=== PATIENT | male | born 1985 | race Caucasian/White ===

== ENCOUNTER → 2019-12-17 | Outpatient (CLI) | payer MEDICAID, SELFPAY ==
[2019-12-17 12:04] LABS: HEMATOCRIT 42.2 % (42.0-52.0); MEAN CORPUSCULAR HEMOGLOBIN 29.7 pg (27.0-33.0); MEAN CORPUSCULAR HGB CONC 33.2 g/dl (32.0-36.5); MEAN CORPUSCULAR VOLUME 89.4 fl (80.0-96.0); PLATELET COUNT, AUTOMATED 215 10^3/uL (150-450); RED BLOOD COUNT 4.72 10^6/uL (4.30-6.10); WHITE BLOOD COUNT 9.5 10^3/uL (4.0-10.0)
[2019-12-17 12:39] LABS: ALBUMIN 3.8 GM/DL (3.2-5.2); ALT/SGPT 62 U/L (12-78); BILIRUBIN,TOTAL 0.4 MG/DL (0.2-1.0); BLOOD UREA NITROGEN 18 MG/DL (7-18); CALCIUM LEVEL 8.9 MG/DL (8.5-10.1); CARBON DIOXIDE LEVEL 33 MEQ/L (21-32); CHLORIDE LEVEL 104 MEQ/L (98-107); CREATININE FOR GFR 0.87 MG/DL (0.70-1.30); GLOMERULAR FILTRATION RATE > 60.0 (>60); GLUCOSE, FASTING 90 MG/DL (70-100); POTASSIUM SERUM 4.7 MEQ/L (3.5-5.1); SODIUM LEVEL 139 MEQ/L (136-145); TOTAL PROTEIN 7.3 GM/DL (6.4-8.2)
[2019-12-17 13:31] LABS: CHLAMYDIA DNA AMPLIFICATION NEGATIVE (NEGATIVE); GC DNA AMPLIFICATION NEGATIVE (NEGATIVE)
[2019-12-18 11:45] LABS: HEPATITIS B SURFACE ANTIGEN NEGATIVE (NEGATIVE)
[2019-12-18 12:14] LABS: HIV 1&2 SCREEN CENTAUR NEGATIVE (NEGATIVE)
[2019-12-18 13:51] LABS: HEPATITIS C VIRUS ABY INDEX < 0.0 INDEX (<0.8)
== END ==
LOC: M LAB 11:11
PROVIDERS: ATTEND Family Medicine
DX: F11.20 Opioid dependence, uncomplicated (principal)

== ENCOUNTER → 2019-12-17 | Outpatient (CLI) | payer MEDICAID, SELFPAY ==
[2019-12-17 12:08] LABS: BASO # 0.1 10^3/uL (0.0-0.2); BASO % 0.7 % (0.0-1.0); EOS # 0.1 10^3/uL (0.0-0.5); EOS % 1.2 % (0.0-3.0); HEMATOCRIT 41.8 % (42.0-52.0); HEMOGLOBIN 14.1 g/dl (13.5-17.5); LYMPH # 2.8 10^3/uL (1.5-5.0); MEAN CORPUSCULAR HEMOGLOBIN 30.1 pg (27.0-33.0); MEAN CORPUSCULAR HGB CONC 33.7 g/dl (32.0-36.5); MEAN CORPUSCULAR VOLUME 89.3 fl (80.0-96.0); MONO # 0.9 10^3/uL (0.0-0.8); MONO % 9.4 % (0.0-5.0); NEUTROPHILS # 5.7 10^3/uL (1.5-8.5); NEUTROPHILS % 59.4 % (36.0-66.0); PLATELET COUNT, AUTOMATED 214 10^3/uL (150-450); RED BLOOD COUNT 4.68 10^6/uL (4.30-6.10); WHITE BLOOD COUNT 9.5 10^3/uL (4.0-10.0)
[2019-12-17 12:35] LABS: APPEARANCE, URINE CLEAR (CLEAR); BACTERIA, URINE AUTO NEGATIVE (NEGATIVE); BILIRUBIN, URINE AUTO NEGATIVE (NEGATIVE); BLOOD, URINE BLOOD NEGATIVE (NEGATIVE); COLOR, URINE STRAW (YELLOW); GLUCOSE, URINE (UA) AUTO NEGATIVE (NEGATIVE); KETONE, URINE AUTO NEGATIVE (NEGATIVE); LEUKOCYTE ESTERASE, URINE AUTO NEGATIVE (NEGATIVE); NITRITE, URINE AUTO NEGATIVE (NEGATIVE); PROTEIN, URINE AUTO NEGATIVE (NEGATIVE); RBC, URINE AUTO 1 /HPF (0-3); SPECIFIC GRAVITY URINE AUTO 1.005 (1.002-1.035); SQUAMOUS EPITHELIAL CELL UR AU 0 /HPF (0-6); UROBILINOGEN, URINE AUTO 0.2 mg/dL (0.0-2.0); WBC, URINE AUTO 0 /HPF (0-3)
[2019-12-17 12:44] LABS: ALBUMIN 3.9 GM/DL (3.2-5.2); ALT/SGPT 61 U/L (12-78); BILIRUBIN,TOTAL 0.4 MG/DL (0.2-1.0); BLOOD UREA NITROGEN 18 MG/DL (7-18); CALCIUM LEVEL 9.2 MG/DL (8.5-10.1); CARBON DIOXIDE LEVEL 35 MEQ/L (21-32); CHLORIDE LEVEL 102 MEQ/L (98-107); CREATININE FOR GFR 0.84 MG/DL (0.70-1.30); GLOMERULAR FILTRATION RATE > 60.0 (>60); GLUCOSE, FASTING 90 MG/DL (70-100); POTASSIUM SERUM 4.5 MEQ/L (3.5-5.1); SODIUM LEVEL 138 MEQ/L (136-145); TOTAL PROTEIN 7.1 GM/DL (6.4-8.2)
[2019-12-18 12:08] LABS: HEPATITIS B SURFACE ANTIGEN NEGATIVE (NEGATIVE)
[2019-12-18 13:54] LABS: HEPATITIS B CORE ANTIBODY IGM NEGATIVE (NEGATIVE); HEPATITIS C VIRUS ABY INDEX < 0.0 INDEX (<0.8)
[2019-12-18 13:56] LABS: HEPATITIS A ANTIBODY IGM NEGATIVE (NEGATIVE)
== END ==
LOC: M LAB 11:06
PROVIDERS: ATTEND Physician Assistant Medical
DX: Z02.2 Encounter for examination for admission to residential institution (principal)

== ENCOUNTER → 2020-07-29 | Outpatient (CLI) | payer OTHER | LOC: M LAB 13:44 | PROVIDERS: ATTEND Physician Assistant Medical | DX: N62 Hypertrophy of breast (principal) ==

== ENCOUNTER → 2020-08-24 | Outpatient (CLI) | payer OTHER ==
[2020-08-24 10:58] LABS: THYROID STIMULATING HORMONE 1.57 uIU/ML (0.358-3.740)
[2020-08-24 11:00] LABS: PROLACTIN 8.9 NG/ML (2.1-17.7)
[2020-08-24 11:01] LABS: FOLLICLE STIMULATING HORMONE 3.3 mIU/mL (1.4-18.1)
== END ==
LOC: M LAB 09:52
PROVIDERS: ATTEND Nurse Practitioner Family
DX: E29.1 Testicular hypofunction (principal)

== ENCOUNTER → 2020-09-07 | Outpatient (CLI) | payer OTHER ==
[2020-09-09 21:07] LABS: TESTOSTERONE %FREE+WEAKLY BOUN 22.6 % (9.0-46.0); TESTOSTERONE FREE+WEAKLY BOUND 16.3 ng/dL (40.0-250.0); TESTOSTERONE TOTAL 72 ng/dL (264-916)
== END ==
LOC: M LAB 09:59
PROVIDERS: ATTEND Nurse Practitioner Family
DX: E29.1 Testicular hypofunction (principal)

== ENCOUNTER 2020-10-24 13:05 | Emergency (ER) | payer OTHER ==
[~2020-10-24] VITALS: Ht 175.3 cm; Wt 103.6 kg
[2020-10-24] MEDS ORDERED: METHADONE 10 MG TAB (S0109) PO ONE (15:00)
[2020-10-24] MEDS ORDERED: DOK1CAP7 PO (16:27)
[2020-10-24] MEDS ORDERED: AMPH1CAP15 PO (16:27)
[2020-10-24] MEDS ORDERED: COLBTA PO (16:27)
[2020-10-24] MEDS ORDERED: PROP40TA62 PO (16:27)
[2020-10-24] MEDS ORDERED: DOXY100C PO (16:27)
[2020-10-24] MEDS ORDERED: DOXE75CA2 PO (16:27)
[2020-10-24] MEDS ORDERED: TEST200I14 PO (16:27)
[2020-10-24] MEDS ORDERED: CITA20TA6 PO (16:27)
[2020-10-24 16:44] VITALS: BP 147/87
== END 2020-10-24 16:55 | disposition home or self-care (01) ==
LOC: M ED 13:05
DX: F15.93 Other stimulant use, unspecified with withdrawal (principal); F11.10 Opioid abuse, uncomplicated; F17.200 Nicotine dependence, unspecified, uncomplicated; Z79.890 Hormone replacement therapy; Z79.899 Other long term (current) drug therapy

== ENCOUNTER 2020-11-15 19:40 | Emergency (ER) | payer OTHER ==
[~2020-11-15] VITALS: Ht 175.3 cm; Wt 96.3 kg
[~2020-11-15 19:40] MED LIST: AMPH1CAP15 PO; CITA20TA6 PO; COLBTA PO; DOK1CAP7 PO; DOXE75CA2 PO; DOXY100C PO; PROP40TA62 PO; TEST200I14 PO
[2020-11-15] MEDS ORDERED: METH10TA2 PO (19:55)
[2020-11-15] MEDS ORDERED: NS 1,000 ML IV ONE ×2 (22:00→23:15)
--- NOTE | 2020-11-15 22:21 | REPVR ---
PROCEDURE INFORMATION: Exam: XR Chest, 2 Views Exam date and time: 11/15/2020 9:51 PM Age: 35 years old Clinical indication: Other: Dyspnea; Additional info: Dyspnea/cough TECHNIQUE: Imaging protocol: XR of the chest Views: 2 views. COMPARISON: No relevant prior studies available. FINDINGS: Lungs: Unremarkable. No consolidation. Pleural space: Unremarkable. No pleural effusion. No pneumothorax. Heart/Mediastinum: Unremarkable. No cardiomegaly. Bones/joints: Unremarkable. IMPRESSION: Negative chest. Electronically signed by: Preet Brown On 11/15/2020 22:21:29 PM
[2020-11-15 22:26] LABS: BASO # 0.1 10^3/uL (0.0-0.2); BASO % 0.6 % (0.0-1.0); EOS % 0.2 % (0.0-3.0); HEMATOCRIT 54.6 % (42.0-52.0); HEMOGLOBIN 18.4 g/dl (13.5-17.5); LYMPH # 2.1 10^3/uL (1.5-5.0); LYMPH % 18.2 % (24.0-44.0); MEAN CORPUSCULAR HEMOGLOBIN 29.4 pg (27.0-33.0); MEAN CORPUSCULAR HGB CONC 33.7 g/dl (32.0-36.5); MEAN CORPUSCULAR VOLUME 87.4 fl (80.0-96.0); MONO # 1.1 10^3/uL (0.0-0.8); MONO % 9.4 % (0.0-5.0); NEUTROPHILS # 8.4 10^3/uL (1.5-8.5); NEUTROPHILS % 71.3 % (36.0-66.0); PLATELET COUNT, AUTOMATED 260 10^3/uL (150-450); RED BLOOD COUNT 6.25 10^6/uL (4.30-6.10); WHITE BLOOD COUNT 11.8 10^3/uL (4.0-10.0)
[2020-11-15 23:04] LABS: ALBUMIN 4.4 GM/DL (3.2-5.2); ALT/SGPT 108 U/L (12-78); BILIRUBIN,DIRECT 0.3 MG/DL (0.0-0.2); BILIRUBIN,TOTAL 1.1 MG/DL (0.2-1.0); BLOOD UREA NITROGEN 14 MG/DL (7-18); CALCIUM LEVEL 10.2 MG/DL (8.5-10.1); CARBON DIOXIDE LEVEL 27 MEQ/L (21-32); CHLORIDE LEVEL 107 MEQ/L (98-107); CREATININE FOR GFR 1.06 MG/DL (0.70-1.30); GLOMERULAR FILTRATION RATE > 60.0 (>60); GLUCOSE, FASTING 87 MG/DL (70-100); POTASSIUM SERUM 4.1 MEQ/L (3.5-5.1); SODIUM LEVEL 141 MEQ/L (136-145); TOTAL PROTEIN 8.6 GM/DL (6.4-8.2)
[2020-11-15] MEDS ORDERED: KETOROLAC 30 MG/ML 1ML VIAL IV ONE (23:15)
[2020-11-16] MEDS ORDERED: METHADONE 10 MG TAB (S0109) PO ONE (01:15)
[2020-11-16] MEDS ORDERED: KETOROLAC 30 MG/ML 1ML VIAL IV ONE (01:15)
[2020-11-16] MEDS ORDERED: AUGM875T28 PO (02:32)
[2020-11-16] MEDS ORDERED: AUGMENTIN 875 MG TAB PO ONE (02:45)
[2020-11-16 03:25] VITALS: BP 149/78
== END 2020-11-16 03:30 | disposition home or self-care (01) ==
LOC: M ED 19:40
DX: J06.9 Acute upper respiratory infection, unspecified (principal); F11.23 Opioid dependence with withdrawal; Z20.822 Contact with and (suspected) exposure to COVID-19; F17.200 Nicotine dependence, unspecified, uncomplicated; Z79.899 Other long term (current) drug therapy
CPT/HCPCS: 36415; 71046; 80048; 80076; 84443; 85025; 87040; 87486; 87581; 87633; 87798; 93041; 94760; 96360; 96361; 96374; 99285; J1885

== ENCOUNTER 2020-12-06 12:47 | Emergency (ER) | payer OTHER ==
[~2020-12-06] VITALS: Ht 175.3 cm; Wt 96.3 kg
[~2020-12-06 12:47] MED LIST changes: +AUGM875T28 PO; +METH10TA2 PO
[2020-12-06] MEDS ORDERED: LORazepam 2 MG/ML VIAL IV STA (12:53)
[2020-12-06] MEDS ORDERED: NS 1,000 ML IV ONE ×3 (13:00→15:45)
[2020-12-06 13:17] LABS: BASO # 0.1 10^3/uL (0.0-0.2); BASO % 0.5 % (0.0-1.0); HEMATOCRIT 50.5 % (42.0-52.0); HEMOGLOBIN 17.4 g/dl (13.5-17.5); LYMPH # 1.4 10^3/uL (1.5-5.0); LYMPH % 14.5 % (24.0-44.0); MEAN CORPUSCULAR HEMOGLOBIN 28.8 pg (27.0-33.0); MEAN CORPUSCULAR HGB CONC 34.5 g/dl (32.0-36.5); MEAN CORPUSCULAR VOLUME 83.6 fl (80.0-96.0); MONO # 0.6 10^3/uL (0.0-0.8); MONO % 6.6 % (0.0-5.0); NEUTROPHILS # 7.5 10^3/uL (1.5-8.5); PLATELET COUNT, AUTOMATED 382 10^3/uL (150-450); RED BLOOD COUNT 6.04 10^6/uL (4.30-6.10); WHITE BLOOD COUNT 9.7 10^3/uL (4.0-10.0)
[2020-12-06 14:03] LABS: ACETAMINOPHEN LEVEL < 2.0 UG/ML (10.0-30.0); ALBUMIN 4.1 GM/DL (3.2-5.2); ALT/SGPT 70 U/L (12-78); BILIRUBIN,DIRECT 0.3 MG/DL (0.0-0.2); BLOOD UREA NITROGEN 15 MG/DL (7-18); CALCIUM LEVEL 9.3 MG/DL (8.5-10.1); CARBON DIOXIDE LEVEL 25 MEQ/L (21-32); CHLORIDE LEVEL 102 MEQ/L (98-107); CPK CREATINE PHOSPHOKINASE 87 U/L (39-308); CREATININE FOR GFR 1.53 MG/DL (0.70-1.30); ETHYL ALCOHOL (ETHANOL) < 0.003 % (0.000-0.010); GLOMERULAR FILTRATION RATE 55.7 (>60); GLUCOSE, FASTING 251 MG/DL (70-100); POTASSIUM SERUM 3.7 MEQ/L (3.5-5.1); SALICYLATE LEVEL < 1.7 MG/DL (5.0-30.0); SODIUM LEVEL 136 MEQ/L (136-145); TOTAL PROTEIN 8.5 GM/DL (6.4-8.2)
[2020-12-06 16:17] VITALS: BP 133/63
--- NOTE | 2020-12-07 14:40 | ECGEPIP ---
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
== END 2020-12-06 16:37 | disposition home or self-care (01) ==
LOC: EDBD 12:47 → M ED 12:47
DX: F15.10 Other stimulant abuse, uncomplicated (principal); R00.0 Tachycardia, unspecified; Z79.899 Other long term (current) drug therapy
CPT/HCPCS: 36415; 80048; 80076; 82550; 84443; 85025; 93005; 93041; 94760; 96361; 96374; 99285; G0480; J2060

== ENCOUNTER 2020-12-28 14:57 | Emergency (ER) | payer OTHER ==
[~2020-12-28] VITALS: Ht 175.3 cm; Wt 86.4 kg
[2020-12-28] MEDS ORDERED: NS 1,000 ML IV ONE (15:15)
[2020-12-28] MEDS ORDERED: ACETAMINOPHEN TAB 650MG DOSE (2X325MG) PO ONE (15:15)
[2020-12-28 15:38] LABS: HEMATOCRIT 50.9 % (42.0-52.0); HEMOGLOBIN 17.9 g/dl (13.5-17.5); MEAN CORPUSCULAR HEMOGLOBIN 30.1 pg (27.0-33.0); MEAN CORPUSCULAR HGB CONC 35.2 g/dl (32.0-36.5); MEAN CORPUSCULAR VOLUME 85.5 fl (80.0-96.0); PLATELET COUNT, AUTOMATED 213 10^3/uL (150-450); RED BLOOD COUNT 5.95 10^6/uL (4.30-6.10); WHITE BLOOD COUNT 11.2 10^3/uL (4.0-10.0)
--- NOTE | 2020-12-28 15:51 | REP ---
INDICATION: SOB. COMPARISON: Comparison chest x-ray 15 November 2020. TECHNIQUE: Two views.. FINDINGS: EKG monitoring electrodes overlie the chest. The lungs are well inflated and clear. The pleural angles are sharp. Heart size is normal. Pulmonary vasculature is not increased. No bony abnormality is seen. IMPRESSION: No active disease.. <Electronically signed by Ochoa Tomlin > 12/28/20 [id number]
--- OUTSIDE RECORDS SUMMARY | 2020-12-28 16:19 | CCD ---
Author Author [facility] Organization [facility] Address Unknown Phone Unavailable Care Team Providers Care Heating And Ventilating Drafter Name Role Phone DARLENE BAUM MD Unavailable Unavailable ASADARLENE Khan MD Unavailable Unavailable ASADARLENE Khan MD Unavailable Unavailable ASADARLENE Khan MD Unavailable Unavailable ASADARLENE Khan MD Unavailable Unavailable ASADARLENE Khan MD Unavailable Unavailable DARLENE BAUM MD Unavailable Unavailable Yasmany Pereyra MD Unavailable Unavailable Yasmany Pereyra MD Unavailable Unavailable Yasmany Pereyra MD Unavailable Unavailable Preet Jj Jr DO Unavailable Unavailable Preet Jj Jr DO Unavailable Unavailable Preet Jj Jr DO Unavailable Unavailable Preet Jj Jr DO Unavailable Unavailable Preet Jj Jr DO Unavailable Unavailable COOK, B PILY NURSING INFORMATICS SPECIALIST Unavailable Unavailable COOK, B PILY NURSING INFORMATICS SPECIALIST Unavailable Unavailable COOK, B PILY NURSING INFORMATICS SPECIALIST Unavailable Unavailable COOK, B PILY NURSING INFORMATICS SPECIALIST Unavailable Unavailable COOK, B PILY NURSING INFORMATICS SPECIALIST Unavailable Unavailable COOK, B PILY NURSING INFORMATICS SPECIALIST Unavailable Unavailable COOK, B PILY NURSING INFORMATICS SPECIALIST Unavailable Unavailable COOK, B PILY NURSING INFORMATICS SPECIALIST Unavailable Unavailable COOK, B PILY NURSING INFORMATICS SPECIALIST Unavailable Unavailable COOK, B PILY NURSING INFORMATICS SPECIALIST Unavailable Unavailable COOK, B PILY NURSING INFORMATICS SPECIALIST Unavailable Unavailable COOK, B PILY NURSING INFORMATICS SPECIALIST Unavailable Unavailable COOK, B PILY NURSING INFORMATICS SPECIALIST Unavailable Unavailable COOK, B PILY NURSING INFORMATICS SPECIALIST Unavailable Unavailable COOK, B PILY NURSING INFORMATICS SPECIALIST Unavailable Unavailable COOK, B PILY NURSING INFORMATICS SPECIALIST Unavailable Unavailable COOK, B PILY NURSING INFORMATICS SPECIALIST Unavailable Unavailable COOK, B PILY NURSING INFORMATICS SPECIALIST Unavailable Unavailable COOK, B PILY NURSING INFORMATICS SPECIALIST Unavailable Unavailable COOK, B PILY NURSING INFORMATICS SPECIALIST Unavailable Unavailable COOK, B PILY NURSING INFORMATICS SPECIALIST Unavailable Unavailable COOK, B PILY NURSING INFORMATICS SPECIALIST Unavailable Unavailable COOK, B PILY NURSING INFORMATICS SPECIALIST Unavailable Unavailable COOK, B PILY NURSING INFORMATICS SPECIALIST Unavailable Unavailable COOK, B PILY NURSING INFORMATICS SPECIALIST Unavailable Unavailable COOK, B PILY NURSING INFORMATICS SPECIALIST Unavailable Unavailable COOK, B PILY NURSING INFORMATICS SPECIALIST Unavailable Unavailable COOK, B PILY NURSING INFORMATICS SPECIALIST Unavailable Unavailable COOK, B PILY NURSING INFORMATICS SPECIALIST Unavailable Unavailable COOK, B PILY NURSING INFORMATICS SPECIALIST Unavailable Unavailable COOK, B PILY NURSING INFORMATICS SPECIALIST Unavailable Unavailable COOK, B PILY NURSING INFORMATICS SPECIALIST Unavailable Unavailable COOK, B PILY NURSING INFORMATICS SPECIALIST Unavailable Unavailable COOK, B PILY NURSING INFORMATICS SPECIALIST Unavailable Unavailable COOK, B PILY NURSING INFORMATICS SPECIALIST Unavailable Unavailable COOK, B PILY NURSING INFORMATICS SPECIALIST Unavailable Unavailable COOK, B PILY NURSING INFORMATICS SPECIALIST Unavailable Unavailable COOK, B PILY NURSING INFORMATICS SPECIALIST Unavailable Unavailable COOK, B PILY NURSING INFORMATICS SPECIALIST Unavailable Unavailable COOK, B PILY NURSING INFORMATICS SPECIALIST Unavailable Unavailable COOK, B PILY NURSING INFORMATICS SPECIALIST Unavailable Unavailable COOK, B PILY NURSING INFORMATICS SPECIALIST Unavailable Unavailable COOK, B PILY NURSING INFORMATICS SPECIALIST Unavailable Unavailable COOK, B PILY NURSING INFORMATICS SPECIALIST Unavailable Unavailable COOK, B PILY NURSING INFORMATICS SPECIALIST Unavailable Unavailable COOK, B PILY NURSING INFORMATICS SPECIALIST Unavailable Unavailable COOK, B PILY NURSING INFORMATICS SPECIALIST Unavailable Unavailable COOK, B PILY NURSING INFORMATICS SPECIALIST Unavailable Unavailable COOK, B PILY NURSING INFORMATICS SPECIALIST Unavailable Unavailable COOK, B PILY NURSING INFORMATICS SPECIALIST Unavailable Unavailable COOK, B PILY NURSING INFORMATICS SPECIALIST Unavailable Unavailable COOK, B PILY NURSING INFORMATICS SPECIALIST Unavailable Unavailable COOK, B PILY NURSING INFORMATICS SPECIALIST Unavailable Unavailable COOK, B PILY NURSING INFORMATICS SPECIALIST Unavailable Unavailable COOK, B PILY NURSING INFORMATICS SPECIALIST Unavailable Unavailable COOK, B PILY NURSING INFORMATICS SPECIALIST Unavailable Unavailable COOK, B PILY NURSING INFORMATICS SPECIALIST Unavailable Unavailable COOK, B PILY NURSING INFORMATICS SPECIALIST Unavailable Unavailable COOK, B PILY NURSING INFORMATICS SPECIALIST Unavailable Unavailable COOK, B PILY NURSING INFORMATICS SPECIALIST Unavailable Unavailable COOK, B PILY NURSING INFORMATICS SPECIALIST Unavailable Unavailable COOK, B PILY NURSING INFORMATICS SPECIALIST Unavailable Unavailable COOK, B PILY NURSING INFORMATICS SPECIALIST Unavailable Unavailable COOK, B PILY NURSING INFORMATICS SPECIALIST Unavailable Unavailable Asar, Hamilton Colon MD Unavailable Unavailable Ja Schaefer MD Unavailable Unavailable Ja Schaefer MD Unavailable Unavailable Myrna Moore MD Unavailable Unavailable Myrna Moore MD Unavailable Unavailable Khaliq, Nubiaparja MD Unavailable Unavailable Khaliq, Mahpara MD Unavailable Unavailable Khaliq, Mahpara MD Unavailable Unavailable Khaliq, Mahpara MD Unavailable Unavailable Jose, Marciano DO Unavailable Unavailable Jose, Marciano DO Unavailable Unavailable [place], Marciano DO Unavailable Unavailable Jose, Marciano DO Unavailable Unavailable NOSTROM, SERAFIN NURSING INFORMATICS SPECIALIST Unavailable Unavailable NOSTROM, SERAFIN NURSING INFORMATICS SPECIALIST Unavailable Unavailable NOSTROM, SERAFIN NURSING INFORMATICS SPECIALIST Unavailable Unavailable NOSTROM, SERAFIN NURSING INFORMATICS SPECIALIST Unavailable Unavailable NOSTROM, SERAFIN NURSING INFORMATICS SPECIALIST Unavailable Unavailable NOSTROM, SERAFIN NURSING INFORMATICS SPECIALIST Unavailable Unavailable NOSTROM, SERAFIN NURSING INFORMATICS SPECIALIST Unavailable Unavailable NOSTROM, SERAFIN NURSING INFORMATICS SPECIALIST Unavailable Unavailable NOSTROM, SERAFIN NURSING INFORMATICS SPECIALIST Unavailable Unavailable NOSTROM, SERAFIN NURSING INFORMATICS SPECIALIST Unavailable Unavailable NOSTROM, SERAFIN NURSING INFORMATICS SPECIALIST Unavailable Unavailable NOSTROM, SERAFIN NURSING INFORMATICS SPECIALIST Unavailable Unavailable NOSTROM, SERAFIN NURSING INFORMATICS SPECIALIST Unavailable Unavailable Dille, E Genesis DDS Unavailable Unavailable Dille, E Genesis DDS Unavailable Unavailable Dille, E Genesis DDS Unavailable Unavailable Dille, E Genesis DDS Unavailable Unavailable Ja Schaefer MD Unavailable Unavailable LORENC, HALIMA MYERS Unavailable Unavailable LORENC, HALIMA MYERS Unavailable Unavailable LORENC, HALIMA MYERS Unavailable Unavailable LORENC, HALIMA MYERS Unavailable Unavailable LORENC, HALIMA MYERS Unavailable Unavailable LORENC, HALIMA MYERS Unavailable Unavailable LORENC, HALIMA MYERS Unavailable Unavailable Steve Jj Jr DO Unavailable Unavailable Nostrom, R Serafin DISABILITY BENEFITS SPECIALIST Unavailable Unavailable Re-disclosure Warning The records that you are about to access may contain information from federally-assisted alcohol or drug abuse programs. If such information is present, then the following federally mandated warning applies: This information has been disclosed to you from records protected by federal confidentiality rules (42 CFR part 2). The federal rules prohibit you from making any further disclosure of this information unless further disclosure is expressly permitted by the written consent of the person to whom it pertains or as otherwise permitted by 42 CFR part 2. A general authorization for the release of medical or other information is NOT sufficient for this purpose. The Federal rules restrict any use of the information to criminally investigate or prosecute any alcohol or drug abuse patient.The records that you are about to access may contain highly sensitive health information, the redisclosure of which is protected by Article 27-F of the [facility] Public Health law. If you continue you may have access to information: Regarding HIV / AIDS; Provided by facilities licensed or operated by the [facility] Office of Mental Health; or Provided by the [facility] Office for People With Developmental Disabilities. If such information is present, then the following [facility] mandated warning applies: This information has been disclosed to you from confidential records which are protected by state law. State law prohibits you from making any further disclosure of this information without the specific written consent of the person to whom it pertains, or as otherwise permitted by law. Any unauthorized further disclosure in violation of state law may result in a fine or fci sentence or both. A general authorization for the release of medical or other information is NOT sufficient authorization for further disc losure. Allergies and Adverse Reactions Type Description Substance Reaction Status Data Source(s ) Drug allergy Drug allergy No Known Drug Allergies [facility] Encounters Encounter Providers Location Date Indications Data Source(s ) Outpatient [address] [facility] [id number] 10/18/2020 12:00:00 AM EST eCW1 (Formerly [facility]) Outpatient Attender: PILY AVENDAÑO NP Physical Therapy 09/29/2020 0 8:45:00 AM EST [facility] ([facility]) Outpatient Attender: PILY AVENDAÑO NP Physical Therapy 08/23/2020 0 1:45:00 PM EDT [facility] ([facility]) Outpatient Attender: Genesis Arreola DDS 07/30/2020 07:51:[address] [facility] Outpatient Attender: Genesis Arreola DDS 07/29/2020 11:02:[address] [facility] Outpatient Attender: Genesis Arreola DDS 07/29/2020 10:00:[address] [facility] Outpatient Attender: Genesis Arreola DDS 07/29/2020 12:02:[address] [facility] Outpatient Attender: Genesis Arreola DDS 07/28/2020 10:52:[address] [facility] Outpatient Attender: Genesis Arreola DDS 07/28/2020 10:50:[address] [facility] Outpatient Attender: Genesis Arreola DDS 07/01/2020 02:15:[address] [facility] Outpatient Attender: Genesis Arreola DDS 05/09/2020 10:17:[address] [facility] Outpatient Attender: Genesis Arreola DDS 05/09/2020 09:35:[address] [facility] Outpatient Attender: Genesis Arreola DDS 04/25/2020 02:14:01 P [facility] Outpatient Attender: Genesis Christianole DDS 04/25/2020 02:14:00 P [facility] Outpatient Attender: Genesis Christianoleandro DDS 04/25/2020 01:44:00 P [facility] Outpatient Attender: Genesis Maxwell DDS 04/22/2020 12:02:18 A [facility] Outpatient Attender: Genesis Maxwell DDS 04/21/2020 10:13:01 A [facility] Outpatient Attender: Genesis Maxwell DDS 04/19/2020 08:02:39 P [facility] Outpatient Attender: Genesis Maxwell DDS 04/09/2020 12:18:44 A [facility] Outpatient Attender: Genesis Maxwell CAUSEYS 01/25/2020 09:01:07 P [facility] Outpatient Attender: Genesis Maxwell CAUSEYS 01/25/2020 01:07:04 P [facility] Outpatient Attender: Genesis Maxwell DDS 01/25/2020 12:32:01 P [facility] Outpatient Attender: Genesis Maxwell DDS 01/25/2020 12:25:00 P [facility] Outpatient Attender: Genesis Maxwell DDS 01/20/2020 09:01:08 P [facility] Outpatient Attender: Genesis Maxwell DDS 01/20/2020 01:42:03 P [facility] Outpatient Attender: Genesis Maxwell DDS 01/20/2020 01:42:02 P [facility] Outpatient Attender: Genesis Maxwell DDS 01/20/2020 12:57:01 P [facility] Outpatient Attender: Genesis Arreola DDS 01/12/2020 08:12:00 A [facility] Outpatient Attender: Genesis Arreola DDS 12/23/2019 05:22:01 P [facility] Outpatient Attender: Genesis Arreola DDS 12/23/2019 08:44:01 A [facility] Outpatient Attender: Genesis Arreola DDS 12/23/2019 08:43:03 A [facility] Outpatient Attender: Genesis Arreola DDS 12/23/2019 07:34:00 A [facility] Outpatient Attender: Genesis Arreola DDS 12/22/2019 04:24:00 P [facility] Outpatient Attender: Genesis Arreola DDS 12/22/2019 04:21:00 P [facility] Outpatient Attender: Genesis Arreola DDS 12/22/2019 04:20:01 P [facility] Outpatient Attender: Genesis Arreola DDS 12/22/2019 02:36:02 P [facility] Outpatient Attender: Genesis Arreola DDS 12/22/2019 02:14:02 P [facility] Outpatient [facility] 12/22/2019 02:13:02 PM [facility] Outpatient [facility] 12/22/2019 12:24:00 PM [facility] Outpatient [facility] 12/22/2019 12:08:00 PM [facility] Outpatient [facility] 12/14/2019 01:17:01 PM [facility]patient [facility] 12/09/2019 09:48:01 AM [facility]patient [facility] 12/04/2019 09:01:07 PM [facility] Outpatient [facility] 12/04/2019 01:52:01 PM [facility] Outpatient [facility] 12/04/2019 12:04:00 PM [facility] Outpatient [facility] 11/18/2019 09:49:00 AM [facility] Inpatient Attender: Darlene Cisse nder: DARLENE BAUM MDAdmitter: DARLENE BAUM MD [facility] 11/17/2019 04:22:00 PM [facility] 12/08/2019 10:25:00 AM [facility] PSYCHOACTIVE SUBSTANCE DEPENDENCE [facility] PSYCHOACTIVE SUBSTANCE DEPENDENCE Patient discharged. Outpatient [facility] 11/15/2019 12:26:00 PM [facility] Inpatient Attender: Keyon Inman kassandra: Keyon Pereyra MDAdmitter: Keyon Pereyra MD -[facility] 11/14/2019 09:00:00 PM EST - 11/17/2019 02:52:00 PM EST F1920 [facility] F1920 Patient discharged. Inpatient Attender: Marciano C[place] nder: Yandy Schaefer MDAttender: Yandy Schaefer MDAdmitter: Yandy Silvano MDConsultant: Myrna Moore MDConsultant: Serafin Muñoz RNPConsultant: SERAFIN MUÑOZ NURSING INFORMATICS SPECIALIST [facility] 01/2020 09:32:00 PM EST - 11/14/2019 01:30:00 PM EST CHEST PAIN, COCAINE ABUSE-IV [facility] CHEST PAIN, COCAINE ABUSE-IV Patient discharged. Inpatient Attender: Jr Steve Pederson OAttender: Steve Jj JrAdmitter: Steve Jj Jr ED-[facility] 09/23/2019 02:39:00 PM EST - 09/30/2019 09:00:00 AM EST F19.20 [facility] F19.20 Patient discharged. Emergency Attender: HALIMA CONROY MD [facility] 2018 08:19:00 AM EST - 09/23/2019 02:07:[address] [facility] OVERDOSE Patient discharged. Medications Medication Brand Name Start Date Product Form Dose Route Admi nistrative Instructions Pharmacy Instructions Status Indications Reaction Description Data Source(s) doxycycline hyclate 100 MG Oral Capsule Doxycycline Hy clate 100 MG Doxycycline Hyclate 100 MG 10/18/2020 12:00:00 AM EST 1.0 {capsule} active Doxycycline Hyclate 100 MG eCW1 (Formerly [facility]) Colchicine 0.5 MG / Probenecid 500 MG Or al Tablet Colchicine-Probenecid 0.5-500 MG Colchicine-Probenecid 0.5-500 MG 10/18/2020 12:00:00 AM EST 1.0 {tablet} active Colchicine-Probenecid 0.5 -500 MG eCW1 (Formerly [facility]) Insurance Providers Payer name Policy type / Coverage type Policy ID Covered republican ID Covered republican's relationship to [place] Policy [place] Plan Information [facility] [id number] SP [id number] [facility] O [id number] S [id number] [facility] [id number] SP [id number] [facility] [id number] SP [id number] [facility] [id number] SP [id number] [facility]) O [id number] S [id number] [facility] O UNAVAILABLE S UNAVAILABLE Managed Care - [facility] Community Plan P [id number] S [id number] Medicaid S [id number] S [id number] [employer] COMMUNITY PL[facility] [id number] SP [id number] Medicaid S [id number] S [id number] Managed Care - [facility] Community Plan P UNAVAILABLE S UNAVAILABLE MEDICAID [id number] SP [id number] MEDICAID [id number] SP [id number] Medicaid S UNAVAILABLE S UNAVAILA BLE SELF PAY ONLY [id number] SP [id number] MEDICAID [id number] S [id number] MEDICAID [id number] S [id number] SELF PAY S SELF PAY S [facility] [id number] S [id number] Problems, Conditions, and Diagnoses Code Display Name Description Problem Type Effective Dates Data Source(s) N48.6 [id number] Peyronie disease Problem 10/18/2020 12:00:00 AM EST eCW1 (Formerly [facility]) 521.00 Dental caries Dental caries 04/25/2020 02:13:54 PM EDT [facility] [id number] Gastro-esophageal reflux disease without esophagitis Gastro-esophageal reflux disease without esophagitis 01/20/2020 01:41:40 PM ED T [facility] 564.09 Chronic constipation Chronic constipation 01/19 01:41:40 PM EDT [facility] 724.2 Acute low back pain Acute low back pain 020 01:41:40 PM EDT [facility] 525.64 Fractured dental restorative material wi th loss of material Fractured dental restorative material with loss of material 12/23/2019 08:42:42 AM [facility] R73.9 Hyperglycemia, unspecified HYPERGLYCEMIA, UNSPECIFIED Diagnosis 11/17/2019 04:22:00 PM [facility] E87.1 Hypo-osmolality and hyponatremia HYPO-OSMOLALITY AND HYPONATREMIA Diagnosis 11/17/2019 04:22:00 PM [facility] E55.9 Vitamin D deficiency, unspecified VITAMIN D DEFI CIENCY, UNSPECIFIED Diagnosis 11/17/2019 04:22:00 PM [facility] 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 SPECIFIC READING DISORDER Di agnosis 11/17/2019 04:22:00 PM [facility] F90.9 Attention-deficit hyperactivity disorder , unspecified type ATTENTION- DEFICIT HYPERACTIVITY DISORDER, UNSPECIFIED TYPE Diagnosis 11/17 04:22:00 PM [facility] F41.9 Anxiety disorder, unspecified ANXIETY DISORDER, UNSPEC IFIED Diagnosis 11/17/2019 04:22:00 PM [facility] F32.9 Major depressive disorder, single episod e, unspecified MAJOR DEPRESSIVE DISORDER, SINGLE EPISODE, UNSPECIFIED Diagnosis 11/17/2019 04:22:00 PM [facility] Z86.19 Personal history of other infectious and parasitic diseases PERSONAL HISTORY OF OTHER INFECTIOUS AND PARASITIC DISEASES Diagnosis 05/2020 04:22:00 PM [facility] F12.20 Cannabis dependence, uncomplicated CANNABIS DEPE NDENCE, UNCOMPLICATED Diagnosis 11/17/2019 04:22:00 PM [facility] F17.210 Nicotine dependence, cigarettes, uncompl icated NICOTINE DEPENDENCE, CIGARETTES, UNCOMPLICATED Diagnosis 11/17/2019 04:22:00 PM [facility] F14.20 Cocaine dependence, uncomplicated COCAINE DEPEND ENCE, UNCOMPLICATED Diagnosis 11/17/2019 04:22:00 PM [facility] F11.20 Opioid dependence, uncomplicated OPIOID DEPENDEN CE, UNCOMPLICATED Diagnosis 11/17/2019 04:22:00 PM [facility] Y92.[address] or not applicable UNSPECIFIED PLACE OR NOT APPLICABLE Diagnosis 11/14/2019 09:00:00 PM [facility] X58.XXXA Exposure to other specified factors, ini tial encounter EXPOSURE TO OTHER SPECIFIED FACTORS, INITIAL ENCOUNTER Diagnosis 11/14/2019 09:00: 00 PM [facility] S90.229A Contusion of unspecified les ser toe(s) with damage to nail, initial encounter CONTUSION OF UNSP LESSER TOE(S) W DAMAGE TO NAIL, INIT Diagn osis 11/14/2019 09:00:00 PM [facility] F17.210 Nicotine dependence, cigarettes, uncompl icated NICOTINE DEPENDENCE, CIGARETTES, UNCOMPLICATED Diagnosis 11/14/2019 09:00:00 PM [facility] Z86.19 Personal history of other infectious and parasitic diseases PERSONAL HISTORY OF OTHER INFECTIOUS AND PARASITIC DISEASES Diagnosis 02/2020 09:00:00 PM [facility] F14.23 Cocaine dependence with withdrawal COCAINE DEPEN DENCE WITH WITHDRAWAL Diagnosis 11/14/2019 09:00:00 PM [facility] F11.23 Opioid dependence with withdrawal OPIOID DEPENDE NCE WITH WITHDRAWAL Diagnosis 11/14/2019 09:00:00 PM [facility] R07.9 Chest pain, unspecified CHEST PAIN, UNSPECIFIED Diagno sis 11/13/2019 09:32:00 PM [facility] F19.10 Other psychoactive substance abuse, unco mplicated OTHER PSYCHOACTIVE SUBSTANCE ABUSE, UNCOMPLICATED Diagnosis 11/13/2019 09:32:00 PM [facility] F14.129 Cocaine abuse with intoxication, unspeci fied COCAINE ABUSE WITH INTOXICATION, UNSPECIFIED Diagnosis 11/13/2019 09:32:00 PM [facility] Surgeries/Procedures Procedure Description Date Indications Data Source(s) Measurement of Cardiac Electrical Activity, External A pproach MEASUREMENT OF CARDIAC ELECTRICAL ACTIVITY, RN CARDIAC APPROACH 11/14/2019 12:00:00 AM [facility] Medication Management for Substance Abuse Treatment, N aloxone MEDS MGMT FOR SUBSTANCE ABUSE TREATMENT, NALOXONE 11/14/2019 12:00:00 AM [facility] Individual Counseling for Substance Abuse Treatment, C ontinuing Care INDIV RN RADIATION ONCOLOGY FOR SUBSTANCE ABUSE TREATMENT, CONTINUING CARE 11/14/2019 12:00:00 AM [facility] Detoxification Services for Substance Abuse Treatment DETOXIFICATION SERVICES FOR SUBSTANCE ABUSE TREATMENT 11/14/2019 12:00:00 AM [facility] MAGNESIUM ASSAY OF MAGNESIUM 11/14/2019 12:00:00 AM [facility] BASIC METABOLIC PANEL CALCIUM TOTAL METABOLIC PANEL TOTAL CA 11/14/2019 12:00:00 AM [facility] Non-covered item or service 11/14/2019 12:00:00 AM [facility] [id number] X-RAY EXAM CHEST 1 VIEW 11/13/2019 12:00:00 AM [facility] ECG ROUTINE ECG W/LEAST 12 LDS TRCG ONLY W/O I&R ELECTROCARD IOGRAM TRACING 11/13/2019 12:00:00 AM [facility] CULTURE BACTERIAL BLOOD AEROBIC W/ID ISOLATES BLOOD CULTURE FOR BACTERIA 11/13/2019 12:00:00 AM [facility] URINALYSIS MICROSCOPIC ONLY MICROSCOPIC EXAM OF URINE 2019 12:00:00 AM [facility] COLLECTION VENOUS BLOOD VENIPUNCTURE ROUTINE VENIPUNCTURE 12:00:00 AM [facility] THROMBOPLASTIN TIME PARTIAL PLASMA/WHOLE BLOOD THROMBOPLASTI N TIME PARTIAL 11/13/2019 12:00:00 AM [facility] PROTHROMBIN TIME PROTHROMBIN TIME 11/13/2019 12:00:00 AM [facility] BLOOD COUNT COMPLETE AUTO&AUTO DIFRNTL WBC COUNT COMPLETE CB C W/AUTO DIFF WBC 11/13/2019 12:00:00 AM [facility] [address]7330 DRUG SCREEN QUANTALCOHOLS 11/13/2019 12:00:00 AM [facility] [id number] DRUG TEST PRSMV CHEM ANLYZR 11/13/2019 12:00:00 AM [facility] [address] ANALGESICS NON-OPIOID 1 OR 2 11/13/2019 12:00:00 AM [facility] CREATINE KINASE TOTAL ASSAY OF CK (CPK) 11/13/2019 12:00:00 AM [facility] NATRIURETIC PEPTIDE ASSAY OF NATRIURETIC PEPTIDE 11/13/2019 12:00:0 0 AM [facility] LACTATE ASSAY OF LACTIC ACID 11/13/2019 12:00:00 AM [facility] TROPONIN QUANTITATIVE ASSAY OF TROPONIN QUANT 11/13/2019 12:00:00 A M [facility] LIPASE ASSAY OF LIPASE 11/13/2019 12:00:00 AM [facility] COMPREHENSIVE METABOLIC PANEL COMPREHEN METABOLIC PANEL 01/2020 12:00:00 AM [facility] Injection, lorazepam, 2 mg 11/13/2019 12:00:00 AM [facility] EMERGENCY DEPT VISIT HIGH SEVERITY&THREAT FUNCJ EMERGENCY DE PT VISIT 11/13/2019 12:00:00 AM [facility] Hospital observation service, per hour 11/13/2019 12:0 0:00 AM [facility] Results ID Date Data Source [id number] 11/15/2020 08:00:00 PM EST [facility] Name Value Range Interpretation Code Description Data Celeste rce(s) Supporting Document(s) SARS-CoV-2 (COVID 19) NEGATIVE - SARS-CoV-2 (COVID19) [facility] This lab was ordered by [facility] a nd reported by [facility]. ID Date Data Source [id number] 09/07/2020 10:09:00 AM EDT [facility] ([facility]) Name Value Range Interpretation Code Description Data Celeste rce(s) Supporting Document(s) Testosterone %Free+Weakly Boun 22.6 % 9.0-46.0 [facility] ([facility]) This test was developed and its performa nce characteristics determined by [facility]. It has not been cleared or approved by the Food and Drug Administration. Testosterone Total 72 ng/dL [id number] [facility] ([facility]) <content>Adult male reference interval i s based on a population of</content>
<content>healthy nonobese males (BMI <30) between 19 and 39 years</content>
<content>old. [place], et.al. JCEM 2017,102;2026-3587. PMID:</content>
<content>[id number].</content>
<content></content> Testosterone Free+Weakly Bound 16.3 ng/dL 40.0-250.0 [facility] ([facility]) Performed at: RN - [facility] [address] [id number] Tractor Expert: Carmen Dodd MD, Phone: [phone] Performed at: - [facility] [address] [id number] Tractor Expert: Sherri Ge MD, Phone: [phone] ID Date Data Source [id number] 09/07/2020 10:09:00 AM EDT [facility] ([facility]) Name Value Range Interpretation Code Description Data Celeste rce(s) Supporting Document(s) Testosterone [Mass/volume] in Serum or Plasma 62 ng/dL [id number] [facility] ([facility]) NORMAL RANGES ARE FOR ADULT FEMALES (OVE R 15 YRS) AND MALES (OVER 19 YRS). FOR PEDIATRIC RANGES PLE ASE CONSULT LITERATURE. ID Date Data Source [id number] 08/24/2020 10:10:00 AM EDT [facility] ([facility] ) Name Value Range Interpretation Code Description Data Celeste rce(s) Supporting Document(s) Testosterone Total Laboratory test result [facility] ([facility] ) Quantity was not sufficient for analysis . Testosterone Free+Weakly Bound Laboratory test result [facility] ([facility] ) Quantity was not sufficient for analysis . Testosterone %Free+Weakly Boun Laboratory test result [facility] ([facility] ) Quantity was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 DAST Score: 7 DAST Interpretation: Referral to Treatment Performed by: Perfecto Goldstein MA, January 20, 2020 1:14 PMPatient History Medical History:ADHDAlcohol abuseAnxietyBipolar disorderDepressionPTSDSubstance abuseDomestic violence/abuseSurgical History:dental surgeryFamily History:Heart disease (Mother)Cancer - Breast (Mother)Social/Personal History: Advised to Quit/Tobacco Education: YesChief Complaintannual exam/ establish careHistory of Present Illness (HPI)Tra Workman MA, am scribing for, and in the presence of, Adeel Villegas, 34 y/o pt here today to establish care. pt is on methadone through [facility]. pt states he has no concerns he is just here to establish care. pt denies SOB. pt states that he does have acid reflux. pt takes colace due to the constipation from the methadone. DO advises pt to take lactolose instead of colace, as colace can become addictive and if he stops taking it he could stop deficating. pt would like probiotics. pt does see counselor at [facility]. pt does complain of back pain. pt's heart is good, lungs are clear. DO will manipulate. Problem ReviewProblem List was reviewed and/or updated during this visit.Medication Reconciliation & ReviewMedication List was reviewed and/or updated during this visit, including review of any gxwf-[id number] medications, herbal therapies, and/or supplements.Allergy ReviewAllergy List was reviewed and/or updated during this visit.Adult Preventive CareProvider Calculated and Reviewed all Clinical Protocols for patient today. Screening Tobacco Screening: Smoking Status: current every day smoker (01/20/2020) Tobacco Use: Currently (01/20/2020) Advised to Quit: Yes (01/20/2020)Labs/Meds/Other Counseling-Nutrition and Physical Activity:BMI Interpretation: Overweight (01/20/2020) Counseling: Done (01/20/2020) Physical Activity: Done (01/20/2020)Review of Systems General: Denies loss of appetite, chills, dizziness, fatigue, fever, continued fever, headache, feeling ill, sweats, night sweats, sleep disturbances, weight loss. Cardiovascular: Denies chest pain, palpitations, feeling faint, trouble breathing w/exertion, SOB upon lying down, SOB at night, peripheral edema, elevated blood pressure, decreased heart rate. Respiratory: Denies cough, difficulty breathing, shortness of breath, excessive sputum, coughing up blood, wheezing, chest pain. Gastrointestinal: Complains of nausea, burning, constipation. Physical ExamGeneral Appearance: well nourished, well hydrated, no acute distressRespiratory, Auscultation: clear to auscultation bilaterally; no rales, rhonchi, or wheezesRespiratory, Effort: no intercostal retractions or use of accessory musclesAbdomen: soft, non-tender, no masses, bowel sounds norm alGait & Station: normalOrientation: oriented to time, place, and personMood & Affect: no depression, anxiety, or agitationJudgment & Insight: intactRate Your HealthIn general, would you say your health is? GoodAssessment & Plan Problems:Added: Chronic constipation (ICD-564.09) (VKG21-M79.09)Gastro-esophageal reflux disease without esophagitis (INU90-N20.9) Assessment: start protonixAcute low back pain (ICD-724.2) (THJ96-I24.5) Assessment: OMT done w/resolution of painAssessment not SavedChronic constipation (NLN55-H71.09): substitute lactulose (less dependency on colace)Medications:PROTONIX 40 MG ORAL TABLET DELAYED RELEASEENULOSE 10 GM/15ML ORAL SOLUTIONCOLACE 100 MG ORAL CAPSULEMULTI FOR HIM ORAL CAPSULEDOXEPIN HCL 75 MG ORAL CAPSULEBUSPIRONE HCL 7.5 MG ORAL TABLETMETHADONE HCL 5 MG/5ML ORAL SOLUTIONMedication Changes:Added: METHADONE HCL 5 MG/5ML ORAL SOLUTION-80mg PO DailyBUSPIRONE HCL 7.5 MG ORAL TABLET-1 tab PO TIDDOXEPIN HCL 75 MG ORAL CAPSULE-1 tab PO dailyMULTI FOR HIM ORAL CAPSULE-1 tab PO dailyCOLACE 100 MG ORAL CAPSULENew Prescription:ENULOSE 10 GM/15ML ORAL ALRMBPRL-5-6 tbsp po BID prn constipation Qty: 1[Pint] Refills: 5 Method: ElectronicPROTONIX 40 MG O RAL TABLET DELAYED RELEASE-i tab po QD Qty: 30[Tablet] Refills: 5 Method: ElectronicAllergies:No Known Allergies (updated 12/23/2019) Orders:Adult - Ofc Vst, NEW, Level III [CPT-13820] Medications:PROTONIX 40 MG ORAL TABLET DELAYED RELEASE (PANTOPRAZOLE SODIUM) i tab po QD #30[Tablet] x 5 Route:ORAL Entered and Authorized by: Adeel Villegas DO Method used: Electronically to [facility]* (retail) [address] [place] [address] Note to Pharmacy: Route: ORAL; RxID: [id number] 10 GM/15ML ORAL SOLUTION (LACTULOSE ENCEPHALOPATHY) 1-2 tbsp po BID prn constipation #1[Pint] x 5 Route:ORAL Entered and Authorized by: Adeel Villegas DO Method used: Electronically to [facility]* (retail) [address] [place] [address] Note to Pharmacy: Route: ORAL; RxID: [id number]][Immunization Management] Name Value Range Interpretation Code Description Data Celeste rce(s) Supporting Document(s) ID Date Data Source [id number] 12/23/2019 07:34:03 AM [facility] Current Problems: Fractured dental kayla rative material with loss of material (ICD-525.64) (QOF02-Z19.531)Problem list reviewed during this update.No known problems.Medication list reviewed during this update.No known medications.Allergy list reviewed during this update.No known allergies. Dental Chart: Procedures:Type - CDT Code - Description B - (D2335) Resin, 4 or more surfaces or involving incisal angle (anterior) on Tooth # 9 on Tooth Surface MFLI (Performed by Genesis Arreola DDS) Chart Notes:corbin (Dec 23 2019 8:42AM): [facility] (-)Per Pt. CC: none. HurriCaine (Kaia ermelon) Topical, UA infiltration, 1carp. Septocaine (Articaine HCL 4%) X 1:200.000 epi. Operative: #9-MFLI Etch, Futurabond, Light cured, A-3.5 , Grandioso, light cured. Excavated with High Speed. Occlusion checked and polished.No complications. POI. Assisted by PD. Pt was cooperative. NV: Genesis Hammer DDS by corbin (12/23/2019 8:42 AM): Tooth Notes and Watches: Assessment & Plan Problems:Added: Fractured dental restorative material with loss of material (ICD-525.64) (BSS70-V65.531)Allergies:No Known Allergies (updated 12/23/2019) Name Value Range Interpretation Code Description Data Celeste rce(s) Supporting Document(s) ID Date Data Source [id number] 12/22/2019 02:09:38 PM [facility] Problem list reviewed during this update .No known problems.Medication list reviewed during this update.No known medications.Allergy list reviewed during this update.No known allergies. Dental Chart: Procedures:Type - CDT Code - Description B - (D0140) Limited oral evaluation - problem focused on Tooth # 9 (Performed by Genesis Arreola DDS) B - (D0220) Intraoral, periapical, first radiographic image on Tooth # 9 (Performed by Genesis Arreola DDS) Treatments:Type - CDT Code - Description T - (D2335) Resin, 4 or more surfaces or involving incisal angle (anterior) on Tooth # 9 on Tooth Surface MFLI (Performed by Genesis Arreola DDS) Chart Notes:corbin (Dec 22 2019 2:35PM): S:Patient 17 min late for appt. , still doing paperwork. CC:" I have a chipped tooth in the front."O: RM[facility]x (-) Per Pt. no alleregy to any meds. History scanned in chart. HPI: [address]: 3-4 . # 9 PA taken, hurts w/ hot/ cold BP: 113/71 P: 75, #9 missing filling materialA: DDS recommends Fill ing , DX Missing restorative material P: 9- MFLI restorationInformed Pt about new pain management policy of the clinic regarding about narcotic,told pt to alternate Ibuprophen 600- 800mg and tylenol 500mg every 4 to 6 hrs for pain when needed Assisted By: NV: Genesis Voss DDS (12/22/2019 2:35 PM): Tooth Notes and Watches: Assessment & Plan Allergies:No Known Allergies (updated 12/22/2019) Name Value Range Interpretation Code Description Data Celeste rce(s) Supporting Document(s) ID Date Data Source [id number] 12/01/2019 02:11:00 PM EST [facility] Name Value Range Interpretation Code Description Data Celeste rce(s) Supporting Document(s) Buprenorphine+Nor QL,Urine . Very abnormal (appli es to non-numeric units [facility] Confirmation performed by Mass Spectrome try Buprenorphine QL,Ur Confirm . Very abnormal (appl ies to non-numeric units [facility] Buprenorphine Qnt,Ur Confirm 68 ng/mL Cutoff=10 Nor mal (applies to non-numeric results) [facility] Norbuprenorphine QL,Ur Cfm . Very abnormal (appli es to non-numeric units [facility] Norbuprenorphine Qnt,Ur Cfm 204 ng/mL Cutoff=10 Norm al (applies to non-numeric results) [facility] Performed at: [facility] [address] [place] [address] [id number] Tractor Expert: Carmen Dodd MD, Phone: [phone] ID Date Data Source [id number] 11/23/2019 01:03:00 PM EST [facility] Name Value Range Interpretation Code Description Data Celeste rce(s) Supporting Document(s) Opiate Screen,Urine Negative Normal (applies to non-nume gaye results) [facility] Amphetamine Screen,Urine Negative Normal (applies to non -numeric results) [facility] Benzodiazepines Scrn,Ur result Negative N ormal (applies to non-numeric results) [facility] Cocaine Screen,Urine Negative Normal (applies to non-num dread results) [facility] Methadone Screen,Urine Negative Normal (applies to non-n umeric results) [facility] Cannabinoid Screen, Ur Negative Normal (applies to non-n umeric results) [facility] Therapeutic Drug Ranges for Emergency an d Rehabilitation Threshold Levels (ng/mL) Cocaine 300 Opiates 300 Cannabinoids 50 Barbiturates 200 Benzodiazepine 200 Methadone 300 Amphetamines 1000 Emergency toxicol ogy analytes exceeding the therapeutic threshold levels are positive. The confirmation of all positive drug levels may be confirmed at the request of the attending physician. Results are to be used for medical treatment purposes only. ID Date Data Source [id number] 11/23/2019 12:58:00 PM [facility] Name Value Range Interpretation Code Description Data Celeste rce(s) Supporting Document(s) Bupren Scrn,Ur wRfx LCI SO res Negative Mnceil [facility] This specimen will be [facility] for confirmation of positive result. ID Date Data Source [id number] 11/19/2019 03:33:00 PM EST [facility] Name Value Range Interpretation Code Description Data Celeste rce(s) Supporting Document(s) Hepatitis A Ab,IgM result Negative Normal (applies to no n-numeric results) [facility] Result does not exclude the possibility of exposure to hepatitis A virus. Antibody level during early infection stage may be below the limit of detection of the assay. Test Performed by: [address] [address] Tractor Expert: Serafin Lebron M.D. Ph.D.; CLIA# [id number] ID Date Data Source [id number] 11/18/2019 12:45:00 PM EST [facility] Name Value Range Interpretation Code Description Data Celeste rce(s) Supporting Document(s) Sodium 136 mmol/L 137-145 Below low normal [facility] Potassium 3.5-5.1 Normal (applies to non-numeric resul ts) [facility] Chloride 100 mmol/L 98-112 Normal (applies to non-numeric resul ts) [facility] Carbon Dioxide CO2 22.0-33.0 Normal (applies to non-numer ic results) [facility] Anion Gap 4.0-11.0 Normal (applies to non-numeric resul ts) [facility] BUN 19 mg/dL 9-20 Normal (applies to non-numeric resul ts) [facility] Creatinine 0.80-1.50 Normal (applies to non-numeric resul ts) [facility] GFR >60 Normal (applies to non-numeric results) [facility] Result based on MDRD formula. Glucose Level 111 mg/dL 74-99 Above high normal [facility] The reference range is only applicable w hen fasting. Calcium-Uncorrected 8.4-10.2 Normal (applies to non-nume gaye results) [facility] Corrected Calcium 8.4-10.2 Normal (applies to non-numeri c results) [facility] Bilirubin,Total 0.2-1.3 Normal (applies to non-numeric results) [facility] Bilirubin,Direct 0.0-0.3 Normal (applies to non-numeric results) [facility] SGOT(AST) 25 U/L 17-59 Normal (applies to non-numeric resul ts) [facility] SGPT(ALT) 35 U/L 21-72 Normal (applies to non-numeric resul ts) [facility] Alkaline Phosphatase 59 U/L 38-126 Normal (applies to non-num dread results) [facility] can increase Alkaline Phosp le vels up to 2 times the normal adult value. Normal values for children and adolescents are 2 to 3 times the normal adult value. CPK 88 U/L 39-308 Normal (applies to non-numeric resul ts) [facility] Total Protein 6.3-8.2 Normal (applies to non-numeric re sults) [facility] Albumin 3.5-5.0 Normal (applies to non-numeric resul ts) [facility] Thyroid Stimulate Hormone TSH 0.358-3.740 No rmal (applies to non-numeric results) [facility] ID Date Data Source [id number] 11/18/2019 12:46:00 PM [facility] Name Value Range Interpretation Code Description Data Celeste rce(s) Supporting Document(s) Magnesium 1.80-2.40 Above high normal [facility] ID Date Data Source [id number] 11/18/2019 12:46:00 PM [facility] Name Value Range Interpretation Code Description Data Celeste rce(s) Supporting Document(s) C-Reactive Protein,Wide Range <3.00 Normal (applies t o non-numeric results) [facility] ID Date Data Source [id number] 11/18/2019 12:40:00 PM [facility] Name Value Range Interpretation Code Description Data Celeste rce(s) Supporting Document(s) Vitamin D,Total (25OH) 30.0-100.[address] [facility] Reference Range: <10 ng/mL: Deficien t 10-30 ng/mL: Insufficient 30-100 ng/mL: Sufficient >100 ng/mL: Toxicity possible ID Date Data Source [id number] 11/18/2019 12:06:00 PM [facility] Name Value Range Interpretation Code Description Data Celeste rce(s) Supporting Document(s) White Blood Count 4.8-10.8 Normal (applies to non-numeri c results) [facility] Red Blood Count 4.35-6.08 Normal (applies to non-numeric results) [facility] Hemoglobin 13.0-17.5 Normal (applies to non-numeric resul ts) [facility] Hematocrit 37.7-51.0 Normal (applies to non-numeric resul ts) [facility] Mean Corpuscular Volume 80-94 Normal (applies to non- numeric results) [facility] Mean Corpuscular Hemoglobin 27.0-33.0 Normal (appli es to non-numeric results) [facility] Mean Corpuscular HGB Conc 32.0-36.0 Normal (applies to no n-numeric results) [facility] Red Cell Distribution Width 11.5-14.5 Normal (appli es to non-numeric results) [facility] Platelet Count 259 X10 3/uL 130-450 Normal (applies to non-numeric results) [facility] Mean Platelet Volume 9.6-13.1 Normal (applies to non-num dread results) [facility] Imm Grans% (AUTO) 0.0-2.0 Normal (applies to non-numeri c results) [facility] Neutrophils % (AUTO) 43.0-75.0 Normal (applies to non-num dread results) [facility] Lymphocytes % (AUTO) 20.5-45.5 Normal (applies to non-num dread results) [facility] Monocytes % (AUTO) 5.5-11.7 Normal (applies to non-numer ic results) [facility] Eosinophils % (AUTO) 0.7-4.6 Normal (applies to non-num dread results) [facility] Basophils % (AUTO) 0.2-1.2 Normal (applies to non-numer ic results) [facility] Imm Grans# (AUTO) 0.00-0.50 Normal (applies to non-numeri c results) [facility] Neutrophils # (AUTO) 1.90-7.00 Normal (applies to non-num dread results) [facility] Lymphocytes # (AUTO) 1.30-3.10 Normal (applies to non-num dread results) [facility] Monocytes # (AUTO) 0.40-0.70 Above high normal [facility] Eosinophils# (AUTO) 0.00-0.30 Normal (applies to non-nume gaye results) [facility] Basophils # (AUTO) 0.00-0.10 Normal (applies to non-numer ic results) [facility] ID Date Data Source [id number] 11/17/2019 07:17:00 PM EST [facility] Name Value Range Interpretation Code Description Data Celeste rce(s) Supporting Document(s) Opiate Screen,Urine Negative Normal (applies to non-nume gaye results) [facility] Amphetamine Screen,Urine Negative Normal (applies to non -numeric results) [facility] Benzodiazepines Scrn,Ur result Negative N ormal (applies to non-numeric results) [facility] Cocaine Screen,Urine Negative Normal (applies to non-num dread results) [facility] Methadone Screen,Urine Negative Normal (applies to non-n umeric results) [facility] Cannabinoid Screen, Ur Negative Normal (applies to non-n umeric results) [facility] Therapeutic Drug Ranges for Emergency an d Rehabilitation Threshold Levels (ng/mL) Cocaine 300 Opiates 300 Cannabinoids 50 Barbiturates 200 Benzodiazepine 200 Methadone 300 Amphetamines 1000 Emergency toxicol ogy analytes exceeding the therapeutic threshold levels are positive. The confirmation of all positive drug levels may be confirmed at the request of the attending physician. Results are to be used for medical treatment purposes only. ID Date Data Source [id number] 11/17/2019 07:09:00 PM EST [facility] Name Value Range Interpretation Code Description Data Celeste rce(s) Supporting Document(s) Color,Urine Yellow Normal (applies to non-numeric resu lts) [facility] Clarity,Urine Clear [facility] ospital Specific Hendricks,Urine 1.001-1.030 Normal (applies to non- numeric results) [facility] PH,Urine 5.0-8.0 [facility] Protein,Urine Negative Normal (applies to non-numeric re sults) [facility] Glucose,Urine (UA) Negative Normal (applies to non-numer ic results) [facility] Ketones,Urine Negative Normal (applies to non-numeric re sults) [facility] Blood,Urine Negative Normal (applies to non-numeric resu lts) [facility] Bilirubin,Urine Negative Normal (applies to non-numeric results) [facility] Urobilinogen,Urine Norm 0.2-1 Normal (applies to non-numer ic results) [facility] Leukocyte Esterase,Urine Negative Normal (applies to non -numeric results) [facility] Nitrite,Urine Negative Normal (applies to non-numeric re sults) [facility] ID Date Data Source [id number] 11/16/2019 06:54:00 AM EST [facility] Name Value Range Interpretation Code Description Data Celeste rce(s) Supporting Document(s) Sodium 142 mmol/L 136-145 Normal (applies to non-numeric resul ts) [facility] Potassium 3.5-5.1 Normal (applies to non-numeric resul ts) [facility] Chloride 102 mmol/L 98-107 Normal (applies to non-numeric resul ts) [facility] Carbon Dioxide CO2 21-32 Above high normal [facility] Anion Gap 5.0-16.0 Normal (applies to non-numeric resul ts) [facility] BUN 12 mg/dL 7-18 Normal (applies to non-numeric results) [facility] Creatinine,Serum 0.8-1.5 Normal (applies to non-numeric results) [facility] GFR >60 Normal (applies to non-numeric results) [facility] Glucose Level 98 mg/dL 60-99 Normal (applies to non-numeric re sults) [facility] Reference range is only applicable when patient is fasting Note the following drug interference: Sulfasalazine Sulfapyridine Can see falsely depressed Can see falsely elevated result with up to 17% results with up to 11% decrease in measurement increase in measurement Recommend patients be collected for this test prior to administration of either drug. Calcium 8.5-10.1 Normal (applies to non-numeric resul ts) [facility] Bilirubin,Total 0.1-1.9 Normal (applies to non-numeric results) [facility] SGOT(AST) 8 U/L 15-37 Below low normal [facility] edison Note the following drug interference: Sulfasalazine Sulfapyridine Can see falsely depressed Can see falsely elevated result with up to 10% results with up to 10% decrease in measurement increase in measurement Recommend patients be collected for this test prior to administration of either drug. SGPT(ALT) 23 U/L 12-78 Normal (applies to non-numeric resul ts) [facility] Note the following drug interference: Sulfasalazine Sulfapyridine Can see falsely depressed Can see falsely elevated result with up to 29% results with up to 10% decrease in measurement increase in measurement Recommend patients be collected for this test prior to administration of either drug. Alkaline Phosphatase 70 U/L 38-126 Normal (applies to non-num dread results) [facility] can increase Alkaline Phosp le vels up to 2 times the normal adult value. Normal values for children and adolescents are 2 to 3 times the normal adult value. Total Protein 6.0-8.2 Normal (applies to non-numeric re sults) [facility] Albumin Level 3.4-5.0 Below low normal [facility] ID Date Data Source [id number] 11/18/2019 02:42:00 PM [facility] Name Value Range Interpretation Code Description Data Celeste rce(s) Supporting Document(s) HIV Screen result Nonreactive Normal (applies to non-numer ic results) [facility] Test Performed By: [facility] [address] [place] [id number] Director: Lacho Henriquez MD ID Date Data Source [id number] 11/18/2019 02:40:00 PM [facility] Name Value Range Interpretation Code Description Data Celeste rce(s) Supporting Document(s) HIV 1/2 Ab p24 Ag Screen Nonreactive Normal (applies to non-numeric results) [facility] Test Performed By: [facility] [address] [place] [id number] Director: Lacho Henriquez MD ID Date Data Source [id number] 11/15/2019 02:48:00 PM [facility] Name Value Range Interpretation Code Description Data Celeste rce(s) Supporting Document(s) Sodium 141 mmol/L 136-145 Normal (applies to non-numeric resul ts) [facility] Potassium 3.5-5.1 Normal (applies to non-numeric resul ts) [facility] Chloride 104 mmol/L 98-107 Normal (applies to non-numeric resul ts) [facility] Carbon Dioxide CO2 21-32 Above high normal [facility] Anion Gap 5.0-16.0 Below low normal [facility] BUN 10 mg/dL 7-18 Normal (applies to non-numeric results) [facility] Creatinine,Serum 0.8-1.5 Normal (applies to non-numeric results) [facility] GFR >60 Normal (applies to non-numeric results) [facility] Glucose Level 109 mg/dL 60-99 Above high normal [facility] Reference range is only applicable when patient is fasting Note the following drug interference: Sulfasalazine Sulfapyridine Can see falsely depressed Can see falsely elevated result with up to 17% results with up to 11% decrease in measurement increase in measurement Recommend patients be collected for this test prior to administration of either drug. Calcium 8.5-10.1 Normal (applies to non-numeric resul ts) [facility] Bilirubin,Total 0.1-1.9 Normal (applies to non-numeric results) [facility] SGOT(AST) 11 U/L 15-37 Below low normal [facility] Note the following drug interference: Sulfasalazine Sulfapyridine Can see falsely depressed Can see falsely elevated result with up to 10% results with up to 10% decrease in measurement increase in measurement Recommend patients be collected for this test prior to administration of either drug. SGPT(ALT) 26 U/L 12-78 Normal (applies to non-numeric resul ts) [facility] Note the following drug interference: Sulfasalazine Sulfapyridine Can see falsely depressed Can see falsely elevated result with up to 29% results with up to 10% decrease in measurement increase in measurement Recommend patients be collected for this test prior to administration of either drug. Alkaline Phosphatase 62 U/L 38-126 Normal (applies to non-num dread results) [facility] can increase Alkaline Phosp le vels up to 2 times the normal adult value. Normal values for children and adolescents are 2 to 3 times the normal adult value. Total Protein 6.0-8.2 Normal (applies to non-numeric re sults) [facility] Albumin Level 3.4-5.0 Normal (applies to non-numeric re sults) [facility] ID Date Data Source [id number] 11/13/2019 07:47:00 PM [facility] Name: AFRICA GASPAR Med Rec #: [id number] : 1985 Age/Sex: 34M Date of Service: 11/13/19 PHYSICIAN CHART Physician Documentation [facility] Name: Africa Gaspar Age: 34 yrs Sex: Male : 1985 Arrival Date: 11/13/2019 Time: 19:47 Bed H2 Private MD: Tayo Schaefer ED Physician Marciano Garcia HPI: 11/13 20:29 This 34 yrs old Male presents to ER via Walk-In rc3 with complaints of Overdose. 20:29 Patient is a 34-year-old male with history of injection 3 cocaine use. We have had previous ER visits for complications of cocaine abuse and there is one previous rehab note from June of this year. The patient states he injected about a gram of cocaine into his left AC at around 7 PM. He denies any other concomitant drug use he denies any alcohol use. He states that short time later he began to feel dizzy with palpitations, chest pain and shortness of breath. He states symptoms are beginning to improve at this time. He states while he was walking around town after injecting cocaine his symptoms are rather severe which scared him and prompted him to come to the emergency department. He denies any other significant past medical histo ry. He is not on any medications he denies allergies to medications.. 20:31 He denies delusions, hallucinations and intent at [facility] self-harm.. Historical: - Allergies: No known drug Allergies; - Home Meds: 1. None - PMHx: DRUG ABUSE; - PSHx: dental surgery; - Med Reconciliation:: Green Alert: The patient's med list is complete to the best of the nurse's/provider's knowledge. Medications reviewed, verbally from patient/family. - Immunization history: All immunizations are up to date. - Advance directive: There is no existing advanced directive. Information offered. - Social History: Smoking status (Tobacco): Patient states is a heavy tobacco smoker (>10 cigarettes a day). Preferred Language: Luxembourger. ROS: 20:31 Constitutional: Negative for fever. Head Negative for Pain. rc3 ENT: Negative for acute changes. Eyes: Negative for acute changes, blurry vision, Double vision vision loss, visual disturbance. Neck: Negative for pain with movement, pain at rest, stiffness. Cardiovascular: Positive for chest pain, palpitations, Chest Pressure Negative for edema, orthopnea, paroxysmal nocturnal dyspne a. Respiratory: Positive for shortness of breath, Negative for cough, dyspnea on exertion, wheezing. Abdomen/GI: Negative for abdominal pain, nausea, vomiting, diarrhea. Back: Negative for pain at rest, pain with movement. MS/extremity: Negative for acute changes, injury or acute deformity, pain, paresthesias, swelling, tenderness, tingling. Skin: Negative for abrasions, abscesses, cellulitis, laceration(s). Neuro: Positive for dizziness, Negative for altered mental status, diplopia, gait disturbance, headache, loss of consciousness, numbness, seizure activity, syncope, near syncope, tingling, weakness. Psych: Positive for drug dependence, Negative for anxiety, depression, alcohol dependence, auditory hallucinations, visual hallucinations, homicidal ideation, insomnia, suicide gesture, suicidal ideation. Exam: 20:32 Constitutional: The patient appears to have no acute rc3 distress, appears alert, appears to be awake, appears comfortable, is not diaphoretic, does not appear to be toxic, appears well developed, is well groomed, well hydrated, appears well nourished. 20:32 Head/face: Normocephalic, atraumatic. 20:32 Eyes: Periorbital structures: appear normal, Pupils: equal, round, and reactive to light and accomodation, dilated, Extraocular movements: intact throughout, Conjunctiva: normal, Sclera: no appreciated abnormality, Lids and lashes: appear normal. 20:32 ENT: External ear(s): are unremarkable, Ear canal(s): are normal, TM's: are normal, Nose: is normal, Mouth: is normal, Posterior pharynx: is normal. 20:32 Neck: Trachea: is midline with no obvious abnormalities, ROM/movement: is normal. 20:32 Chest/axilla: Inspection: normal, Palpation: is normal. 20:32 Cardiovascular: Rate: tachycardic, Rhythm: regular, Pulses: Pulses are 2+ in right radial artery and left radial artery. Heart sounds: normal, Edema: is not appreciated, JVD: is not appreciated. 20:32 Respiratory: the patient does not display signs of respiratory distress, Respirations: normal, Breath sounds: are normal. 20:32 Abdomen/GI: Inspection: abdomen appears normal, Bowel sounds: active, No bruit, Palpation: abdomen is soft and non-tender, in all quadrants, involuntary guarding, is not appreciated, voluntary guarding, is not appreciated, rebound tenderness, is not appreciated. 20:32 : CVA tenderness, is absent. 20:32 Musculoskeletal/extremity: Extremities: all appear grossly normal, with no appreciated pain with palpation, ROM: intact in all extremities, full active range of motion, in all extremities, Circulation is intact in all extremities. Perfusion: the patient is normally perfused throughout, pink, warm, noted to have brisk capillary refill, Calves: are non- tender, have equal circumference. 20:32 Skin: Appearance: Color: normal in color, pink, Temperature: normal temperature, Moisture: normal moisture, petechiae, not noted, ecchymosis, not noted, flushing, not noted, diaphoresis is not appreciated. 20:32 Neuro: Orientation: is normal, Mentation: is normal, Cranial nerves: No gross deficits, Motor: moves all fours. 20:32 Psych: Behavior/mood is pleasant, cooperative, Affect is calm, Oriented to person, place, time, Patient has no thoughts/intents to harm self or others. Judgement / Insight is normal. Delusions/hallucinations are not present. 21:30 Skin: Skin puncture left AC without cellulitis or abscess.. rc3 11/14 00:05 Neuro: Cerebellar function: rc3 Vital Signs: 11/13 19:53 BP 151 / 92; Pulse 124; Resp 22; Temp 98.6(TE); Pulse Ox tlf 99% on R/A; Weight 76.2 kg; Height 5 ft. 9 in. (175.26 cm); Pain 6/10; 20:47 BP 123 / 82; Pulse 94; Resp 12; Pulse Ox 97% on R/A; Pain rcs 6/10; 21:19 BP 117 / 74; Pulse 104; Resp 20; Temp 98.4(O); Pulse Ox 96% rcs on R/A; Pain 4/10; 21:49 BP 111 / 71; Pulse 87; Resp 20; Pulse Ox 96% on R/A; Pain rcs 3/10; 22:43 BP 115 / 74; Pulse 77; Resp 16; Temp 97.4; Pulse Ox 100% ; bh 19:53 Body Mass Index 24.81 (76.20 kg, 175.26 cm) tlf MDM: 19:52 Patient medically screened. 3 20:34 ECG: The ECG on this patient demonstrates Other Normal [facility] sinus rhythm, rate 112, normal axis, normal intervals, no ST elevations, no significant ST depressions, flattening the ST segment inferiorly and laterally, T wave inversion in lead III, overall EKG is similar to previous dated September 23, 2019. 20:46 ED course: CXR read: No acute disease. X-ray reviewed by 3 me.. 22:25 ED course: Patient is hemodynamic stable okay with 3 observation admission. Still complain of feeling somewhat jittery and anxious. He overall appears more calm. Will give a additional small dose of IV lorazepam.. 11/14 00:05 Data reviewed: vital signs, nurses notes, old medical 3 records, lab test result(s), EKG, radiologic studies. Counseling: I had a detailed discussion with the patient and/or guardian regarding: lab results, radiology results, diagnosis, the need for further work-up and treatment in the hospital. 11/13 19:54 Order name: B-Type Natriuretic Peptide - BNP; Complete rc3 Time: 2111/13 21:30 Interpretation: BNP 69. rc3 11/13 19:54 Order name: Cbc With Auto Differential; Complete Time: 3 11/13 21:29 Interpretation: WBC 11.5; HGB 15.8; HCT 43.7; PLT 256; rc3 Neut% (AUTO) 78.0. 11/13 19:54 Order name: Comprehensive Metabolic Prof.; Complete Time: rc3 :11/13 21:29 Interpretation: NA 141; K 4.0; CL 108; CO2 26.0; GAP 7.0; rc3 BUN 18; CREAT 1.02; Glom Filtration 84; GLU 105; CA 9.6; Corrected CA 9.2; T Bili 0.6; SGOT(AST) 18; SGPT(ALT) 29; ALK PHOS 48; TP 8.2; ALB 4.5. 11/13 19:54 Order name: Lipase; Complete Time: 21:29 [facility] 11/13 21:29 Interpretation: LIP 54. [facility] 11/13 19:54 Order name: Partial Thromboplastin Time; Complete Time: 3 21:29 11/13 21:30 Interpretation: PTT 29.2. [facility] 11/13 19:54 Order name: Prothrombin Time; Complete Time: 21:29 [facility] 11/13 21:29 Interpretation: PT 13.8; INR 1.20. [facility] 11/13 19:54 Order name: Troponin I; Complete Time: 21:29 [facility] 11/13 21:30 Interpretation: TROP I < 0.045. [facility] 11/13 19:54 Order name: CPK; Complete Time: 21:29 [facility] 11/13 21:30 Interpretation: CPK 178. [facility] 11/13 19:54 Order name: Acetaminophen Level; Complete Time: 21:29 [facility] 11/13 21:30 Interpretation: Aceta < 2.0. [facility] 11/13 19:54 Order name: ETOH; Complete Time: 21:29 [facility] 11/13 21:30 Interpretation: ETOH < 3.0. [facility] 11/13 19:54 Order name: Salicylate; Complete Time: 21:29 [facility] 11/13 21:30 Interpretation: GWENDOLYN 2.6. [facility] 11/13 19:54 Order name: UDS; Complete Time: 00:05 [facility] 11/14 00:05 Interpretation: U Opiate Screen Negative; U Janine Screen rc3 Negative; U Monroe Screen Negative; Ur Lolis Screen Positive; Ur Cannab Scr Positive. 11/13 19:54 Order name: UA.; Complete Time: 00:05 [facility] 11/14 00:05 Interpretation: Ur Color Corinna; Ur Clarity Clear; Ur Spec rc3 gravity 1.030; Ur PH 5.5; Ur Protein 1+ 30; Ur Glucose Negative; Ur Ketones 15; Ur Blood Small; Ur Bilirubin Small; Ur Urobilinogen 1.0; Ur Leuk Est Negative; Ur Nitrite Negative. 11/13 19:57 Order name: Blood Culture - Venous 3 11/13 19:54 Order name: CXR Portable (Chest Pain) [facility] 11/13 19:54 Order name: Emergency Room EKG Order - Use EKG Work-Up 3 /Quick Select; Complete Time: 20:04 11/13 19:54 Order name: Cardiology EKG Interpretation - Choose Reason [facility] for Test 11/13 19:54 Order name: Iv Saline Lock; Complete Time: 21:05 3 11/13 19:54 Order name: Place Patient On Monitor; Complete Time: 21:55 3 11/13 19:54 Order name: Collect Urine - Clean Catch; Complete Time: rc3 21:52 11/13 19:54 Order name: Collect Urine - Clean Catch; Complete Time: rc3 21:52 11/13 19:57 Order name: Lactic Acid; Complete Time: 21:29 3 11/13 21:30 Interpretation: Lactic 1.6. 3 11/13 20:14 Order name: Oral Temp; Complete Time: 21:06 [facility] 11/13 21:43 Order name: Assign to Observation; Complete Time: 21:54 EDMS Dispensed Medications: 11/13 21:05 Drug: Aspirin 324 mg [aspirin 81 mg chewable tablet (4 rcs tabs)] Route: PO; 21:06 Drug: LORazepam 1 mg [lorazepam 2 mg/mL injection solution rcs (0.5 mL)] Route: IVP; Site: left antecubital; 21:21 Follow up: Response: Marked relief of symptoms; No adverse rcs reaction; No adverse reaction, 2nd 1 mg IV Ativan gen per orders 21:59 Follow up: Response: Denies Nausea; No adverse reaction; No rcs change in condition 21:12 Drug: NS 0.9% 1000 ml [sodium chloride 0.9 % intravenous rcs solution] Route: IV; Rate: 999 mL/hr; Site: left antecubital; 22:06 Follow up: Response: No adverse reaction; No change in rcs condition; IV Status: Completed infusion 21:12 Drug: NS 0.9% 1000 ml [sodium chloride 0.9 % intravenous rcs solution] Route: IV; Rate: 999 mL/hr; Site: left antecubital; 22:05 Follow up: Response: No adverse reaction; No change in rcs condition; IV Status: Completed infusion 22:35 Drug: LORazepam 0.5 mg [lorazepam 2 mg/mL injection rcs solution (0.25 mL)] Route: IVP; Site: anterior chest - right; 22:56 Follow up: Response: No adverse reaction; No change in rcs condition Disposition Summary: 11/13/19 21:32 Ho spitalization Ordered Hospitalization Status: Observation 3 Provider: Serafin Muñoz 3 Condition: Stable 3 Problem: an acute exacerbation rc3 Symptoms: have worsened 3 Bed/Room Type: Observation 3 Location: Observation(11/13/19 21:50) [facility] Room Assignment: [id number](11/13/19 21:50) 6 Diagnosis - Chest Pain, Other rc3 - Cocaine abuse 3 Additional Information - Patient Status Observation. 3 Forms: - Medication Reconciliation 3 - SBAR 3 Signatures: Dispatcher [employer] Marciano Deluca DO [facility]3 Belen Hernandez RN RN [facility] Cristian Multani Kirsten, MENG [facility]6 Steve Henriquez RN RN rcs Corrections: (The following items were deleted from the chart) 21:50 21:32 Med-Surg 2 3 km6 21:50 21:32 rc3 km6 21:53 19:54 Straight Cath+SONIDO ordered. 3 rcs Name Value Range Interpretation Code Description Data Celeste rce(s) Supporting Document(s) ID Date Data Source [id number] 11/13/2019 07:47:00 PM [facility] Name: AFRICA GASPAR Med Rec #: [id number] : 1985 Age/Sex: 34M Date of Service: 11/13/19 DISPOSITION SUMMARY Discharge Summary [facility] Name:Af[place] Gaspar Emergency Department Age:34 yrs Sex:Male :1985 Arrival:11/13/2019 19:47 Departure Date11/13/2019 Departure Time23:04 Private MD:Tayo Schaefer MD Outcome: Hospitalize Location: Observation Condition: Stable Chief Complaint: Overdose Diagnosis: Chest Pain, Other, Cocaine abuse - IV Prescriptions: Custom Notes: Attending Physician: Marciano Garcia DO Private MD: Tayo Schaefer MD Mid Level Provider: Hospitalizing Provider: Serafin Muñoz RNP Orders: B-Type Natriuretic Peptide - BNP, Cbc With Auto Differential, Comprehensive Metabolic Prof., Lipase, Partial Thromboplastin Time, Prothrombin Time, Troponin I, CPK, Acetaminophen Level, ETOH, Salicylate, UDS, UA., Blood Culture - Venous, CXR Portable (Chest Pain), Aspirin, Emergency Room EKG Order - Use EKG Work-Up /Quick Select, Cardiology EKG Interpretation - Choose Reason for Test, Iv Saline Lock, Place Patient On Monitor, NS 0.9%, Collect Urine - Clean Catch, Collect Urine - Clean Catch, Straight Cath: prn cannot provide, Lactic Acid, LORazepam, Oral Temp, NS 0.9%, Assign to Observation, LORazepam Discharge Instruction: Medication Reconciliation, SBAR, Fax Visit Summary for Tayo Schaefer MD Name Value Range Interpretation Code Description Data Celeste rce(s) Supporting Document(s) ID Date Data Source [id number] 11/13/2019 07:47:00 PM [facility] Name: AFRICA GASPAR Med Rec #: [id number] : 1985 Age/Sex: 34M Date of Service: 11/13/19 NURSE CHART Nurse's Notes [facility] Name: Africa Gaspar Age: 34 yrs Sex: Male : 1985 Arrival Date: 11/13/2019 Time: 19:47 Bed H2 Private MD: Tayo Schaefer Diagnosis: Chest Pain, Other;Cocaine abuse-IV Presentation: 11/13 19:51 Transition of care: jake rich was not received from another f setting of care. Presenting complaint: Patient states - "I overdosed on cocaine about 1 hour ago". Pt states he did "1 gram, in 1 shot". Patient denies any travel outside the [place] in the last 30 days. 19:51 Method Of Arrival: Walk-In tlf 19:51 Acuity: Emergent - 2 tlf Triage Assessment: 19:52 SEPSIS SCREEN: A Confirmed or Suspected Infection is tlf Unknown, their temperature is not <96.8 or >100.9, their heart rate is >90, their RR rate is >20, it is unknown if their WBC is <4 or >12, the patient does not have new or unexplained altered mental status. The patient appears to have some mild discomfort, The patient is anxious, cooperative. The patient complains of pain in mid-sternal area. The patient states the pain began 1 hour ago, The quality of the pain is described as pressure, "tightness". Cardiovascular: Patient reports Diaphoresis, palpitations, shortness of breath, Chest pain quality is pressure, is located in substernal area began 1 hour prior to arrival. Respiratory: Airway is patent. Respiratory effort is even, unlabored, Patient reports shortness of breath at rest on exertion. 19:53 Cardiovascular: Patient reports. tlf Historical: - Allergies: No known drug Allergies; - Home Meds: 1. None - PMHx: DRUG ABUSE; - PSHx: dental surgery; - Med Reconciliation:: Green Alert: The patient's med list is complete to the best of the nurse's/provider's knowledge. Medications reviewed, verbally from patient/family. - Immunization history: All immunizations are up to date. - Advance directive: There is no existing advanced directive. Information offered. - Social History: Smoking status (Tobacco): Patient states is a heavy tobacco smoker (>10 cigarettes a day). Preferred Language: Luxembourger. Screenin:16 AUDIT 1. How often do you have a drink containing alcohol? rcs 4 or more times a week (4 points). Drug Abuse Screening Test: 1. Have you used drugs other than those required for medical reasons? Yes (1 point) 4. Have you ever had blackouts or flashbacks as a result of drug use? Yes (1 point). Abuse screen: Denies threats or abuse. Nutritional screening: No deficits noted. Tuberculosis screening: No symptoms or risk factors identified. Never had TB. Exposure risk/Travel Screening: None identified. The patient has IV access (20 points). The patient is hooked up to a monitor (20 points). The patient is a MODERATE FALL RISK (Wasserman Scale=25-45 pts). Side rails are up, patient is being reassessed frequently. Assessment: 21:13 See Triage Assessment. The patient appears to have some rcs mild discomfort, slender, well nourished, well groomed, The patient is anxious, behaving appropriately according to age, cooperative, pleasant, The patient reports that he/she has been tremors. Neuro: No Neuro Deficit is noted. pt reports injecting approx 1 gram of "pure" cocaine intravenously at 1900 hrs. Cardiovascular: No deficits noted. Respiratory: No deficits noted. GI: No deficits noted. Vital Signs: 19:53 BP 151 / 92; Pulse 124; Resp 22; Temp 98.6(TE); Pulse Ox tlf 99% on R/A; Weight 76.2 kg; Height 5 ft. 9 in. (175.26 cm); Pain 6/10; 20:47 BP 123 / 82; Pulse 94; Resp 12; Pulse Ox 97% on R/A; Pain rcs 6/10; 21:19 BP 117 / 74; Pulse 104; Resp 20; Temp 98.4(O); Pulse Ox 96% rcs on R/A; Pain 4/10; 21:49 BP 111 / 71; Pulse 87; Resp 20; Pulse Ox 96% on R/A; Pain rcs 3/10; 22:43 BP 115 / 74; Pulse 77; Resp 16; Temp 97.4; Pulse Ox 100% ; bh 19:53 Body Mass Index 24.81 (76.20 kg, 175.26 cm) [facility] ED Course: 19:48 Patient arrived in ED. adp 19:49 Saud Cooper RN is Primary Nurse. tlf 19:51 Tayo Schaefer MD is Private Physician. tlf 19:52 Triage completed. tlf 19:52 Marciano Garcia DO is Attending Physician. rc3 19:54 Arm band placed on right wrist. Patient placed in exam room [facility] Bed in low position. Call light in reach. Side rails up X 1. 20:03 An EKG was obtained and reviewed by Marciano Garcia DO. enzo 20:04 Cardiology EKG Interpretation - Choose Reason for Test Sent.enzo 20:10 Primary Nurse role handed off by Saud Cooper RN skb 20:12 Steve Henriquez, DANYEL is Primary Nurse. skb 21:18 Appears restless. Awaiting lab results. rcs 21:18 cardiac monitor on. Pulse on is on. NIBP on. rcs 21:18 No procedures ordered. Inserted saline lock: 18 gauge in rcs left antecubital area. 21:32 Serafin Muñoz RNP is Hospitalizing Provider. rc3 22:05 Radiology: None performed. rcs Administered Medications: 21:05 Drug: Aspirin 324 mg [aspirin 81 mg chewable tablet (4 rcs tabs)] Route: PO; 21:06 Drug: LORazepa m 1 mg [lorazepam 2 mg/mL injection solution rcs (0.5 mL)] Route: IVP; Site: left antecubital; 21:21 Follow up: Response: Marked relief of symptoms; No adverse rcs reaction; No adverse reaction, 2nd 1 mg IV Ativan gen per orders 21:59 Follow up: Response: Denies Nausea; No adverse reaction; No rcs change in condition 21:12 Drug: NS 0.9% 1000 ml [sodium chloride 0.9 % intravenous rcs solution] Route: IV; Rate: 999 mL/hr; Site: left antecubital; 22:06 Follow up: Response: No adverse reaction; No change in rcs condition; IV Status: Completed infusion 21:12 Drug: NS 0.9% 1000 ml [sodium chloride 0.9 % intravenous rcs solution] Route: IV; Rate: 999 mL/hr; Site: left antecubital; 22:05 Follow up: Response: No adverse reaction; No change in rcs condition; IV Status: Completed infusion 22:35 Drug: LORazepam 0.5 mg [lorazepam 2 mg/mL injection rcs solution (0.25 mL)] Route: IVP; Site: anterior chest - right; 22:56 Follow up: Response: No adverse reaction; No change in rcs condition Outcome: 21:32 Decision to Hospitalize by Provider. rc3 22:02 Patient verbalized understanding of disposition rcs instructions. Patient has no functional deficits. Patient awake and alert. Oriented to person, place and time. 22:02 Patient admitted to the observation unit. 22:02 Condition: good Condition: stable Condition: improved 22:02 No prescriptions given. 22:02 Report given to Pushpa on OBS unit. 22:03 Vitals are Complete in accordance with Emergency Department rcs Policy. 23:04 Patient left the ED. km6 Signatures: Marciano Garcia DO DO rc3 Belen Hernandez, RN RN Cristian Hoyt Kirsten, NA NA km6 Lety Haines, RN RN Pineda Blankenship NA NA Vero Grace, Steve Early, DANYEL RN neris Name Value Range Interpretation Code Description [facility] Supporting Document(s) ID Date Data Source [id number] 11/16/2019 02:17:00 PM [facility] Name Value Range Interpretation Code Description Data [facility] rce(s) Supporting Document(s) CPK result 137 U/L 39-308 Normal (applies to non-numeric resul ts) [facility] Test Performed By: [facility] [address] [place] [address] Director: Lacho Henriquez MD ID Date Data Source [id number] 11/16/2019 02:17:00 PM [facility] Value Range Interpretation Code Description Data [facility] rce(s) Supporting Document(s) Hepatitis C Virus Ab result Nonreactive Norm al (applies to non-numeric results) [facility] Test Performed By: [place] [address] Director: Lacho Henriquez MD ID Date Data Source [id number] 11/16/2019 02:17:00 PM [facility] Name Value Range Interpretation Code Description Data [facility] rce(s) Supporting Document(s) Hep Bs Ag result T-Test Nonreactive Normal (applies to non -numeric results) [facility] Test Performed By: [place] [address] Director: Lacho Henriquez MD ID Date Data Source [id number] 11/16/2019 02:17:00 PM [facility] Value Range Interpretation Code Description Data [facility] rce(s) Supporting Document(s) Syphilis Serology result Nonreactive Normal (applies to non-numeric results) [facility] Test Performed By: [place] [address] Director: Lacho Henriquez MD ID Date Data Source [id number] 11/16/2019 02:17:00 PM [facility] Value Range Interpretation Code Description Data [facility] rce(s) Supporting Document(s) Chlamydia,Urine result Negative Normal (applies to non-n umeric results) [facility] Test Performed By: [place] [address] Director: Lacho Henriquez MD . GC Urine result Negative Normal (applies to non-numeric results) [facility] Test Performed By: [place] [address] Director: Lacho Henriquez MD . Methodology: Second generation nucleic acid amplification. ID Date Data Source [id number] 11/16/2019 01:55:00 PM EST [facility] Value Range Interpretation Code Description Data [facility] rce(s) Supporting Document(s) Chlamydia,Urine Negative Normal (applies to non-numeric results) [facility] Test Performed By: [place] [address] Director: Lacho Henriquez MD . GC Urine Negative Normal (applies to non-numeric resul ts) [facility] Test Performed By: [place] [address] Director: Lacho Henriquez MD . Methodology: Second generation nucleic acid amplification. ID Date Data Source [id number] 11/15/2019 05:26:00 PM EST [facility] Value Range Interpretation Code Description Data [facility] rce(s) Supporting Document(s) Hep C Ab-T Test Nonreactive Normal (applies to non-numeric results) [facility] Test Performed By: [place] [address] Director: Lacho Henriquez MD ID Date Data Source [id number] 11/15/2019 05:26:00 PM EST [facility] Value Range Interpretation Code Description Data [facility] rce(s) Supporting Document(s) Hep Bs Ag Result T-Test Nonreactive Normal (applies to non -numeric results) [facility] Test Performed By: [place] [address] Director: Lacho Henriquez MD ID Date Data Source [id number] 11/15/2019 05:26:00 PM EST [facility] Value Range Interpretation Code Description Data [facility] rce(s) Supporting Document(s) Syphilis Serology Nonreactive Normal (applies to non-numer ic results) [facility] Test Performed By: [place] [address] Director: Lacho Henriquez MD ID Date Data Source [id number] 11/15/2019 03:40:00 PM EST [facility] Name Value Range Interpretation Code Description Data [facility] rce(s) Supporting Document(s) CPK 137 U/L 39-308 Normal (applies to non-numeric resul ts) [facility] Test [facility]: [facility] [address] [place] [address] Director: Lacho Henriquez MD ID Date Data Source [id number] 11/14/2019 08:04:00 PM [facility] Name Value Range Interpretation Code Description Data [facility] rce(s) Supporting Document(s) Ethanol Less than 10.0 Normal (applies to non-numeric r esults) [facility] ID Date Data Source [id number] 11/14/2019 08:03:00 PM [facility] Name Value Range Interpretation Code Description Data [facility] rce(s) Supporting Document(s) Sodium 140 mmol/L 136-145 Normal (applies to non-numeric resul ts) [facility] Potassium 3.5-5.1 Normal (applies to non-numeric resul ts) [facility] Chloride 103 mmol/L 98-107 Normal (applies to non-numeric resul ts) [facility] Carbon Dioxide CO2 21-32 Normal (applies to non-numer ic results) [facility] Anion Gap 5.0-16.0 Normal (applies to non-numeric resul ts) [facility] BUN 13 mg/dL 7-18 Normal (applies to non-numeric results) [facility] Creatinine,Serum 0.8-1.5 Normal (applies to non-numeric results) [facility] GFR >60 Normal (applies to non-numeric results) [facility] Glucose Level 115 mg/dL 60-99 Above high normal [facility] Reference range is only applicable when patient is fasting Note the following drug interference: Sulfasalazine Sulfapyridine Can see falsely depressed Can see falsely elevated result with up to 17% results with up to 11% decrease in measurement increase in measurement Recommend patients be collected for this test prior to administration of either drug. Calcium 8.5-10.1 Normal (applies to non-numeric resul ts) [facility] Bilirubin,Total 0.1-1.9 Normal (applies to non-numeric results) [facility] SGOT(AST) 11 U/L 15-37 Below low normal [facility] Note the following drug interference: Sulfasalazine Sulfapyridine Can see falsely depressed Can see falsely elevated result with up to 10% results with up to 10% decrease in measurement increase in measurement Recommend patients be collected for this test prior to administration of either drug. SGPT(ALT) 28 U/L 12-78 Normal (applies to non-numeric resul ts) [facility] Note the following drug interference: Sulfasalazine Sulfapyridine Can see falsely depressed Can see falsely elevated result with up to 29% results with up to 10% decrease in measurement increase in measurement Recommend patients be collected for this test prior to administration of either drug. Alkaline Phosphatase 49 U/L 38-126 Normal (applies to non-num dread results) [facility] can increase Alkaline Phosp le vels up to 2 times the normal adult value. Normal values for children and adolescents are 2 to 3 times the normal adult value. Total Protein 6.0-8.2 Normal (applies to non-numeric re sults) [facility] Albumin Level 3.4-5.0 Normal (applies to non-numeric re sults) [facility] ID Date Data Source [id number] 11/14/2019 08:03:00 PM [facility] Name Value Range Interpretation Code Description Data [facility] rce(s) Supporting Document(s) Bilirubin,Direct 0.05-0.20 Normal (applies to non-numeric results) [facility] ID Date Data Source [id number] 11/14/2019 08:03:00 PM [facility] Name Value Range Interpretation Code Description Data [facility] rce(s) Supporting Document(s) Phosphorus 2.5-4.9 Normal (applies to non-numeric resul ts) [facility] ID Date Data Source [id number] 11/14/2019 08:03:00 PM [facility] Name Value Range Interpretation Code Description Data [facility] rce(s) Supporting Document(s) Magnesium 1.8-2.4 Normal (applies to non-numeric resul ts) [facility] ID Date Data Source [id number] 11/14/2019 08:03:00 PM EST [facility] Name Value Range Interpretation Code Description Data [facility] rce(s) Supporting Document(s) Thyroid Stimulate Hormone TSH 0.358-3.74 Below low normal [facility] ID Date Data Source [id number] 11/14/2019 07:53:00 PM EST [facility] Name Value Range Interpretation Code Description Data [facility] rce(s) Supporting Document(s) White Blood Count 3.5-10.5 Normal (applies to non-numeri c results) [facility] Red Blood Count 4.30-5.70 Normal (applies to non-numeric results) [facility] Hemoglobin 13.5-17.5 Normal (applies to non-numeric resul ts) [facility] Hematocrit 38.8-50.0 Normal (applies to non-numeric resul ts) [facility] Mean Corpuscular Volume 81.2-95.1 Normal (applies to non- numeric results) [facility] Mean Corpuscular Hgb 25.6-32.2 Normal (applies to non-num dread results) [facility] Mean Corpuscular Hgb Conc 32.0-36.0 Normal (applies to no n-numeric results) [facility] Red Cell Distribution Width 11.8-15.6 Normal (appli es to non-numeric results) [facility] Platelet Count 203 x10 3/uL 150-450 Normal (applies to non-numeric results) [facility] Mean Platelet Volume 9.4-12.4 Below low normal [facility] Neutrophils% (Auto) 31.0-71.0 Normal (applies to non-nume gaye results) [facility] Lymphocytes% (Auto) 20.0-55.0 Normal (applies to non-nume gaye results) [facility] Monocytes% (Auto) 4.0-12.0 Normal (applies to non-numeri c results) [facility] Eosinophils% (Auto) 1.0-8.0 Below low normal [facility] Basophils% (Auto) 0.0-2.0 Normal (applies to non-numeri c results) [facility] Immature Granulocytes% (Auto) 0.0-2.0 Normal (burke lies to non-numeric results) [facility] Neutrophils# (Auto) 1.50-6.20 Normal (applies to non-nume gaye results) [facility] Lymphocytes# (Auto) 1.20-4.00 Normal (applies to non-nume gaye results) [facility] Monocytes# (Auto) 0.00-0.90 Normal (applies to non-numeri c results) [facility] Eosinophils# (Auto) 0.00-0.50 Normal (applies to non-nume gaye results) [facility] Basophils# (Auto) 0.00-0.20 Normal (applies to non-numeri c results) [facility] Immature Granulocytes# (Auto) 0.00-7.00 No rmal (applies to non-numeric results) [facility] ID Date Data Source [id number] 11/15/2019 03:26:00 AM EST [facility] Name Value Range Interpretation Code Description Data [facility] rce(s) Supporting Document(s) UDS Phencyclidine Screen Negative Normal (applies to non -numeric results) [facility] UDS Benzodiazepines Screen Negative [facility] UDS Cocaine Screen Negative [facility] UDS Ampetamine Screen Negative Normal (applies to non-nu meric results) [facility] UDS Cannabinoids Screen Negative Normal (applies to non- numeric results) [facility] UDS Opiates Screen Negative Normal (applies to non-numer ic results) [facility] UDS Barbiturates Screen Negative Normal (applies to non- numeric results) [facility] UDS Tricyclic Screen Negative Normal (applies to non-num dread results) [facility] Therapeutic Drug Ranges for Emergency Threshold Levels (ng/mL) PCP 25 Benzodiazepine 300 Cocaine 300 Amphetamines 1000 Cannabinoids 50 Opiates 300 Barbiturates 300 Tricyclic(TCA) 1000 Emergency toxicology analytes exceeding the therapeutic threshold levels are positive. Positive findings are unconfirmed. Positive drug levels may be confirmed at the request of the ordering provider. Results are to be used for medical treatment purposes only. ID Date Data Source [id number] 11/15/2019 03:05:00 AM [facility] Collected By: Nurse Initials: sp Time Collected: [id number] Name Value Range Interpretation Code Description Data [facility] rce(s) Supporting Document(s) Color,Urine Colorl-Dk Y Normal (applies to non-numeric res ults) [facility] Clarity,Urine Clear Normal (applies to non-numeric re sults) [facility] Specific Hendricks,Urine 1.015-1.025 Normal (applies to non- numeric results) [facility] pH,Urine 5.0-7.0 Normal (applies to non-numeric resul ts) [facility] Protein,Urine Negative Normal (applies to non-numeric re sults) [facility] Glucose,Urine Negative Normal (applies to non-numeric re sults) [facility] Ketones,Urine Negative Normal (applies to non-numeric re sults) [facility] Blood,Urine Negative Normal (applies to non-numeric resu lts) [facility] Bilirubin,Urine Negative Normal (applies to non-numeric results) [facility] Urobilinogen,Urine Normal Normal (applies to non-numer ic results) [facility] Leukocyte Esterase,Urine Negative Normal (applies to non -numeric results) [facility] Nitrite,Urine Negative Normal (applies to non-numeric re sults) [facility] ID Date Data Source [id number] 11/14/2019 10:46:00 AM [facility] Name Value Range Interpretation Code Description Data [facility] rce(s) Supporting Document(s) Troponin I 0.000-0.045 Normal (applies to non-numeric resu lts) [facility] ID Date Data Source [id number] 11/14/2019 10:46:00 AM [facility] Name Value Range Interpretation Code Description Data [facility] rce(s) Supporting Document(s) Magnesium 1.80-2.40 Normal (applies to non-numeric resul ts) [facility] ID Date Data Source [id number] 11/14/2019 10:46:00 AM EST [facility] Name Value Range Interpretation Code Description Data [facility]este rce(s) Supporting Document(s) Sodium 144 mmol/L 137-145 Normal (applies to non-numeric resul ts) [facility] Potassium 3.5-5.1 Normal (applies to non-numeric resul ts) [facility] Chloride 112 mmol/L 98-112 Normal (applies to non-numeric resul ts) [facility] Carbon Dioxide CO2 22.0-33.0 Normal (applies to non-numer ic results) [facility] Anion Gap 4.0-11.0 Normal (applies to non-numeric resul ts) [facility] BUN 17 mg/dL 9-20 Normal (applies to non-numeric resul ts) [facility] Creatinine 0.80-1.50 Normal (applies to non-numeric resul ts) [facility] GFR >60 Normal (applies to non-numeric results) [facility] Result based on MDRD formula. Glucose Level 65 mg/dL 74-99 Below low normal [facility] The reference range is only applicable w hen fasting. Calcium-Uncorrected 8.4-10.2 Normal (applies to non-nume gaye results) [facility] Corrected Calcium 8.4-10.2 Normal (applies to non-numeri c results) [facility] ID Date Data Source [id number] 11/14/2019 10:19:00 AM EST [facility] Name Value Range Interpretation Code Description Data [facility] rce(s) Supporting Document(s) White Blood Count 4.8-10.8 Normal (applies to non-numeri c results) [facility] Red Blood Count 4.35-6.08 Normal (applies to non-numeric results) [facility] Hemoglobin 13.0-17.5 Normal (applies to non-numeric resul ts) [facility] Hematocrit 37.7-51.0 Normal (applies to non-numeric resul ts) [facility] Mean Corpuscular Volume 80-94 Normal (applies to non- numeric results) [facility] Mean Corpuscular Hemoglobin 27.0-33.0 Normal (appli es to non-numeric results) [facility] Mean Corpuscular HGB Conc 32.0-36.0 Normal (applies to no n-numeric results) [facility] Red Cell Distribution Width 11.5-14.5 Normal (appli es to non-numeric results) [facility] Platelet Count 191 X10 3/uL 130-450 Normal (applies to non-numeric results) [facility] Mean Platelet Volume 9.6-13.1 Below low normal [facility] Imm Grans% (AUTO) 0.0-2.0 Normal (applies to non-numeri c results) [facility] Neutrophils % (AUTO) 43.0-75.0 Normal (applies to non-num dread results) [facility] Lymphocytes % (AUTO) 20.5-45.5 Normal (applies to non-num dread results) [facility] Monocytes % (AUTO) 5.5-11.7 Normal (applies to non-numer ic results) [facility] Eosinophils % (AUTO) 0.7-4.6 Below low normal [facility] Basophils % (AUTO) 0.2-1.2 Normal (applies to non-numer ic results) [facility] Imm Grans# (AUTO) 0.00-0.50 Normal (applies to non-numeri c results) [facility] Neutrophils # (AUTO) 1.90-7.00 Normal (applies to non-num dread results) [facility] Lymphocytes # (AUTO) 1.30-3.10 Normal (applies to non-num dread results) [facility] Monocytes # (AUTO) 0.40-0.70 Normal (applies to non-numer ic results) [facility] Eosinophils# (AUTO) 0.00-0.30 Normal (applies to non-nume gaye results) [facility] Basophils # (AUTO) 0.00-0.10 Normal (applies to non-numer ic results) [facility] ID Date Data Source [id number] 11/14/2019 08:32:00 AM EST [facility] MB if CPK is elevated? Y Name Value Range Interpretation Code Description Data [facility] rce(s) Supporting Document(s) CPK 186 U/L 39-308 Normal (applies to non-numeric resul ts) [facility] ID Date Data Source [id number] 11/14/2019 07:38:00 AM [facility] Name Value Range Interpretation Code Description Data [facility] rce(s) Supporting Document(s) Troponin I 0.000-0.045 Normal (applies to non-numeric resu lts) [facility] ID Date Data Source [id number] 11/13/2019 11:06:00 PM [facility] MB if CPK is elevated? Y MB if CPK is elevated? Y Name Value Range Interpretation Code Description Data [facility] rce(s) Supporting Document(s) Color,Urine Yellow [facility] Clarity,Urine Clear Normal (applies to non-numeric re sults) [facility] Specific Hendricks,Urine 1.001-1.030 Normal (applies to non- numeric results) [facility] PH,Urine 5.0-8.0 Normal (applies to non-numeric resul ts) [facility] Protein,Urine Negative [facility] Glucose,Urine (UA) Negative Normal (applies to non-numer ic results) [facility] Ketones,Urine 15 mg/dL Negative [facility] Blood,Urine Negative [facility] Bilirubin,Urine Negative [facility] Positive Bilirubin is no longer doublech ecked. Bilirubin may be elevated due to urine color interference. Urobilinogen,Urine Norm 0.2-1 Normal (applies to non-numer ic results) [facility] Leukocyte Esterase,Urine Negative Normal (applies to non -numeric results) [facility] Nitrite,Urine Negative Normal (applies to non-numeric re sults) [facility] ID Date Data Source [id number] 11/13/2019 11:06:00 PM [facility] MB if CPK is elevated? Y MB if CPK is elevated? Y Name Value Range Interpretation Code Description Data [facility] rce(s) Supporting Document(s) RBC,Auto Urine 0-2 Normal (applies to non-numeric r esults) [facility] WBC Urine Auto 0-2 Normal (applies to non-numeric r esults) [facility] Casts,Hyaline,Urine Auto 0-2 Normal (applies to non -numeric results) [facility] Bacteria Urine Auto None Seen Normal (applies to non-nume gaye results) [facility] Epithelial Cell Ur Auto None-Few Normal (applies to non- numeric results) [facility] ID Date Data Source [id number] 11/13/2019 10:59:00 PM [facility] MB if CPK is elevated? Y Name Value Range Interpretation Code Description Data [facility] rce(s) Supporting Document(s) Opiate Screen,Urine Negative Normal (applies to non-nume gaye results) [facility] Barbiturate Screen,Urine Negative Normal (applies to non -numeric results) [facility] Benzodiazepines Scrn,Ur result Negative N ormal (applies to non-numeric results) [facility] Cocaine Screen,Urine Negative [facility] If a positive quantitative confirmation is desired, an additional order must be submitted and the specimen will be sent out to a reference lab. Cannabinoid Screen, Ur Negative [facility] If a positive quantitative confirmation is desired, an additional order must be submitted and the specimen will be sent out to a reference lab. Therapeutic Drug Ranges for Emergency and Rehabilitation Threshold Levels (ng/mL) Cocaine 300 Opiates 300 Cannabinoids 50 Barbiturates 200 Benzodiazepine 200 Methadone 300 Amphetamines 1000 Emergency toxicology analytes exceeding the therapeutic threshold levels are positive. The confirmation of all positive drug levels may be confirmed at the request of the attending physician. Results are to be used for medical treatment purposes only. ID Date Data Source [id number] 11/18/2019 08:39:00 PM [facility] Name Value Range Interpretation Code Description Data [facility] rce(s) Supporting Document(s) Blood Culture-Venous [facility] ID Date Data Source [id number] 11/13/2019 09:19:00 PM [facility] MB if CPK is elevated? Y MB if CPK is e levated? Y MB if CPK is elevated? Y MB if CPK is elevated? Y MB if CPK is e levated? Y MB if CPK is elevated? Y MB if CPK is elevated? Y MB if CPK is e levated? Y MB if CPK is elevated? Y MB if CPK is elevated? Y MB if CPK is e levated? Y MB if CPK is elevated? Y MB if CPK is elevated? Y MB if CPK is e levated? Y MB if CPK is elevated? Y MB if CPK is elevated? Y MB if CPK is e levated? Y MB if CPK is elevated? Y Name Value Range Interpretation Code Description Data [facility] rce(s) Supporting Document(s) Sodium 141 mmol/L 137-145 Normal (applies to non-numeric resul ts) [facility] Potassium 3.5-5.1 Normal (applies to non-numeric resul ts) [facility] Chloride 108 mmol/L 98-112 Normal (applies to non-numeric resul ts) [facility] Carbon Dioxide CO2 22.0-33.0 Normal (applies to non-numer ic results) [facility] Anion Gap 4.0-11.0 Normal (applies to non-numeric resul ts) [facility] BUN 18 mg/dL 9-20 Normal (applies to non-numeric resul ts) [facility] Creatinine 0.80-1.50 Normal (applies to non-numeric resul ts) [facility] GFR 84 mL/min >60 Normal (applies to non-numeric resul ts) [facility] Result based on MDRD formula. Glucose Level 105 mg/dL 74-99 Above high normal [facility] The reference range is only applicable w hen fasting. Calcium-Uncorrected 8.4-10.2 Normal (applies to non-nume gaye results) [facility] Corrected Calcium 8.4-10.2 Normal (applies to non-numeri c results) [facility] Bilirubin,Total 0.2-1.3 Normal (applies to non-numeric results) [facility] SGOT(AST) 18 U/L 17-59 Normal (applies to non-numeric resul ts) [facility] SGPT(ALT) 29 U/L 21-72 Normal (applies to non-numeric resul ts) [facility] Alkaline Phosphatase 48 U/L 38-126 Normal (applies to non-num dread results) [facility] can increase Alkaline Phosp le vels up to 2 times the normal adult value. Normal values for children and adolescents are 2 to 3 times the normal adult value. Total Protein 6.3-8.2 Normal (applies to non-numeric re sults) [facility] Albumin 3.5-5.0 Normal (applies to non-numeric resul ts) [facility] ID Date Data Source [id number] 11/13/2019 09:19:00 PM [facility] MB if CPK is elevated? Y MB if CPK is e levated? Y MB if CPK is elevated? Y MB if CPK is elevated? Y MB if CPK is e levated? Y MB if CPK is elevated? Y MB if CPK is elevated? Y MB if CPK is e levated? Y MB if CPK is elevated? Y MB if CPK is elevated? Y MB if CPK is e levated? Y MB if CPK is elevated? Y MB if CPK is elevated? Y MB if CPK is e levated? Y MB if CPK is elevated? Y MB if CPK is elevated? Y MB if CPK is e levated? Y MB if CPK is elevated? Y Name Value Range Interpretation Code Description Data Celeste rce(s) Supporting Document(s) CPK 178 U/L 39-308 Normal (applies to non-numeric resul ts) [facility] ID Date Data Source [id number] 11/13/2019 09:19:00 PM [facility] MB if CPK is elevated? Y MB if CPK is e levated? Y MB if CPK is elevated? Y MB if CPK is elevated? Y MB if CPK is e levated? Y MB if CPK is elevated? Y MB if CPK is elevated? Y MB if CPK is e levated? Y MB if CPK is elevated? Y MB if CPK is elevated? Y MB if CPK is e levated? Y MB if CPK is elevated? Y MB if CPK is elevated? Y MB if CPK is e levated? Y MB if CPK is elevated? Y MB if CPK is elevated? Y MB if CPK is e levated? Y MB if CPK is elevated? Y Name Value Range Interpretation Code Description Data Celeste rce(s) Supporting Document(s) B-Type Natriuretic Peptide BNP 69 pg/mL <125 N ormal (applies to non-numeric results) [facility] NT-proBNP values less than 300 pg/mL hav e a 99% negative predictive value for excluding acute congestive heart failure. A diagnostic NT-proBNP cutoff of 900 pg/mL has been suggested in adults over 50 years of age in the absence of renal failure. A cutoff of 1200 pg/mL for patients with GFR <60 yields a diagnostic sensitivity and specificity of 89% and 72% for acute congestive failure. ID Date Data Source [id number] 11/13/2019 09:19:00 PM [facility] MB if CPK is elevated? Y MB if CPK is e levated? Y MB if CPK is elevated? Y MB if CPK is elevated? Y MB if CPK is e levated? Y MB if CPK is elevated? Y MB if CPK is elevated? Y MB if CPK is e levated? Y MB if CPK is elevated? Y MB if CPK is elevated? Y MB if CPK is e levated? Y MB if CPK is elevated? Y MB if CPK is elevated? Y MB if CPK is e levated? Y MB if CPK is elevated? Y MB if CPK is elevated? Y MB if CPK is e levated? Y MB if CPK is elevated? Y Name Value Range Interpretation Code Description Data Celeste rce(s) Supporting Document(s) Lipase 54 U/L 73-393 Below low normal [facility] ID Date Data Source [id number] 11/13/2019 09:19:00 PM [facility] MB if CPK is elevated? Y MB if CPK is e levated? Y MB if CPK is elevated? Y MB if CPK is elevated? Y MB if CPK is e levated? Y MB if CPK is elevated? Y MB if CPK is elevated? Y MB if CPK is e levated? Y MB if CPK is elevated? Y MB if CPK is elevated? Y MB if CPK is e levated? Y MB if CPK is elevated? Y MB if CPK is elevated? Y MB if CPK is e levated? Y MB if CPK is elevated? Y MB if CPK is elevated? Y MB if CPK is e levated? Y MB if CPK is elevated? Y Name Value Range Interpretation Code Description Data Celeste rce(s) Supporting Document(s) Salicylate 0.0-20.0 Normal (applies to non-numeric resul ts) [facility] ID Date Data Source [id number] 11/13/2019 09:19:00 PM EST [facility] MB if CPK is elevated? Y MB if CPK is e levated? Y MB if CPK is elevated? Y MB if CPK is elevated? Y MB if CPK is e levated? Y MB if CPK is elevated? Y MB if CPK is elevated? Y MB if CPK is e levated? Y MB if CPK is elevated? Y MB if CPK is elevated? Y MB if CPK is e levated? Y MB if CPK is elevated? Y MB if CPK is elevated? Y MB if CPK is e levated? Y MB if CPK is elevated? Y MB if CPK is elevated? Y MB if CPK is e levated? Y MB if CPK is elevated? Y Name Value Range Interpretation Code Description Data Celeste rce(s) Supporting Document(s) Acetaminophen 10.0-30.0 Below low normal [facility] Hospital ID Date Data Source [id number] 11/13/2019 09:18:00 PM [facility] Name Value Range Interpretation Code Description Data Celeste rce(s) Supporting Document(s) Troponin I 0.000-0.045 Normal (applies to non-numeric resu lts) [facility] ID Date Data Source [id number] 11/13/2019 09:13:00 PM [facility] 3 hour post Lactic if elevated? Y Name Value Range Interpretation Code Description Data Celeste rce(s) Supporting Document(s) Lactic Acid 0.4-2.0 Normal (applies to non-numeric resu lts) [facility] ID Date Data Source [id number] 11/13/2019 09:12:00 PM [facility] MB if CPK is elevated? Y Name Value Range Interpretation Code Description Data Celeste rce(s) Supporting Document(s) Ethanol Less than 10.0 Normal (applies to non-numeric r esults) [facility] ID Date Data Source [id number] 11/13/2019 09:11:00 PM EST [facility] Name Value Range Interpretation Code Description Data Celeste rce(s) Supporting Document(s) PT 9.4-12.5 Above high normal [facility] INR Normal (applies to non-numeric results) [facility] The use of the INR is restricted to silvio ents on stable oral anticoagulant. Therapeutic Range: 2.0-3.0 High Risk Values: 2.5-3.5 ID Date Data Source [id number] 11/13/2019 09:11:00 PM EST [facility] Name Value Range Interpretation Code Description Data Celeste rce(s) Supporting Document(s) PTT 25.1-36.5 Normal (applies to non-numeric resul ts) [facility] ID Date Data Source [id number] 11/13/2019 08:52:00 PM EST [facility] Name Value Range Interpretation Code Description Data Celeste rce(s) Supporting Document(s) White Blood Count 4.8-10.8 Above high normal [facility] Red Blood Count 4.35-6.08 Normal (applies to non-numeric results) [facility] Hemoglobin 13.0-17.5 Normal (applies to non-numeric resul ts) [facility] Hematocrit 37.7-51.0 Normal (applies to non-numeric resul ts) [facility] Mean Corpuscular Volume 80-94 Normal (applies to non- numeric results) [facility] Mean Corpuscular Hemoglobin 27.0-33.0 Normal (appli es to non-numeric results) [facility] Mean Corpuscular HGB Conc 32.0-36.[address] [facility] Red Cell Distribution Width 11.5-14.5 Normal (appli es to non-numeric results) [facility] Platelet Count 256 X10 3/uL 130-450 Normal (applies to non-numeric results) [facility] Mean Platelet Volume 9.6-13.1 Below low normal [facility] Imm Grans% (AUTO) 0.0-2.0 Normal (applies to non-numeri c results) [facility] Neutrophils % (AUTO) 43.0-75.0 Above high normal [facility] Lymphocytes % (AUTO) 20.5-45.5 Below low normal [facility] Monocytes % (AUTO) 5.5-11.7 Normal (applies to non-numer ic results) [facility] Eosinophils % (AUTO) 0.7-4.6 Below low normal [facility] Basophils % (AUTO) 0.2-1.2 Normal (applies to non-numer ic results) [facility] Imm Grans# (AUTO) 0.00-0.50 Normal (applies to non-numeri c results) [facility] Neutrophils # (AUTO) 1.90-7.00 Above high normal [facility] Lymphocytes # (AUTO) 1.30-3.10 Normal (applies to non-num dread results) [facility] Monocytes # (AUTO) 0.40-0.70 Above high normal [facility] Eosinophils# (AUTO) 0.00-0.30 Normal (applies to non-nume gaye results) [facility] Basophils # (AUTO) 0.00-0.10 Normal (applies to non-numer ic results) [facility] ID Date Data Source [id number] 11/18/2019 09:23:00 PM [facility] Hospital Name Value Range Interpretation Code Description Data Celeste rce(s) Supporting Document(s) Blood Culture-Venous [facility] ID Date Data Source [id number] 11/16/2019 10:42:00 AM [facility] Hospital Name: [place] GAS[place] : 1985 Age/Sex: 34M Ordering Provider: DO Bernardo Zaidi Rec #: [id number] Reg Status:DIS IN Room #: 250-9 Date of Service: 11/13/19 Report Number: [id number] cc: Tayo Shcaefer MD; Yandy Schaefer MD; Marciano Garcia DO Send Report To: SINUS TACHYCARDIA ABNORMAL RHYTHM ECG COMPARED TO PRIOR STUDY 09/23/2019 THERE IS INTERVAL RESOLUTION OF THE T WAVE INVERSION THAT WAS SEEN IN LEAD V3. NO OTHER SIGNIFICANT CHANGES. Physician Graphic Art Sales Representative: Simone Echols D.O. ECG HEART RATE: 112 /min ECG RR INTERVAL: 534 ms ECG P DURATION: 88 ms ECG QRS DURATION: 85 ms ECG [place] INTERVAL: 124 ms ECG QT INTERVAL: 312 ms ECG QTC INTERVAL: 403 ms Q-T dispersion: ms ECG P AXIS: 63 deg ECG QRS AXIS: 67 deg ECG T AXIS: 30 deg REPORT SIGNATURE ON FILE 11/16/19 1044 Reported By: Simone Echols DO <Electronically signed by Simone Echols DO in OV> * <<Signature on File>> Exam Date/Time: 11/13/19 [facility] Order #: [id number] Dictation Date/Time: 11/16/192 Transcribed Date/Time: 11/16/19 1042 Rib Knitter: IATRICS Name Value Range Interpretation Code Description Data Celeste rce(s) Supporting Document(s) ID Date Data Source [id number] 11/14/2019 06:35:00 AM EST [facility] Name: [place] GASPAR : 1985 Age/Sex: 34M Ordering Provider: Marciano Garcia DO Med Rec #: [id number] Reg Status: DIS IN Room #: 250-9 Date of Service: 11/13/19 Report Number: [id number] cc:Tayo Schaefer MD; Marciano Garcia DO Send Report To: [id number] XRP/XR Chest Xray Portable Reason for exam: _PAIN - CHEST FINDINGS: The cardiac and mediastinal silhouettes appear normal and the lungs are clear. The bones and soft tissues are normal. The upper abdomen is unremarkable. IMPRESSION: No acute disease identifiable. Fluoroscopy time in seconds: Number of Exposures: Time Portable Image Performed: 2028 Contrast Agent in ml: Method of Administration: REPORT SIGNATURE ON FILE Reported By: Raza Hatch MD <Electronically signed by Moustapha Hatch MD> 11/16/19800 Dictation Date/Time: 11/13/192044 Transcribed Date/Time: 11/14/19634 Rib Knitter: KIM Name Value Range Interpretation Code Description Data Celeste rce(s) Supporting Document(s) Procedure Social History Code Duration Value Status Description Data Source(s ) Smoking 10/18/2020 12:00:00 AM EST Current Smoker completed Curre nt Smoker eCW1 (Formerly [facility]) Vital Signs ID Date Data Source UNK Name Value Range Interpretation Code Description Data Source(s) Diastolic blood pressure 80 mm[Hg] 80 mm[Hg] eCW1 ([facility]ly [facility]) Systolic blood pressure 118 mm[Hg] 118 mm[Hg] e CW1 (Formerly [facility]) Body temperature 97.2 [degF] 97.2 [degF] eCW1 ( Formerly [facility]) Respiratory rate 18 /min 18 /min eCW1 ([facility]) Heart rate 71 /min 71 /min eCW1 ([facility]) Body mass index (BMI) [Ratio] 34.40 kg/m2 34.40 kg/m2 eCW1 ([facility]ly [facility]) Body height 69 [in_i] 69 [in_i] eCW1 ([facility]) Body weight 233 [lb_av] 233 [lb_av] eCW1 ([facility]) Body mass index (BMI) [Ratio] 34.0 kg/m2 34.0 k g/m2 MEDENT ([facility]) Body weight 233.00 [lb_av] 233.00 [lb_av] MEDEN T ([facility]) Body height 69.4 [in_i] 69.4 [in_i] MEDENT ([facility]) 5'9.40" Body temperature 97.5 [degF] 97.5 [degF] MEDENT ([facility]) Heart rate 80 /min 80 /min MEDENT ([facility]) Diastolic blood pressure 80 mm[Hg] 80 mm[Hg] MEDENT ([facility]) Systolic blood pressure 122 mm[Hg] 122 mm[Hg] M EDENT ([facility]) Body temperature 97.1 [degF] 97.1 [degF] MEDENT ([facility]) Heart rate 104 /min 104 /min MEDENT ([facility]) Diastolic blood pressure 60 mm[Hg] 60 mm[Hg] MEDENT ([facility]) Systolic blood pressure 114 mm[Hg] 114 mm[Hg] M EDENT ([facility]) Oxygen saturation in Arterial blood by Pulse oximetry 98 % 98 % MEDENT ([facility]) Body mass index (BMI) [Ratio] 33.9 kg/m2 33.9 k g/m2 MEDENT ([facility]) Body weight 232.38 [lb_av] 232.38 [lb_av] MEDEN T ([facility]) Body height 69.4 [in_i] 69.4 [in_i] MEDENT ([facility]) 5'9.40" ID Date Data Source [id number] 11/18/2019 02:40:00 PM [facility] Name Value Range Interpretation Code Description Data Source(s) Weight (Calculated Kilograms) 74.[address] [facility] Height (Calculated Centimeters) 175.[address] [facility] Body Mass Index (BMI) 24.3 24.3 [facility] ID Date Data Source [id number] 12/09/2019 08:18:00 AM [facility] Name Value Range Interpretation Code Description Data Source(s) Weight Measurement Method [address] [facility] Weight (Calculated Kilograms) 74.[address] [facility] Weight [address] [facility] Temperature Source [address] [facility] Temperature 97.0 97.0 [facility] Respiratory Effort [address] [facility] Respiratory Rate 15 15 [facility] Pulse Assessment Method 4 4 [facility] Pulse Rate [address] [facility] Height (Calculated Centimeters) 175.[address] [facility] Height [address] [facility] Blood Pressure 110/69 110/69 [facility] Body Mass Index (BMI) 24.3 24.3 [facility] Weight Measurement Method [address] [facility] Weight (Calculated Kilograms) 74.[address] [facility] Weight [address] [facility] Temperature Source [address] [facility] Temperature 97.0 97.0 [facility] Respiratory Effort [address] [facility] Respiratory Rate 15 15 [facility] Pulse Assessment Method 4 4 [facility] Pulse Rate [address] [facility] Height (Calculated Centimeters) 175.[address] [facility] Height [address] [facility] Blood Pressure 110/69 110/69 [facility] Body Mass Index (BMI) 24.3 24.3 [facility] Weight Measurement Method [address] [facility] Weight (Calculated Kilograms) 74.[address] [facility] Weight [address] [facility] Temperature Source [address] [facility] Temperature 97.0 97.0 [facility] Respiratory Effort [address] [facility] Respiratory Rate 15 15 [facility] Pulse Assessment Method 4 4 [facility] Pulse Rate [address] [facility] Height (Calculated Centimeters) 175.[address] [facility] Height [address] [facility] Blood Pressure 110/69 110/69 [facility] Body Mass Index (BMI) 24.3 24.3 [facility] Weight Measurement Method [address] [facility] Weight (Calculated Kilograms) 74.[address] [facility] Weight [address] [facility] Temperature Source [address] [facility] Temperature 97.1 97.1 [facility] Respiratory Effort [address] [facility] Respiratory Rate 16 16 [facility] Pulse Assessment Method 4 4 [facility] Pulse Rate [address] [facility] Height (Calculated Centimeters) 175.[address] [facility] Height [address] [facility] Blood Pressure 138/84 138/84 [facility] Body Mass Index (BMI) 24.3 24.3 [facility] Weight Measurement Method [address] [facility] Weight (Calculated Kilograms) 74.[address] [facility] Weight [address] [facility] Temperature Source [address] [facility] Temperature 97.3 97.3 [facility] Respiratory Effort [address] [facility] Respiratory Rate 16 16 [facility] Pulse Assessment Method 4 4 [facility] Pulse Rate [address] [facility] Height (Calculated Centimeters) 175.[address] [facility] Height [address] [facility] Blood Pressure 127/79 127/79 [facility] Body Mass Index (BMI) 24.3 24.3 [facility] Weight Measurement Method [address] [facility] Weight (Calculated Kilograms) 74.[address] [facility] Weight [address] [facility] Temperature Source [address] [facility] Temperature 97.3 97.3 [facility] Respiratory Effort [address] [facility] Respiratory Rate 16 16 [facility] Pulse Assessment Method 4 4 [facility] Pulse Rate [address] [facility] Height (Calculated Centimeters) 175.[address] [facility] Height [address] [facility] Blood Pressure 112/73 112/73 [facility] Body Mass Index (BMI) 24.3 24.3 [facility] Weight (Calculated Kilograms) 66.[address] [facility] Height (Calculated Centimeters) 175.[address] [facility] Body Mass Index (BMI) 21.7 21.7 [facility] ID Date Data Source [id number] 11/16/2019 01:55:00 PM EST [facility] Hospital Name Value Range Interpretation Code Description Data Source(s) Weight (Calculated Kilograms) 66.[address] [facility] Height (Calculated Centimeters) 175.[address] [facility] Body Mass Index (BMI) 21.7 21.7 [facility] ID Date Data Source [id number] 11/26/2019 10:04:00 AM EST [facility] spital Name Value Range Interpretation Code Description Data Source(s) Weight Measurement Method 1 1 [facility] Weight (Calculated Kilograms) 72.03 72.03 [facility] Weight 2540.8 2540.8 [facility] pital Temperature Source 7 7 [facility] Temperature 98.2 98.2 [facility] Respiratory Effort 1 1 [facility] Respiratory Rate 18 18 [facility] Pulse Assessment Method 4 4 [facility] Pulse Rate 75 75 [facility] pital Height (Calculated Centimeters) 175.26 175. 26 [facility] Height 69 69 [facility] Blood Pressure 112/78 112/78 [facility] Body Mass Index (BMI) 23.[address] Weight Measurement Method 1 1 [facility] Weight (Calculated Kilograms) 72.03 72.03 [facility] Weight 2540.8 2540.8 [facility] pital Temperature Source 7 7 [facility] Temperature 98.2 98.2 [facility] spital Respiratory Effort 1 1 [facility] Respiratory Rate 18 18 [facility] Pulse Assessment Method 4 4 [facility] Pulse Rate 75 75 [facility] pital Height (Calculated Centimeters) 175.26 175. 26 [facility] Height 69 69 [facility] pital Blood Pressure 112/78 112/78 [facility] Body Mass Index (BMI) 23.4 234 [facility] Weight Measurement Method 1 1 [facility] Weight (Calculated Kilograms) 72.03 72.03 [facility] Weight 2540.8 2540.8 [facility] pital Temperature Source 7 7 [facility] Temperature 98.2 98.2 [facility] Respiratory Effort 1 1 [facility] Respiratory Rate 18 18 [facility] Pulse Assessment Method 4 4 [facility] Pulse Rate 75 75 [facility] pital Height (Calculated Centimeters) 175.26 175. 26 [facility] Height 69 69 [facility] pital Blood Pressure 112/78 112/78 [facility] Body Mass Index (BMI) 23.4 23.4 [facility] Weight Measurement Method 1 1 [facility] Weight (Calculated Kilograms) 72.03 72.03 [facility] Weight 2540.8 2540.8 [facility] pital Temperature Source 7 7 [facility] Temperature 97.5 97.5 [facility] Respiratory Effort 1 1 [facility] Respiratory Rate 18 18 [facility] Pulse Assessment Method 4 4 [facility] Pulse Rate 81 81 [facility] pital Height (Calculated Centimeters) 175.26 175. 26 [facility] Height 69 69 [facility] Blood Pressure 115/77 115/77 [facility] Body Mass Index (BMI) 23.4 23.4 [facility] Weight Measurement Method 1 1 [facility] Weight (Calculated Kilograms) 72.03 72.03 [facility] Weight 2540.8 2540.8 [facility] pital Temperature Source 7 7 [facility] Temperature 97.9 97.9 [facility] spital Respiratory Effort 1 1 [facility] Respiratory Rate 20 20 [facility] Pulse Assessment Method 4 4 [facility] Pulse Rate 73 73 [facility] pital Height (Calculated Centimeters) 175.26 175. 26 [facility] Height 69 69 [facility] Blood Pressure 130/84 130/84 [facility] Body Mass Index (BMI) 23.4 23.4 [facility] Weight Measurement Method 1 1 [facility] Weight (Calculated Kilograms) 72.03 72.03 [facility] Weight 2540.8 2540.8 [facility] pital Temperature Source 1 1 [facility] Temperature 99.4 99.4 [facility] spital Respiratory Effort 1 1 [facility] Respiratory Rate 16 16 [facility] Pulse Assessment Method 4 4 [facility] Pulse Rate 74 74 [facility] pital Height (Calculated Centimeters) 175.26 175. 26 [facility] Height 69 69 [facility] Blood Pressure 117/76 117/76 [facility] Body Mass Index (BMI) 23.4 23.4 [facility] Weight (Calculated Kilograms) 70.31 70.31 [facility] Height (Calculated Centimeters) 175.26 175. 26 [facility] Body Mass Index (BMI) 22.8 22.8 [facility] ID Date Data Source [id number] 11/26/2019 10:04:00 AM EST [facility] Name Value Range Interpretation Code Description Data Source(s) Weight Measurement Method [address] [facility] Weight (Calculated Kilograms) 66.[address] [facility] Weight [address] [facility] Temperature Source [address] [facility] Temperature 98.4 98.4 [facility] Respiratory Effort [address] [facility] Respiratory Rate 17 17 [facility] Pulse Assessment Method 4 4 [facility] Pulse Rate [address] [facility] Height (Calculated Centimeters) 175.[address] [facility] Blood Pressure 108/66 108/66 [facility] Body Mass Index (BMI) 21.7 21.7 [facility] Weight Measurement Method [address] [facility] Weight (Calculated Kilograms) 66.[address] [facility] Weight [address] [facility] Temperature Source [address] [facility] Temperature 98.4 98.4 [facility] Respiratory Effort [address] [facility] Respiratory Rate 17 17 [facility] Pulse Assessment Method 4 4 [facility] Pulse Rate [address] [facility] Height (Calculated Centimeters) 175.[address] [facility] Blood Pressure 108/66 108/66 [facility] Body Mass Index (BMI) 21.7 21.7 [facility] Weight (Calculated Kilograms) 66.[address] [facility] Height (Calculated Centimeters) 175.[address] [facility] Body Mass Index (BMI) 21.7 21.7 [facility] Weight (Calculated Kilograms) 66.[address] [facility] Height (Calculated Centimeters) 175.[address] [facility] Body Mass Index (BMI) 21.7 21.7 [facility] Weight (Calculated Kilograms) 66.[address] [facility] Height (Calculated Centimeters) 175.[address] [facility] Body Mass Index (BMI) 21.7 21.7 [facility] Weight (Calculated Kilograms) 66.[address] [facility] Height (Calculated Centimeters) 175.[address] [facility] Body Mass Index (BMI) 21.7 21.7 [facility] Weight (Calculated Kilograms) 66.[address] [facility] Height (Calculated Centimeters) 175.[address] [facility] Body Mass Index (BMI) 21.7 21.7 [facility] ID Date Data Source [id number] 11/26/2019 10:04:00 AM EST [facility] spital Name Value Range Interpretation Code Description Data Source(s) Weight Measurement Method 1 1 [facility] Weight (Calculated Kilograms) 70.31 70.31 [facility] Weight 2480 2480 [facility] Temperature Source 1 1 [facility] Temperature 97.3 97.3 [facility]ital Respiratory Effort 1 1 [facility] Respiratory Rate 16 16 [facility] Pulse Assessment Method 4 4 [facility] Pulse Rate 80 80 [facility] Height (Calculated Centimeters) 175.26 175. 26 [facility] Height 69 69 [facility] Blood Pressure 112/74 112/74 [facility] Body Mass Index (BMI) 22.8 22.8 [facility] Weight Measurement Method 1 1 [facility] Weight (Calculated Kilograms) 70.31 70.31 [facility] Weight 2480 2480 [facility] pital Temperature Source 1 1 [facility] Temperature 97.3 97.3 [facility] spital Respiratory Effort 1 1 [facility] Respiratory Rate 16 16 [facility] Pulse Assessment Method 4 4 [facility] Pulse Rate 80 80 [facility] pital Height (Calculated Centimeters) 175.26 175. 26 [facility] Height 69 69 [facility] Blood Pressure 112/74 112/74 [facility] Body Mass Index (BMI) 22.8 22.8 [facility] Weight Measurement Method 1 1 [facility] Weight (Calculated Kilograms) 70.31 70.31 [facility] Weight 2480 2480 [facility] pital Temperature Source 1 1 [facility] Temperature 97.3 97.3 [facility] spital Respiratory Effort 1 1 [facility] Respiratory Rate 16 16 [facility] Pulse Assessment Method 4 4 [facility] Pulse Rate 80 80 [facility] pital Height (Calculated Centimeters) 175.26 175. 26 [facility] Height 69 69 [facility] Blood Pressure 112/74 112/74 [facility] Body Mass Index (BMI) 22.8 228 [facility] ID Date Data Source [id number] 11/26/2019 10:04:00 AM EST [facility] Name Value Range Interpretation Code Description Data Source(s) Weight (Calculated Kilograms) 66.[address] Height (Calculated Centimeters) 175.[address] [facility] Body Mass Index (BMI) 21.7 21.7 [facility] Weight (Calculated Kilograms) 66.[address] [facility] Height (Calculated Centimeters) 175.[address] [facility] Body Mass Index (BMI) 21.7 21.7 [facility] Weight (Calculated Kilograms) 66.[address] [facility] Height (Calculated Centimeters) 175.[address] [facility] Body Mass Index (BMI) 21.7 21.7 [facility] Weight (Calculated Kilograms) 66.[address] [facility] Height (Calculated Centimeters) 175.[address] [facility] Body Mass Index (BMI) 21.7 21.7 [facility] Patient Treatment Plan of Care Planned Activity Planned Date Details Description Data Source (s) doxycycline hyclate 100 MG Oral Capsule 10/18/2020 12:00:00 AM EST [email or web address] (Formerly [facility]) Colchicine 0.5 MG / Probenecid 500 MG Oral Tablet 10/18/2020 12: 00:00 AM EST [email or web address] (Formerly [facility])
[2020-12-28 16:34] LABS: ACETAMINOPHEN LEVEL < 2.0 UG/ML (10.0-30.0); ALBUMIN 4.2 GM/DL (3.2-5.2); ALT/SGPT 66 U/L (12-78); BILIRUBIN,DIRECT 0.3 MG/DL (0.0-0.2); BILIRUBIN,TOTAL 1.1 MG/DL (0.2-1.0); BLOOD UREA NITROGEN 15 MG/DL (7-18); CALCIUM LEVEL 9.1 MG/DL (8.5-10.1); CARBON DIOXIDE LEVEL 25 MEQ/L (21-32); CHLORIDE LEVEL 102 MEQ/L (98-107); CPK CREATINE PHOSPHOKINASE 138 U/L (39-308); CREATININE FOR GFR 0.85 MG/DL (0.70-1.30); ETHYL ALCOHOL (ETHANOL) < 0.003 % (0.000-0.010); GLOMERULAR FILTRATION RATE > 60.0 (>60); GLUCOSE, FASTING 98 MG/DL (70-100); MB/CK RELATIVE INDEX 1.45 (< OR =4); POTASSIUM SERUM 3.8 MEQ/L (3.5-5.1); SALICYLATE LEVEL < 1.7 MG/DL (5.0-30.0); SODIUM LEVEL 139 MEQ/L (136-145); TOTAL PROTEIN 8.1 GM/DL (6.4-8.2); TROPONIN I < 0.02 NG/ML (< 0.10)
[2020-12-28] MEDS ORDERED: IBUPROFEN 600MG TAB PO ONE (16:45)
[2020-12-28 17:22] LABS: AMPHETAMINES LEVEL URINE NEGATIVE (NEGATIVE); BARBITURATES URINE NEGATIVE (NEGATIVE); BENZODIAZEPINES URINE NEGATIVE (NEGATIVE); CANNABINOIDS URINE NEGATIVE (NEGATIVE); COCAINE METABOLITE URINE NEGATIVE (NEGATIVE); METHADONE URINE NEGATIVE (NEGATIVE); OPIATES URINE NEGATIVE (NEGATIVE); PHENCYCLIDINE URINE NEGATIVE (NEGATIVE)
[2020-12-28 19:25] VITALS: BP 116/91
--- NOTE | 2020-12-30 08:08 | ECGEPIP ---
[facility] - ED Test Date: 2020-12-28 Pat Name: AFRICA KINNEY Department: Room: - Gender: Male [employer]: JYOTSNA : 1985 Requested By: RAHUL Pop Order Number: [id number] Reading MD: Lety Mckeon Measurements Intervals [place] Rate: 116 P: 36 NM: 142 QRS: 32 QRSD: 78 T: 2 QT: 306 QTc: 425 Interpretive Statements Sinus tachycardia Nonspecific T wave abnormality decreased rate 12/06/20 Electronically Signed on 12-30-2020 8:08:13 EST by Lety Mckeon
== END 2020-12-28 20:24 | disposition home or self-care (01) ==
LOC: M ED 14:57 → EDBD 14:57 → M ED 20:24
DX: F32.9 Major depressive disorder, single episode, unspecified (principal); F19.10 Other psychoactive substance abuse, uncomplicated; R00.0 Tachycardia, unspecified; Z79.899 Other long term (current) drug therapy

== ENCOUNTER 2020-12-30 22:25 | Emergency (ER) | payer OTHER ==
[~2020-12-30] VITALS: Ht 175.3 cm; Wt 92.3 kg
--- OUTSIDE RECORDS SUMMARY | 2020-12-30 22:33 | CCD ---
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 Hepatitis C Virus Ab result Nonreactive Norm al (applies to non-numeric results) [facility] Test Performed By: [place] [address] Director: Lacho Henriquez MD ID Date Data Source [id number] 11/16/2019 02:17:00 PM [facility] Name Value Range Interpretation Code Description Data Celeste rce(s) Supporting Document(s) Hep Bs Ag result T-Test Nonreactive Normal (applies to non -numeric results) [facility] Test Performed By: [place] [address] Director: Lacho Henriquez MD ID Date Data Source [id number] 11/16/2019 02:17:00 PM [facility] Value Range Interpretation Code Description Data Celeste rce(s) Supporting Document(s) Syphilis Serology result Nonreactive Normal (applies to non-numeric results) [facility] Test Performed By: [place] [address] Director: Lacho Henriquez MD ID Date Data Source [id number] 11/16/2019 02:17:00 PM [facility] Value Range Interpretation Code Description Data Celeste rce(s) Supporting Document(s) Chlamydia,Urine result Negative Normal (applies to non-n umeric results) [facility] Test Performed By: [place] [address] Director: Lacho Henriquez MD . GC Urine result Negative Normal (applies to non-numeric results) [facility] Test Performed By: [place] [address] Director: Lacho Henriquez MD . Methodology: Second generation nucleic acid amplification. ID Date Data Source [id number] 11/16/2019 01:55:00 PM EST [facility] Value Range Interpretation Code Description Data Celeste rce(s) Supporting Document(s) Chlamydia,Urine Negative Normal (applies to non-numeric results) [facility] Test Performed By: [place] [address] Director: Lacho Henriquez MD . GC Urine Negative Normal (applies to non-numeric resul ts) [facility] Test Performed By: [place] [address] Director: Lacho Henriquez MD . Methodology: Second generation nucleic acid amplification. ID Date Data Source [id number] 11/15/2019 05:26:00 PM EST [facility] Value Range Interpretation Code Description Data Celeste rce(s) Supporting Document(s) Hep C Ab-T Test Nonreactive Normal (applies to non-numeric results) [facility] Test Performed By: [place] [address] Director: Lacho Henriquez MD ID Date Data Source [id number] 11/15/2019 05:26:00 PM EST [facility] Value Range Interpretation Code Description Data Celeste rce(s) Supporting Document(s) Hep Bs Ag Result T-Test Nonreactive Normal (applies to non -numeric results) [facility] Test Performed By: [place] [address] Director: Lacho Henriquez MD ID Date Data Source [id number] 11/15/2019 05:26:00 PM EST [facility] Value Range Interpretation Code Description Data Celeste rce(s) Supporting Document(s) Syphilis Serology Nonreactive Normal (applies to non-numer ic results) [facility] Test Performed By: [place] [address] Director: Lacho Henriquez MD ID Date Data Source [id number] 11/15/2019 03:40:00 PM EST [facility] Name Value Range Interpretation Code Description Data Celeste rce(s) Supporting Document(s) CPK 137 U/L 39-308 Normal (applies to non-numeric resul ts) [facility] [address] [place] [address] Director: Lacho Henriquez MD ID Date Data Source [id number] 11/14/2019 08:04:00 PM [facility] Name Value Range Interpretation Code Description Data Celeste rce(s) Supporting Document(s) Ethanol Less than 10.0 Normal (applies to non-numeric r esults) [facility] ID Date Data Source [id number] 11/14/2019 08:03:00 PM [facility] Name Value Range Interpretation Code Description Data Celeste rce(s) Supporting Document(s) Sodium 140 mmol/L 136-145 Normal (applies to non-numeric resul ts) [facility] Potassium 3.5-5.1 Normal (applies to non-numeric resul ts) [facility] Chloride 103 mmol/L 98-107 Normal (applies to non-numeric resul ts) [facility] Carbon Dioxide CO2 21-32 Normal (applies to non-numer ic results) [facility] Anion Gap 5.0-16.0 Normal (applies to non-numeric resul ts) [facility] BUN 13 mg/dL 7-18 Normal (applies to non-numeric results) [facility] Creatinine,Serum 0.8-1.5 Normal (applies to non-numeric results) [facility] GFR >60 Normal (applies to non-numeric results) [facility] Glucose Level 115 mg/dL 60-99 Above high normal [facility] Reference range is only applicable when patient is fasting Note the following drug interference: Sulfasalazine Sulfapyridine Can see falsely depressed Can see falsely elevated result with up to 17% results with up to 11% decrease in measurement increase in measurement Recommend patients be collected for this test prior to administration of either drug. Calcium 8.5-10.1 Normal (applies to non-numeric resul ts) [facility] Bilirubin,Total 0.1-1.9 Normal (applies to non-numeric results) [facility] SGOT(AST) 11 U/L 15-37 Below low normal [facility] Note the following drug interference: Sulfasalazine Sulfapyridine Can see falsely depressed Can see falsely elevated result with up to 10% results with up to 10% decrease in measurement increase in measurement Recommend patients be collected for this test prior to administration of either drug. SGPT(ALT) 28 U/L 12-78 Normal (applies to non-numeric resul ts) [facility] Note the following drug interference: Sulfasalazine Sulfapyridine Can see falsely depressed Can see falsely elevated result with up to 29% results with up to 10% decrease in measurement increase in measurement Recommend patients be collected for this test prior to administration of either drug. Alkaline Phosphatase 49 U/L 38-126 Normal (applies to non-num dread results) [facility] can increase Alkaline Phosp le vels up to 2 times the normal adult value. Normal values for children and adolescents are 2 to 3 times the normal adult value. Total Protein 6.0-8.2 Normal (applies to non-numeric re sults) [facility] Albumin Level 3.4-5.0 Normal (applies to non-numeric re sults) [facility] ID Date Data Source [id number] 11/14/2019 08:03:00 PM [facility] Name Value Range Interpretation Code Description Data Celeste rce(s) Supporting Document(s) Bilirubin,Direct 0.05-0.20 Normal (applies to non-numeric results) [facility] ID Date Data Source [id number] 11/14/2019 08:03:00 PM [facility] Name Value Range Interpretation Code Description Data Celeste rce(s) Supporting Document(s) Phosphorus 2.5-4.9 Normal (applies to non-numeric resul ts) [facility] ID Date Data Source [id number] 11/14/2019 08:03:00 PM [facility] Name Value Range Interpretation Code Description Data Celeste rce(s) Supporting Document(s) Magnesium 1.8-2.4 Normal (applies to non-numeric resul ts) [facility] ID Date Data Source [id number] 11/14/2019 08:03:00 PM EST [facility] Name Value Range Interpretation Code Description Data Celeste rce(s) Supporting Document(s) Thyroid Stimulate Hormone TSH 0.358-3.74 Below low normal [facility] ID Date Data Source [id number] 11/14/2019 07:53:00 PM EST [facility] Name Value Range Interpretation Code Description Data Celeste rce(s) Supporting Document(s) White Blood Count 3.5-10.5 Normal (applies to non-numeri c results) [facility] Red Blood Count 4.30-5.70 Normal (applies to non-numeric results) [facility] Hemoglobin 13.5-17.5 Normal (applies to non-numeric resul ts) [facility] Hematocrit 38.8-50.0 Normal (applies to non-numeric resul ts) [facility] Mean Corpuscular Volume 81.2-95.1 Normal (applies to non- numeric results) [facility] Mean Corpuscular Hgb 25.6-32.2 Normal (applies to non-num dread results) [facility] Mean Corpuscular Hgb Conc 32.0-36.0 Normal (applies to no n-numeric results) [facility] Red Cell Distribution Width 11.8-15.6 Normal (appli es to non-numeric results) [facility] Platelet Count 203 x10 3/uL 150-450 Normal (applies to non-numeric results) [facility] Mean Platelet Volume 9.4-12.4 Below low normal [facility] Neutrophils% (Auto) 31.0-71.0 Normal (applies to non-nume gaye results) [facility] Lymphocytes% (Auto) 20.0-55.0 Normal (applies to non-nume gaye results) [facility] Monocytes% (Auto) 4.0-12.0 Normal (applies to non-numeri c results) [facility] Eosinophils% (Auto) 1.0-8.0 Below low normal [facility] Basophils% (Auto) 0.0-2.0 Normal (applies to non-numeri c results) [facility] Immature Granulocytes% (Auto) 0.0-2.0 Normal (burke lies to non-numeric results) [facility] Neutrophils# (Auto) 1.50-6.20 Normal (applies to non-nume gaye results) [facility] Lymphocytes# (Auto) 1.20-4.00 Normal (applies to non-nume gaye results) [facility] Monocytes# (Auto) 0.00-0.90 Normal (applies to non-numeri c results) [facility] Eosinophils# (Auto) 0.00-0.50 Normal (applies to non-nume gaye results) [facility] Basophils# (Auto) 0.00-0.20 Normal (applies to non-numeri c results) [facility] Immature Granulocytes# (Auto) 0.00-7.00 No rmal (applies to non-numeric results) [facility] ID Date Data Source [id number] 11/15/2019 03:26:00 AM EST [facility] Name Value Range Interpretation Code Description Data Celeste rce(s) Supporting Document(s) UDS Phencyclidine Screen Negative Normal (applies to non -numeric results) [facility] UDS Benzodiazepines Screen Negative [facility] UDS Cocaine Screen Negative [facility] UDS Ampetamine Screen Negative Normal (applies to non-nu meric results) [facility] UDS Cannabinoids Screen Negative Normal (applies to non- numeric results) [facility] UDS Opiates Screen Negative Normal (applies to non-numer ic results) [facility] UDS Barbiturates Screen Negative Normal (applies to non- numeric results) [facility] UDS Tricyclic Screen Negative Normal (applies to non-num dread results) [facility] Therapeutic Drug Ranges for Emergency Threshold Levels [...] treatment purposes only. ID Date Data Source [id number] 11/15/2019 03:05:00 AM [facility] Collected By: Nurse Initials: sp Time Collected: 2199 Name Value Range Interpretation Code Description Data Celeste rce(s) Supporting Document(s) Color,Urine Colorl-Dk Y Normal (applies to non-numeric res ults) [facility] Clarity,Urine Clear Normal (applies to non-numeric re sults) [facility] Specific [place],Urine 1.015-1.025 Normal (applies to non- numeric results) [facility] pH,Urine 5.0-7.0 Normal (applies to non-numeric resul ts) [facility] Protein,Urine Negative Normal (applies to non-numeric re sults) [facility] Glucose,Urine Negative Normal (applies to non-numeric re sults) [facility] Ketones,Urine Negative Normal (applies to non-numeric re sults) [facility] Blood,Urine Negative Normal (applies to non-numeric resu lts) [facility] Bilirubin,Urine Negative Normal (applies to non-numeric results) [facility] Urobilinogen,Urine Normal Normal (applies to non-numer ic results) [facility] Leukocyte Esterase,Urine Negative Normal (applies to non -numeric results) [facility] Nitrite,Urine Negative Normal (applies to non-numeric re sults) [facility] ID Date Data Source [id number] 11/14/2019 10:46:00 AM [facility] Name Value Range Interpretation Code Description Data Celeste rce(s) Supporting Document(s) Troponin I 0.000-0.045 Normal (applies to non-numeric resu lts) [facility] ID Date Data Source [id number] 11/14/2019 10:46:00 AM [facility] Name Value Range Interpretation Code Description Data Celeste rce(s) Supporting Document(s) Magnesium 1.80-2.40 Normal (applies to non-numeric resul ts) [facility] ID Date Data Source [id number] 11/14/2019 10:46:00 AM EST [facility] Name Value Range Interpretation Code Description Data Celeste rce(s) Supporting Document(s) Sodium 144 mmol/L 137-145 Normal (applies to non-numeric resul ts) [facility] Potassium 3.5-5.1 Normal (applies to non-numeric resul ts) [facility] Chloride 112 mmol/L 98-112 Normal (applies to non-numeric resul ts) [facility] Carbon Dioxide CO2 22.0-33.0 Normal (applies to non-numer ic results) [facility] Anion Gap 4.0-11.0 Normal (applies to non-numeric resul ts) [facility] BUN 17 mg/dL 9-20 Normal (applies to non-numeric resul ts) [facility] Creatinine 0.80-1.50 Normal (applies to non-numeric resul ts) [facility] GFR >60 Normal (applies to non-numeric results) [facility] Result based on MDRD formula. Glucose Level 65 mg/dL 74-99 Below low normal [facility] The reference range is only applicable w hen fasting. Calcium-Uncorrected 8.4-10.2 Normal (applies to non-nume gaye results) [facility] Corrected Calcium 8.4-10.2 Normal (applies to non-numeri c results) [facility] ID Date Data Source [id number] 11/14/2019 10:19:00 AM EST [facility] Name Value Range Interpretation Code Description Data Celeste rce(s) Supporting Document(s) White Blood Count 4.8-10.8 Normal (applies to non-numeri c results) [facility] Red Blood Count 4.35-6.08 Normal (applies to non-numeric results) [facility] Hemoglobin 13.0-17.5 Normal (applies to non-numeric resul ts) [facility] Hematocrit 37.7-51.0 Normal (applies to non-numeric resul ts) [facility] Mean Corpuscular Volume 80-94 Normal (applies to non- numeric results) [facility] Mean Corpuscular Hemoglobin 27.0-33.0 Normal (appli es to non-numeric results) [facility] Mean Corpuscular HGB Conc 32.0-36.0 Normal (applies to no n-numeric results) [facility] Red Cell Distribution Width 11.5-14.5 Normal (appli es to non-numeric results) [facility] Platelet Count 191 X10 3/uL 130-450 Normal (applies to non-numeric results) [facility] Mean Platelet Volume 9.6-13.1 Below low normal [facility] Imm Grans% (AUTO) 0.0-2.0 Normal (applies to non-numeri c results) [facility] Neutrophils % (AUTO) 43.0-75.0 Normal (applies to non-num dread results) [facility] Lymphocytes % (AUTO) 20.5-45.5 Normal (applies to non-num dread results) [facility] Monocytes % (AUTO) 5.5-11.7 Normal (applies to non-numer ic results) [facility] Eosinophils % (AUTO) 0.7-4.6 Below low normal [facility] Basophils % (AUTO) 0.2-1.2 Normal (applies to non-numer ic results) [facility] Imm Grans# (AUTO) 0.00-0.50 Normal (applies to non-numeri c results) [facility] Neutrophils # (AUTO) 1.90-7.00 Normal (applies to non-num dread results) [facility] Lymphocytes # (AUTO) 1.30-3.10 Normal (applies to non-num dread results) [facility] Monocytes # (AUTO) 0.40-0.70 Normal (applies to non-numer ic results) [facility] Eosinophils# (AUTO) 0.00-0.30 Normal (applies to non-nume gaye results) [facility] Basophils # (AUTO) 0.00-0.10 Normal (applies to non-numer ic results) [facility] ID Date Data Source [id number] 11/14/2019 08:32:00 AM EST [facility] MB if CPK is elevated? Y Name Value Range Interpretation Code Description Data Celeste rce(s) Supporting Document(s) CPK 186 U/L 39-308 Normal (applies to non-numeric resul ts) [facility] ID Date Data Source [id number] 11/14/2019 07:38:00 AM [facility] Name Value Range Interpretation Code Description Data [facility] rce(s) Supporting Document(s) Troponin I 0.000-0.045 Normal (applies to non-numeric resu lts) [facility] ID Date Data Source [id number] 11/13/2019 11:06:00 PM [facility] MB if CPK is elevated? Y MB if CPK is elevated? Y Name Value Range Interpretation Code Description Data [facility] rce(s) Supporting Document(s) Color,Urine Yellow [facility] pital Clarity,Urine Clear Normal (applies to non-numeric re sults) [facility] Specific [place],Urine 1.001-1.030 Normal (applies to non- numeric results) [facility] PH,Urine 5.0-8.0 Normal (applies to non-numeric resul ts) [facility] Protein,Urine Negative [facility] o[facility]ital Glucose,Urine (UA) Negative Normal (applies to non-numer ic results) [facility] Ketones,Urine 15 mg/dL Negative [facility] Blood,Urine Negative [facility] Bilirubin,Urine Negative [facility] Positive Bilirubin is no longer doublech ecked. Bilirubin may be elevated due to urine color interference. Urobilinogen,Urine Norm 0.2-1 Normal (applies to non-numer ic results) [facility] [facility] Leukocyte Esterase,Urine Negative Normal (applies to non -numeric results) [facility] Nitrite,Urine Negative Normal (applies to non-numeric re sults) [facility] ID Date Data Source [id number] 11/13/2019 11:06:00 PM [facility] MB if CPK is elevated? Y MB if CPK is elevated? Y Name Value Range Interpretation Code Description Data [facility] rce(s) Supporting Document(s) RBC,Auto Urine 0-2 Normal (applies to non-numeric r esults) [facility] WBC Urine Auto 0-2 Normal (applies to non-numeric r esults) [facility] Casts,Hyaline,Urine Auto 0-2 Normal (applies to non -numeric results) [facility] Bacteria Urine Auto None Seen Normal (applies to non-nume gaye results) [facility] Epithelial Cell Ur Auto None-Few Normal (applies to non- numeric results) [facility] ID Date Data Source [id number] 11/13/2019 10:59:00 PM [facility] MB if CPK is elevated? Y Name Value Range Interpretation Code Description Data Celeste rce(s) Supporting Document(s) Opiate Screen,Urine Negative Normal (applies to non-nume gaye results) [facility] Barbiturate Screen,Urine Negative Normal (applies to non -numeric results) [facility] Benzodiazepines Scrn,Ur result Negative N ormal (applies to non-numeric results) [facility] Cocaine Screen,Urine Negative [facility] If a positive quantitative confirmation is desired, an additional order must be submitted and the specimen will be sent out to a reference lab. Cannabinoid Screen, Ur Negative [facility] If a positive quantitative confirmation is desired, [...] treatment purposes only. ID Date Data Source [id number] 11/18/2019 08:39:00 PM [facility] Name Value Range Interpretation Code Description Data Celeste rce(s) Supporting Document(s) Blood Culture-Venous [facility] ID Date Data Source [id number] 11/13/2019 09:19:00 PM [facility] MB if CPK is elevated? Y [...] 137-145 Normal (applies to non-numeric resul ts) [facility] Potassium 3.5-5.1 Normal (applies to non-numeric resul ts) [facility] Chloride 108 mmol/L 98-112 Normal (applies to non-numeric resul ts) [facility] Carbon Dioxide CO2 22.0-33.0 Normal (applies to non-numer ic results) [facility] Anion Gap 4.0-11.0 Normal (applies to non-numeric resul ts) [facility] BUN 18 mg/dL 9-20 Normal (applies to non-numeric resul ts) [facility] Creatinine 0.80-1.50 Normal (applies to non-numeric resul ts) [facility] GFR 84 mL/min >60 Normal (applies to non-numeric resul ts) [facility] Result based on MDRD formula. Glucose Level 105 mg/dL 74-99 Above high normal [facility] The reference range is only applicable w hen fasting. Calcium-Uncorrected 8.4-10.2 Normal (applies to non-nume gaye results) [facility] Corrected Calcium 8.4-10.2 Normal (applies to non-numeri c results) [facility] Bilirubin,Total 0.2-1.3 Normal (applies to non-numeric results) [facility] SGOT(AST) 18 U/L 17-59 Normal (applies to non-numeric resul ts) [facility] SGPT(ALT) 29 U/L 21-72 Normal (applies to non-numeric resul ts) [facility] Alkaline Phosphatase 48 U/L 38-126 Normal (applies to non-num dread results) [facility] can increase Alkaline Phosp le vels up to 2 times the normal adult value. Normal values for children and adolescents are 2 to 3 times the normal adult value. Total Protein 6.3-8.2 Normal (applies to non-numeric re sults) [facility] Albumin 3.5-5.0 Normal (applies to non-numeric resul ts) [facility] ID Date Data Source [id number] 11/13/2019 09:19:00 PM [facility] MB if CPK is elevated? Y [...] 39-308 Normal (applies to non-numeric resul ts) [facility] ID Date Data Source [id number] 11/13/2019 09:19:00 PM [facility] MB if CPK is elevated? Y [...] <125 N ormal (applies to non-numeric results) [facility] NT-proBNP values less than 300 pg/mL hav [...] acute congestive failure. ID Date Data Source [id number] 11/13/2019 09:19:00 PM [facility] MB if CPK is elevated? Y [...] Lipase 54 U/L 73-393 Below low normal [facility] ID Date Data Source [id number] 11/13/2019 09:19:00 PM [facility] MB if CPK is elevated? Y [...] 0.0-20.0 Normal (applies to non-numeric resul ts) [facility] ID Date Data Source [id number] 11/13/2019 09:19:00 PM EST [facility] MB if CPK is elevated? Y [...] Supporting Document(s) Acetaminophen 10.0-30.0 Below low normal [facility] ID Date Data Source [id number] 11/13/2019 09:18:00 PM [facility] Name Value Range Interpretation Code Description Data Celeste rce(s) Supporting Document(s) Troponin I 0.000-0.045 Normal (applies to non-numeric resu lts) [facility] ID Date Data Source [id number] 11/13/2019 09:13:00 PM [facility] 3 hour post Lactic if elevated? Y Name Value Range Interpretation Code Description Data Celeste rce(s) Supporting Document(s) Lactic Acid 0.4-2.0 Normal (applies to non-numeric resu lts) [facility] ID Date Data Source [id number] 11/13/2019 09:12:00 PM [facility] MB if CPK is elevated? Y Name Value Range Interpretation Code Description Data Celeste rce(s) Supporting Document(s) Ethanol Less than 10.0 Normal (applies to non-numeric r esults) [facility] ID Date Data Source [id number] 11/13/2019 09:11:00 PM EST [facility] Name Value Range Interpretation Code Description Data Celeste rce(s) Supporting Document(s) PT 9.4-12.5 Above high normal [facility] INR Normal (applies to non-numeric results) [facility] The use of the INR is restricted to silvio ents on stable oral anticoagulant. Therapeutic Range: 2.0-3.0 High Risk Values: 2.5-3.5 ID Date Data Source [id number] 11/13/2019 09:11:00 PM EST [facility] Name Value Range Interpretation Code Description Data Celeste rce(s) Supporting Document(s) PTT 25.1-36.5 Normal (applies to non-numeric resul ts) [facility] ID Date Data Source [id number] 11/13/2019 08:52:00 PM EST [facility] Name Value Range Interpretation Code Description Data Celeste rce(s) Supporting Document(s) White Blood Count 4.8-10.8 Above high normal [facility] Red Blood Count 4.35-6.08 Normal (applies to non-numeric results) [facility] Hemoglobin 13.0-17.5 Normal (applies to non-numeric resul ts) [facility] Hematocrit 37.7-51.0 Normal (applies to non-numeric resul ts) [facility] Mean Corpuscular Volume 80-94 Normal (applies to non- numeric results) [facility] Mean Corpuscular Hemoglobin 27.0-33.0 Normal (appli es to non-numeric results) [facility] Mean Corpuscular HGB Conc 32.0-36.0 Above high normal [facility] Red Cell Distribution Width 11.5-14.5 Normal (appli es to non-numeric results) [facility] Platelet Count 256 X10 3/uL 130-450 Normal (applies to non-numeric results) [facility] Mean Platelet Volume 9.6-13.1 Below low normal [facility] Imm Grans% (AUTO) 0.0-2.0 Normal (applies to non-numeri c results) [facility] Neutrophils % (AUTO) 43.0-75.0 Above high normal [facility] Lymphocytes % (AUTO) 20.5-45.5 Below low normal [facility] Monocytes % (AUTO) 5.5-11.7 Normal (applies to non-numer ic results) [facility] Eosinophils % (AUTO) 0.7-4.6 Below low normal [facility] Basophils % (AUTO) 0.2-1.2 Normal (applies to non-numer ic results) [facility] Imm Grans# (AUTO) 0.00-0.50 Normal (applies to non-numeri c results) [facility] Neutrophils # (AUTO) 1.90-7.00 Above high normal [facility] Lymphocytes # (AUTO) 1.30-3.10 Normal (applies to non-num dread results) [facility] Monocytes # (AUTO) 0.40-0.70 Above high normal [facility] Eosinophils# (AUTO) 0.00-0.30 Normal (applies to non-nume gaye results) [facility] Basophils # (AUTO) 0.00-0.10 Normal (applies to non-numer ic results) [facility] ID Date Data Source [id number] 11/18/2019 09:23:00 PM [facility] Name Value Range Interpretation Code Description Data Celeste rce(s) Supporting Document(s) Blood Culture-Venous [facility] ID Date Data Source [id number] 11/16/2019 10:42:00 AM [facility] Name: [place] GAS[place] : 1985 Age/Sex: 34M Ordering Provider: DO Bernardo Zaidi Rec #: [id number] Reg Status:DIS IN Room #: 250-9 Date of Service: 11/13/19 Report Number: [id number] cc: Tayo Schaefer MD; Yandy Schaefer MD; Marciano Garcia DO Send Report To: SINUS TACHYCARDIA ABNORMAL RHYTHM ECG COMPARED TO PRIOR STUDY 09/23/2019 THERE IS INTERVAL RESOLUTION OF THE T WAVE INVERSION THAT WAS SEEN IN LEAD V3. NO OTHER SIGNIFICANT CHANGES. Physician Program Eligibility Specialist: Simone Echols D.O. 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: IATRICS Name Value Range Interpretation Code Description Data Celeste rce(s) Supporting Document(s) ID Date Data Source [id number] 11/14/2019 06:35:00 AM EST [facility] Name: [place] GASPAR : 1985 Age/Sex: 34M Ordering Provider: Marciano Garcia DO Med Rec #: [id number] Reg Status: DIS IN Room #: 250-9 Date of Service: 11/13/19 Report Number: [id number] cc:Tayo Schaefer MD; Marciano Garcia DO Send Report To: [id number] XRP/XR Chest Xray Portable Reason for exam: [...] 11/16/19800 Dictation Date/Time: 11/13/192044 Transcribed Date/Time: 11/14/19634 Crane Mechanic: KIM Name Value Range Interpretation Code Description Data Celeste rce(s) Supporting Document(s) Procedure Social History Code Duration Value Status Description Data Source(s ) Smoking 10/18/2020 12:00:00 AM EST Current Smoker completed Curre nt Smoker eCW1 ([facility]) Vital Signs ID Date Data Source UNK Name Value Range Interpretation Code Description Data Source(s) Diastolic blood pressure 80 mm[Hg] 80 mm[Hg] eCW1 ([facility]) Systolic blood pressure 118 mm[Hg] 118 mm[Hg] e CW1 ([facility]) Body temperature 97.2 [degF] 97.2 [degF] eCW1 ( [facility]) Respiratory rate 18 /min 18 /min eCW1 ([facility]) Heart rate 71 /min 71 /min eCW1 ([facility]) Body mass index (BMI) [Ratio] 34.40 kg/m2 34.40 kg/m2 eCW1 ([facility]) Body height 69 [in_i] 69 [in_i] eCW1 ([facility]) Body weight 233 [lb_av] 233 [lb_av] eCW1 ([facility]) Body mass index (BMI) [Ratio] 34.0 kg/m2 34.0 k g/m2 MEDENT ([facility]) Body weight 233.00 [lb_av] 233.00 [lb_av] MEDEN T ([facility]) Body height 69.4 [in_i] 69.4 [in_i] MEDENT ([facility]) 5'9.40" Body temperature 97.5 [degF] 97.5 [degF] [facility]ENT ([facility]) Heart rate 80 /min 80 /min MEDENT ([facility]) Diastolic blood pressure 80 mm[Hg] 80 mm[Hg] MEDENT ([facility]) Systolic blood pressure 122 mm[Hg] 122 mm[Hg] M EDENT ([facility]) Body temperature 97.1 [degF] 97.1 [degF] [facility] ([facility]) Heart rate 104 /min 104 /min MEDENT ([facility]) Diastolic blood pressure 60 mm[Hg] 60 mm[Hg] [facility]ENT ([facility]) Systolic blood pressure 114 mm[Hg] 114 mm[Hg] M EDENT ([facility]) Oxygen saturation in Arterial blood by Pulse oximetry 98 % 98 % MEDENT ([facility]) Body mass index (BMI) [Ratio] 33.9 kg/m2 33.9 k g/m2 MEDENT ([facility]) Body weight 232.38 [lb_av] 232.38 [lb_av] MEDEN T ([facility]) Body height 69.4 [in_i] 69.4 [in_i] MEDENT ([facility]) 5'9.40" ID Date Data Source [id number] 11/18/2019 02:40:00 PM [facility] Name Value Range Interpretation Code Description Data Source(s) Weight (Calculated Kilograms) 74.84 74.84 [facility] Height (Calculated Centimeters) 175.26 175. 26 [facility] Body Mass Index (BMI) 24.3 24.3 [facility] ID Date Data Source [id number] 12/09/2019 08:18:00 AM [facility] Name Value Range Interpretation Code Description Data Source(s) Weight Measurement Method 1 1 [facility] Weight (Calculated Kilograms) 74.84 74.84 [facility] Weight 2856.0 2856.0 [facility] Temperature Source 7 7 [facility] Temperature 97.0 97.0 [facility] Respiratory Effort 1 1 [facility] Respiratory Rate 15 15 [facility] Pulse Assessment Method 4 4 [facility] Pulse Rate 62 62 [facility] Height (Calculated Centimeters) 175.26 175. 26 [facility] Height 69 69 [facility] Blood Pressure 110/69 110/69 [facility] Body Mass Index (BMI) 24.3 24.3 [facility] Weight Measurement Method 1 1 [facility] Weight (Calculated Kilograms) 74.84 74.84 [facility] Weight 2856.0 2856.0 [facility] Temperature Source 7 7 [facility] Temperature 97.0 97.0 [facility] Respiratory Effort 1 1 [facility] Respiratory Rate 15 15 [facility] Pulse Assessment Method 4 4 [facility] Pulse Rate 62 62 [facility] Height (Calculated Centimeters) 175.26 175. 26 [facility] Height 69 69 [facility] Blood Pressure 110/69 110/69 [facility] Body Mass Index (BMI) 24.3 24.3 [facility] Weight Measurement Method 1 1 [facility] Weight (Calculated Kilograms) 74.84 74.84 [facility] Weight 2856.0 2856.0 [facility] Temperature Source 7 7 [facility] Temperature 97.0 97.0 [facility] Respiratory Effort 1 1 [facility] Respiratory Rate 15 15 [facility] Pulse Assessment Method 4 4 [facility] Pulse Rate 62 62 [facility] Height (Calculated Centimeters) 175.26 175. 26 [facility] Height 69 69 [facility] Blood Pressure 110/69 110/69 [facility] Body Mass Index (BMI) 24.3 24.3 [facility] Weight Measurement Method 1 1 [facility] Weight (Calculated Kilograms) 74.84 74.84 [facility] Weight 2672 2672 [facility] Temperature Source 7 7 [facility] Temperature 97.1 97.1 [facility] Respiratory Effort 1 1 [facility] Respiratory Rate 16 16 [facility] Pulse Assessment Method 4 4 [facility] Pulse Rate 97 97 [facility] Height (Calculated Centimeters) 175.26 175. 26 [facility] Height 69 69 [facility] Blood Pressure 138/84 138/84 [facility] Body Mass Index (BMI) 24.3 24.3 [facility] Weight Measurement Method 7 7 [facility] Weight (Calculated Kilograms) 74.84 74.84 [facility] Weight 2640 2640 [facility] Temperature Source 7 7 [facility] Temperature 97.3 97.3 [facility] Respiratory Effort 1 1 [facility] Respiratory Rate 16 16 [facility] Pulse Assessment Method 4 4 [facility] Pulse Rate 81 81 [facility] Height (Calculated Centimeters) 175.26 175. 26 [facility] Height 69 69 [facility] Blood Pressure 127/79 127/79 [facility] Body Mass Index (BMI) 24.3 24.3 [facility] Weight Measurement Method 7 7 [facility] Weight (Calculated Kilograms) 74.84 74.84 [facility] Weight 2640 2640 [facility] Temperature Source 7 7 [facility] Temperature 97.3 97.3 [facility] Respiratory Effort 1 1 [facility] Respiratory Rate 16 16 [facility] Pulse Assessment Method 4 4 [facility] Pulse Rate 65 65 [facility] Height (Calculated Centimeters) 175.26 175. 26 [facility] Height 69 69 [facility] Blood Pressure 112/73 112/73 [facility] Body Mass Index (BMI) 24.3 24.3 [facility] Weight (Calculated Kilograms) 66.68 66.68 [facility] Height (Calculated Centimeters) 175.26 175. 26 [facility] Body Mass Index (BMI) 21.7 21.7 [facility] ID Date Data Source [id number] 11/16/2019 01:55:00 PM EST [facility] Name Value Range Interpretation Code Description Data Source(s) Weight (Calculated Kilograms) 66.68 66.68 [facility] Height (Calculated Centimeters) 175.26 175. 26 [facility] Body Mass Index (BMI) 21.7 21.7 [facility] ID Date Data Source [id number] 11/26/2019 10:04:00 AM EST [facility] Name Value Range Interpretation Code Description Data Source(s) Weight Measurement Method 1 1 [facility] Weight (Calculated Kilograms) 72.03 72.03 [facility] Weight 2540.8 2540.8 [facility] pital Temperature Source 7 7 [facility] Temperature 98.2 98.2 [facility] Res[facility] Effort 1 1 [facility] Respiratory Rate 18 18 [facility] Pulse Assessment Method 4 4 [facility] Pulse Rate 75 75 [facility] pital Height (Calculated Centimeters) 175.26 175. 26 [facility] Height 69 69 [facility] 112/78 112/78 [facility] Body Mass Index (BMI) 23.[address] Weight Measurement Method 1 1 [facility] Weight (Calculated Kilograms) 72.03 72.03 [facility] Weight 2540.8 2540.8 [facility] pital Temperature Source 7 7 [facility] Temperature 98.2 98.2 [facility] spital Respiratory Effort 1 1 [facility] Respiratory Rate 18 18 [facility] Pulse Assessment Method 4 4 [facility] Pulse Rate 75 75 [facility] pital Height (Calculated Centimeters) 175.26 175. 26 [facility] Height 69 69 [facility] pital Blood Pressure 112/78 112/78 [facility] Body Mass Index (BMI) 23.4 234 [facility] Weight Measurement Method 1 1 [facility] Weight (Calculated Kilograms) 72.03 72.03 [facility] Weight 2540.8 2540.8 [facility] pital Temperature Source 7 7 [facility] Temperature 98.2 98.2 [facility] Respiratory Effort 1 1 [facility] Respiratory Rate 18 18 [facility] Pulse Assessment Method 4 4 [facility] Pulse Rate 75 75 [facility] pital Height (Calculated Centimeters) 175.26 175. 26 [facility] Height 69 69 [facility] pital Blood Pressure 112/78 112/78 [facility] Body Mass Index (BMI) 23.4 23.4 [facility] Weight Measurement Method 1 1 [facility] Weight (Calculated Kilograms) 72.03 72.03 [facility] Weight 2540.8 2540.8 [facility] pital Temperature Source 7 7 [facility] Temperature 97.5 97.5 [facility] Respiratory Effort 1 1 [facility] Respiratory Rate 18 18 [facility] Pulse Assessment Method 4 4 [facility] Pulse Rate 81 81 [facility] pital Height (Calculated Centimeters) 175.26 175. 26 [facility] Height 69 69 [facility] 115/77 115/77 [facility] Body Mass Index (BMI) 23.4 23.4 [facility] Weight Measurement Method 1 1 [facility] Weight (Calculated Kilograms) 72.03 72.03 [facility] Weight 2540.8 2540.8 [facility] pital Temperature Source 7 7 [facility] Temperature 97.9 97.9 [facility] spital Respiratory Effort 1 1 [facility] Respiratory Rate 20 20 [facility] Pulse Assessment Method 4 4 [facility] Pulse Rate 73 73 [facility] pital Height (Calculated Centimeters) 175.26 175. 26 [facility] Height 69 69 [facility] Pressure 130/84 130/84 [facility] Body Mass Index (BMI) 23.4 23.4 [facility] Weight Measurement Method 1 1 [facility] Weight (Calculated Kilograms) 72.03 72.03 [facility] Weight 2540.8 2540.8 [facility] pital Temperature Source 1 1 [facility] Temperature 99.4 99.4 [facility] spital Respiratory Effort 1 1 [facility] Respiratory Rate 16 16 [facility] Pulse Assessment Method 4 4 [facility] Pulse Rate 74 74 [facility] pital Height (Calculated Centimeters) 175.26 175. 26 [facility] Height 69 69 [facility] Blood Pressure 117/76 117/76 [facility] Body Mass Index (BMI) 23.4 23.4 [facility] Weight (Calculated Kilograms) 70.31 70.31 [facility] Height (Calculated Centimeters) 175.26 175. 26 [facility] Body Mass Index (BMI) 22.8 22.8 [facility] ID Date Data Source [id number] 11/26/2019 10:04:00 AM EST [facility] Name Value Range Interpretation Code Description Data Source(s) Weight Measurement Method 1 1 [facility] Weight (Calculated Kilograms) 66.68 66.68 [facility] Weight 2544.0 2544.0 [facility] Temperature Source 7 7 [facility] Temperature 98.4 98.4 [facility] Respiratory Effort 1 1 [facility] Respiratory Rate 17 17 [facility] Pulse Assessment Method 4 4 [facility] Pulse Rate 66 66 [facility] Height (Calculated Centimeters) 175.26 175. 26 [facility] Blood Pressure 108/66 108/66 [facility] Body Mass Index (BMI) 21.7 21.7 [facility] Weight Measurement Method 1 1 [facility] Weight (Calculated Kilograms) 66.68 66.68 [facility] Weight 2544.0 2544.0 [facility] Temperature Source 7 7 [facility] Temperature 98.4 98.4 [facility] Respiratory Effort 1 1 [facility] Respiratory Rate 17 17 [facility] Pulse Assessment Method 4 4 [facility] Pulse Rate 66 66 [facility] Height (Calculated Centimeters) 175.26 175. 26 [facility] Blood Pressure 108/66 108/66 [facility] Body Mass Index (BMI) 21.7 21.7 [facility] Weight (Calculated Kilograms) 66.68 66.68 [facility] Height (Calculated Centimeters) 175.26 175. 26 [facility] Body Mass Index (BMI) 21.7 21.7 [facility] Weight (Calculated Kilograms) 66.68 66.68 [facility] Height (Calculated Centimeters) 175.26 175. 26 [facility] Body Mass Index (BMI) 21.7 21.7 [facility] Weight (Calculated Kilograms) 66.68 66.68 [facility] Height (Calculated Centimeters) 175.26 175. 26 [facility] Body Mass Index (BMI) 21.7 21.7 [facility] Weight (Calculated Kilograms) 66.68 66.68 [facility] Height (Calculated Centimeters) 175.26 175. 26 [facility] Body Mass Index (BMI) 21.7 21.7 [facility] Weight (Calculated Kilograms) 66.68 66.68 [facility] Height (Calculated Centimeters) 175.26 175. 26 [facility] Body Mass Index (BMI) 21.7 21.7 [facility] ID Date Data Source [id number] 11/26/2019 10:04:00 AM EST [facility] spital Name Value Range Interpretation Code Description Data Source(s) Weight Measurement Method 1 1 [facility] Weight (Calculated Kilograms) 70.31 70.31 [facility] 2480 [facility]80 [facility] 1 1 [facility] Temperature 97.3 97.3 [facility] Respiratory Effort 1 1 [facility] Respiratory Rate 16 16 [facility] Pulse Assessment Method 4 4 [facility] Pulse Rate 80 80 [facility] Height (Calculated Centimeters) 175.26 175. 26 [facility] Height 69 69 [facility] Blood Pressure 112/74 112/74 [facility] Body Mass Index (BMI) 22.8 22.8 [facility] Weight Measurement Method 1 1 [facility] Weight (Calculated Kilograms) 70.31 70.31 [facility] Weight 2480 2480 [facility] pital Temperature Source 1 1 [facility] Temperature 97.3 97.3 [facility] spital Respiratory Effort 1 1 [facility] Respiratory Rate 16 16 [facility] Pulse Assessment Method 4 4 [facility] Pulse Rate 80 80 [facility] pital Height (Calculated Centimeters) 175.26 175. 26 [facility] 69 [facility] Pressure 112/74 112/74 [facility] Body Mass Index (BMI) 22.8 22.8 [facility] Weight Measurement Method 1 1 [facility] Weight (Calculated Kilograms) 70.31 70.31 [facility] Weight 2480 2480 [facility] pital Temperature Source 1 1 [facility] Temperature 97.3 97.3 [facility] spital Respiratory Effort 1 1 [facility] Respiratory Rate 16 16 [facility] Pulse Assessment Method 4 4 [facility] Pulse Rate 80 80 [facility] pital Height (Calculated Centimeters) 175.26 175. 26 [facility] 69 69 [facility] 112/74 112/74 [facility] Body Mass Index (BMI) 22.8 228 [facility] ID Date Data Source [id number] 11/26/2019 10:04:00 AM EST [facility] Hospital Name Value Range Interpretation Code Description Data Source(s) Weight (Calculated Kilograms) 66.[address] Height (Calculated Centimeters) 175.26 175. 26 [facility] Body Mass Index (BMI) 21.7 21.7 [facility] Weight (Calculated Kilograms) 66.68 66.68 [facility] Height (Calculated Centimeters) 175.26 175. 26 [facility] Body Mass Index (BMI) 21.7 21.7 [facility] Weight (Calculated Kilograms) 66.68 66.68 [facility] Height (Calculated Centimeters) 175.26 175. 26 [facility] Body Mass Index (BMI) 21.7 21.7 [facility] Weight (Calculated Kilograms) 66.68 66.68 [facility] Height (Calculated Centimeters) 175.26 175. 26 [facility] Body Mass Index (BMI) 21.7 21.7 [facility] Patient Treatment Plan of Care Planned Activity Planned Date Details Description Data Source (s) doxycycline hyclate 100 MG Oral Capsule 10/18/2020 12:00:00 AM EST [email or web address] ([facility]) Colchicine 0.5 MG / Probenecid 500 MG Oral Tablet 10/18/2020 12: 00:00 AM EST [email or web address] ([facility])
[2020-12-30] MEDS ORDERED: PROPRANOLOL 20 MG TAB PO ONE (23:00)
[2020-12-30] MEDS ORDERED: LORazepam 2 MG TAB PO STA (23:00)
[2020-12-30 23:25] LABS: HEMATOCRIT 48.9 % (42.0-52.0); HEMOGLOBIN 16.8 g/dl (13.5-17.5); MEAN CORPUSCULAR HEMOGLOBIN 29.3 pg (27.0-33.0); MEAN CORPUSCULAR HGB CONC 34.4 g/dl (32.0-36.5); MEAN CORPUSCULAR VOLUME 85.2 fl (80.0-96.0); PLATELET COUNT, AUTOMATED 230 10^3/uL (150-450); RED BLOOD COUNT 5.74 10^6/uL (4.30-6.10); WHITE BLOOD COUNT 9.4 10^3/uL (4.0-10.0)
[2020-12-31 00:06] LABS: ACETAMINOPHEN LEVEL < 2.0 UG/ML (10.0-30.0); ALBUMIN 3.7 GM/DL (3.2-5.2); ALT/SGPT 61 U/L (12-78); BILIRUBIN,DIRECT 0.2 MG/DL (0.0-0.2); BILIRUBIN,TOTAL 0.6 MG/DL (0.2-1.0); BLOOD UREA NITROGEN 7 MG/DL (7-18); CALCIUM LEVEL 8.9 MG/DL (8.5-10.1); CARBON DIOXIDE LEVEL 25 MEQ/L (21-32); CHLORIDE LEVEL 108 MEQ/L (98-107); CREATININE FOR GFR 1.06 MG/DL (0.70-1.30); ETHYL ALCOHOL (ETHANOL) < 0.003 % (0.000-0.010); GLOMERULAR FILTRATION RATE > 60.0 (>60); GLUCOSE, FASTING 92 MG/DL (70-100); POTASSIUM SERUM 3.7 MEQ/L (3.5-5.1); SALICYLATE LEVEL < 1.7 MG/DL (5.0-30.0); SODIUM LEVEL 142 MEQ/L (136-145); THYROID STIMULATING HORMONE 0.275 uIU/ML (0.358-3.740); TOTAL PROTEIN 7.7 GM/DL (6.4-8.2)
[2020-12-31 01:05] LABS: AMPHETAMINES LEVEL URINE NEGATIVE (NEGATIVE); BARBITURATES URINE NEGATIVE (NEGATIVE); BENZODIAZEPINES URINE NEGATIVE (NEGATIVE); CANNABINOIDS URINE NEGATIVE (NEGATIVE); COCAINE METABOLITE URINE NEGATIVE (NEGATIVE); METHADONE URINE NEGATIVE (NEGATIVE); OPIATES URINE NEGATIVE (NEGATIVE); PHENCYCLIDINE URINE NEGATIVE (NEGATIVE)
--- OUTSIDE RECORDS SUMMARY | 2020-12-31 01:11 | CCD ---
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 worried about losing your housing? NoMoney and Resources What is the highest level of school that you have finished? high school graduate Employed? No Are you seeking work? No Insurance: Managed Care [facility] Community PlanIn the past year, have you or any family members you live with been unable to get any of the following when it was really needed? 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 No Has [...] you a refugee? Yes (Country of origin: [place] [place] [place] [place]) Do you feel physically and emotionally safe [...] establish care. pt is on methadone through [facility]. pt states he has no concerns he [...] like probiotics. pt does see counselor at [facility]. pt does complain of back pain. pt's heart is good, lungs are clear. DO will manipulate. Problem ReviewProblem List was reviewed and/or updated during this visit.Medication Reconciliation & ReviewMedication List was reviewed and/or updated during this visit, including review of any fmlt-zca-fwpjrky medications, herbal therapies, and/or supplements.Allergy ReviewAllergy List [...] GoodAssessment & Plan Problems:Added: Chronic constipation (ICD-564.09) (JBL43-X80.09)Gastro-esophageal reflux disease without esophagitis (CQZ09-F41.9) Assessment: start protonixAcute low back pain (ICD-724.2) (RYS80-M89.5) Assessment: OMT done w/resolution of painAssessment not SavedChronic constipation (CJZ22-B10.09): substitute lactulose (less dependency on colace)Medications:PROTONIX 40 [...] MG ORAL CAPSULENew Prescription:ENULOSE 10 GM/15ML ORAL TMGHZMKR-8-1 tbsp po BID prn constipation Qty: 1[Pint] Refills: 5 Method: ElectronicPROTONIX 40 MG O RAL TABLET DELAYED RELEASE-i tab po QD Qty: 30[Tablet] Refills: 5 Method: ElectronicAllergies:No Known Allergies (updated 12/23/2019) Orders:Adult - Ofc Vst, NEW, Level III [CPT-41952] Medications:PROTONIX 40 MG ORAL TABLET DELAYED RELEASE (PANTOPRAZOLE SODIUM) i tab po QD #30[Tablet] x 5 Route:ORAL Entered and Authorized by: Adeel Villegas DO Method used: Electronically to [facility]* (retail) [address] [place] [address] Note to Pharmacy: Route: ORAL; RxID: [id number] 10 GM/15ML ORAL SOLUTION (LACTULOSE ENCEPHALOPATHY) 1-2 tbsp po BID prn constipation #1[Pint] x 5 Route:ORAL Entered and Authorized by: Adeel Villegas DO Method used: Electronically to [facility]* (retail) [address] [place] [address] Note to Pharmacy: Route: ORAL; RxID: [id number]][Immunization Management] Name Value Range Interpretation Code Description Data Celeste rce(s) Supporting Document(s) ID Date Data Source [id number] 12/23/2019 07:34:03 AM [facility] Current Problems: Fractured dental kayla rative material with loss of material (ICD-525.64) (IZU86-G62.531)Problem list reviewed during this update.No known problems.Medication [...] restorative material with loss of material (ICD-525.64) (GCB04-G87.531)Allergies:No Known Allergies (updated 12/23/2019) Name Value Range Interpretation Code Description Data Celeste rce(s) Supporting Document(s) ID Date Data Source [id number] 12/22/2019 02:09:38 PM [facility] Problem list reviewed during this update .No [...] rce(s) Supporting Document(s) ID Date Data Source [id number] 12/01/2019 02:11:00 PM EST [facility] Name Value Range Interpretation Code Description Data Celeste rce(s) Supporting Document(s) Buprenorphine+Nor QL,Urine . Very abnormal (appli es to non-numeric units [facility] Confirmation performed by Mass Spectrome try Buprenorphine QL,Ur Confirm . Very abnormal (appl ies to non-numeric units [facility] Buprenorphine Qnt,Ur Confirm 68 ng/mL Cutoff=10 Nor mal (applies to non-numeric results) [facility] Norbuprenorphine QL,Ur Cfm . Very abnormal (appli es to non-numeric units [facility] Norbuprenorphine Qnt,Ur Cfm 204 ng/mL Cutoff=10 Norm al (applies to non-numeric results) [facility] Performed at: [facility] [address] [place] [address] [id number] Letterer: Carmen Dodd MD, Phone: [phone] ID Date Data Source [id number] 11/23/2019 01:03:00 PM EST [facility] Name Value Range Interpretation Code Description Data Celeste rce(s) Supporting Document(s) Opiate Screen,Urine Negative Normal (applies to non-nume gaye results) [facility] Amphetamine Screen,Urine Negative Normal (applies to non -numeric results) [facility] Benzodiazepines Scrn,Ur result Negative N ormal (applies to non-numeric results) [facility] Cocaine Screen,Urine Negative Normal (applies to non-num dread results) [facility] Methadone Screen,Urine Negative Normal (applies to non-n umeric results) [facility] Cannabinoid Screen, Ur Negative Normal (applies to non-n umeric results) [facility] Therapeutic Drug Ranges for Emergency an [...] treatment purposes only. ID Date Data Source [id number] 11/23/2019 12:58:00 PM [facility] Name Value Range Interpretation Code Description Data Celeste rce(s) Supporting Document(s) Bupren Scrn,Ur wRfx LCI SO res Negative [facility] This specimen will be sent [facility] to a [facility] for confirmation of positive result. ID Date Data Source [id number] 11/19/2019 03:33:00 PM EST [facility] Name Value Range Interpretation Code Description Data Celeste rce(s) Supporting Document(s) Hepatitis A Ab,IgM result Negative Normal (applies to no n-numeric results) [facility] Result does not exclude the possibility of exposure to hepatitis A virus. Antibody level during early infection stage may be below the limit of detection of the assay. Test Performed by: [address] [address] Letterer: Serafin Lebron M.D. Ph.D.; CLIA# [id number] ID Date Data Source [id number] 11/18/2019 12:45:00 PM EST [facility] Name Value Range Interpretation Code Description Data Celeste rce(s) Supporting Document(s) Sodium 136 mmol/L 137-145 Below low normal [facility] Potassium 3.5-5.1 Normal (applies to non-numeric resul ts) [facility] Chloride 100 mmol/L 98-112 Normal (applies to non-numeric resul ts) [facility] Carbon Dioxide CO2 22.0-33.0 Normal (applies to non-numer ic results) [facility] Anion Gap 4.0-11.0 Normal (applies to non-numeric resul ts) [facility] BUN 19 mg/dL 9-20 Normal (applies to non-numeric resul ts) [facility] Creatinine 0.80-1.50 Normal (applies to non-numeric resul ts) [facility] GFR >60 Normal (applies to non-numeric results) [facility] Result based on MDRD formula. Glucose Level 111 mg/dL 74-99 Above high normal [facility] The reference range is only applicable w hen fasting. Calcium-Uncorrected 8.4-10.2 Normal (applies to non-nume gaye results) [facility] Corrected Calcium 8.4-10.2 Normal (applies to non-numeri c results) [facility] Bilirubin,Total 0.2-1.3 Normal (applies to non-numeric results) [facility] Bilirubin,Direct 0.0-0.3 Normal (applies to non-numeric results) [facility] SGOT(AST) 25 U/L 17-59 Normal (applies to non-numeric resul ts) [facility] SGPT(ALT) 35 U/L 21-72 Normal (applies to non-numeric resul ts) [facility] Alkaline Phosphatase 59 U/L 38-126 Normal (applies to non-num dread results) [facility] can increase Alkaline Phosp le vels up to 2 times the normal adult value. Normal values for children and adolescents are 2 to 3 times the normal adult value. CPK 88 U/L 39-308 Normal (applies to non-numeric resul ts) [facility] Total Protein 6.3-8.2 Normal (applies to non-numeric re sults) [facility] Albumin 3.5-5.0 Normal (applies to non-numeric resul ts) [facility] Thyroid Stimulate Hormone TSH 0.358-3.740 No rmal (applies to non-numeric results) [facility] ID Date Data Source [id number] 11/18/2019 12:46:00 PM [facility] Name Value Range Interpretation Code Description Data Celeste rce(s) Supporting Document(s) Magnesium 1.80-2.40 Above high normal [facility] ID Date Data Source [id number] 11/18/2019 12:46:00 PM [facility] Name Value Range Interpretation Code Description Data Celeste rce(s) Supporting Document(s) C-Reactive Protein,Wide Range <3.00 Normal (applies t o non-numeric results) [facility] ID Date Data Source [id number] 11/18/2019 12:40:00 PM [facility] Name Value Range Interpretation Code Description Data Celeste rce(s) Supporting Document(s) Vitamin D,Total (25OH) 30.0-100.0 Below low normal [facility] Reference Range: <10 ng/mL: Deficien t 10-30 ng/mL: Insufficient 30-100 ng/mL: Sufficient >100 ng/mL: Toxicity possible ID Date Data Source [id number] 11/18/2019 12:06:00 PM [facility] Name Value Range Interpretation Code Description Data Celeste rce(s) Supporting Document(s) White Blood Count 4.8-10.8 Normal (applies to non-numeri c results) [facility] Red Blood Count 4.35-6.08 Normal (applies to non-numeric results) [facility] Hemoglobin 13.0-17.5 Normal (applies to non-numeric resul ts) [facility] Hematocrit 37.7-51.0 Normal (applies to non-numeric resul ts) [facility] Mean Corpuscular Volume 80-94 Normal (applies to non- numeric results) [facility] Mean Corpuscular Hemoglobin 27.0-33.0 Normal (appli es to non-numeric results) [facility] Mean Corpuscular HGB Conc 32.0-36.0 Normal (applies to no n-numeric results) [facility] Red Cell Distribution Width 11.5-14.5 Normal (appli es to non-numeric results) [facility] Platelet Count 259 X10 3/uL 130-450 Normal (applies to non-numeric results) [facility] Mean Platelet Volume 9.6-13.1 Normal (applies to non-num dread results) [facility] Imm Grans% (AUTO) 0.0-2.0 Normal (applies to non-numeri c results) [facility] Neutrophils % (AUTO) 43.0-75.0 Normal (applies to non-num dread results) [facility] Lymphocytes % (AUTO) 20.5-45.5 Normal (applies to non-num dread results) [facility] Monocytes % (AUTO) 5.5-11.7 Normal (applies to non-numer ic results) [facility] Eosinophils % (AUTO) 0.7-4.6 Normal (applies to non-num dread results) [facility] Basophils % (AUTO) 0.2-1.2 Normal (applies to non-numer ic results) [facility] Imm Grans# (AUTO) 0.00-0.50 Normal (applies to non-numeri c results) [facility] Neutrophils # (AUTO) 1.90-7.00 Normal (applies to non-num dread results) [facility] Lymphocytes # (AUTO) 1.30-3.10 Normal (applies to non-num dread results) [facility] Monocytes # (AUTO) 0.40-0.70 Above high normal [facility] Eosinophils# (AUTO) 0.00-0.30 Normal (applies to non-nume gaye results) [facility] Basophils # (AUTO) 0.00-0.10 Normal (applies to non-numer ic results) [facility] ID Date Data Source [id number] 11/17/2019 07:17:00 PM EST [facility] Name Value Range Interpretation Code Description Data Celeste rce(s) Supporting Document(s) Opiate Screen,Urine Negative Normal (applies to non-nume gaye results) [facility] Amphetamine Screen,Urine Negative Normal (applies to non -numeric results) [facility] Benzodiazepines Scrn,Ur result Negative N ormal (applies to non-numeric results) [facility] Cocaine Screen,Urine Negative Normal (applies to non-num dread results) [facility] Methadone Screen,Urine Negative Normal (applies to non-n umeric results) [facility] Cannabinoid Screen, Ur Negative Normal (applies to non-n umeric results) [facility] Therapeutic Drug Ranges for Emergency an [...] treatment purposes only. ID Date Data Source [id number] 11/17/2019 07:09:00 PM EST [facility] Name Value Range Interpretation Code Description Data Celeste rce(s) Supporting Document(s) Color,Urine Yellow Normal (applies to non-numeric resu lts) [facility] Clarity,Urine Clear [facility] ospital Specific [place],Urine 1.001-1.030 Normal (applies to non- numeric results) [facility] PH,Urine 5.0-8.0 [facility] Protein,Urine Negative Normal (applies to non-numeric re sults) [facility] Glucose,Urine (UA) Negative Normal (applies to non-numer ic results) [facility] Ketones,Urine Negative Normal (applies to non-numeric re sults) [facility] Blood,Urine Negative Normal (applies to non-numeric resu lts) [facility] Bilirubin,Urine Negative Normal (applies to non-numeric results) [facility] Urobilinogen,Urine Norm 0.2-1 Normal (applies to non-numer ic results) [facility] Leukocyte Esterase,Urine Negative Normal (applies to non -numeric results) [facility] Nitrite,Urine Negative Normal (applies to non-numeric re sults) [facility] ID Date Data Source [id number] 11/16/2019 06:54:00 AM EST [facility] Name Value Range Interpretation Code Description Data Celeste rce(s) Supporting Document(s) Sodium 142 mmol/L 136-145 Normal (applies to non-numeric resul ts) [facility] Potassium 3.5-5.1 Normal (applies to non-numeric resul ts) [facility] Chloride 102 mmol/L 98-107 Normal (applies to non-numeric resul ts) [facility] Carbon Dioxide CO2 21-32 Above high normal [facility] Anion Gap 5.0-16.0 Normal (applies to non-numeric resul ts) [facility] BUN 12 mg/dL 7-18 Normal (applies to non-numeric results) [facility] Creatinine,Serum 0.8-1.5 Normal (applies to non-numeric results) [facility] GFR >60 Normal (applies to non-numeric results) [facility] Glucose Level 98 mg/dL 60-99 Normal (applies to non-numeric re sults) [facility] Reference range is only applicable when patient is fasting Note the following drug interference: Sulfasalazine Sulfapyridine Can see falsely depressed Can see falsely elevated result with up to 17% results with up to 11% decrease in measurement increase in measurement Recommend patients be collected for this test prior to administration of either drug. Calcium 8.5-10.1 Normal (applies to non-numeric resul ts) [facility] Bilirubin,Total 0.1-1.9 Normal (applies to non-numeric results) [facility] SGOT(AST) 8 U/L 15-37 Below low normal [facility] [place] Note the following drug interference: Sulfasalazine Sulfapyridine Can see falsely depressed Can see falsely elevated result with up to 10% results with up to 10% decrease in measurement increase in measurement Recommend patients be collected for this test prior to administration of either drug. SGPT(ALT) 23 U/L 12-78 Normal (applies to non-numeric resul ts) [facility] Note the following drug interference: Sulfasalazine Sulfapyridine Can see falsely depressed Can see falsely elevated result with up to 29% results with up to 10% decrease in measurement increase in measurement Recommend patients be collected for this test prior to administration of either drug. Alkaline Phosphatase 70 U/L 38-126 Normal (applies to non-num dread results) [facility] can increase Alkaline Phosp le vels up to 2 times the normal adult value. Normal values for children and adolescents are 2 to 3 times the normal adult value. Total Protein 6.0-8.2 Normal (applies to non-numeric re sults) [facility] Albumin Level 3.4-5.0 Below low normal [facility] ID Date Data Source [id number] 11/18/2019 02:42:00 PM [facility] Name Value Range Interpretation Code Description Data Celeste rce(s) Supporting Document(s) HIV Screen result Nonreactive Normal (applies to non-numer ic results) [facility] Test Performed By: [facility] [address] [place] [address] Director: Lacho Henriquez MD ID Date Data Source [id number] 11/18/2019 02:40:00 PM [facility] Name Value Range Interpretation Code Description Data Celeste rce(s) Supporting Document(s) HIV 1/2 Ab p24 Ag Screen Nonreactive Normal (applies to non-numeric results) [facility] Test Performed By: [facility] [address] [place] [address] Director: Lacho Henriquez MD ID Date Data Source [id number] 11/15/2019 02:48:00 PM [facility] Name Value Range Interpretation Code Description Data Celeste rce(s) Supporting Document(s) Sodium 141 mmol/L 136-145 Normal (applies to non-numeric resul ts) [facility] Potassium 3.5-5.1 Normal (applies to non-numeric resul ts) [facility] Chloride 104 mmol/L 98-107 Normal (applies to non-numeric resul ts) [facility] Carbon Dioxide CO2 21-32 Above high normal [facility] Anion Gap 5.0-16.0 Below low normal [facility] BUN 10 mg/dL 7-18 Normal (applies to non-numeric results) [facility] Creatinine,Serum 0.8-1.5 Normal (applies to non-numeric results) [facility] GFR >60 Normal (applies to non-numeric results) [facility] Glucose Level 109 mg/dL 60-99 Above high normal [facility] Reference range is only applicable when patient is fasting Note the following drug interference: Sulfasalazine Sulfapyridine Can see falsely depressed Can see falsely elevated result with up to 17% results with up to 11% decrease in measurement increase in measurement Recommend patients be collected for this test prior to administration of either drug. Calcium 8.5-10.1 Normal (applies to non-numeric resul ts) [facility] Bilirubin,Total 0.1-1.9 Normal (applies to non-numeric results) [facility] SGOT(AST) 11 U/L 15-37 Below low normal [facility] Note the following drug interference: Sulfasalazine Sulfapyridine Can see falsely depressed Can see falsely elevated result with up to 10% results with up to 10% decrease in measurement increase in measurement Recommend patients be collected for this test prior to administration of either drug. SGPT(ALT) 26 U/L 12-78 Normal (applies to non-numeric resul ts) [facility] Note the following drug interference: Sulfasalazine Sulfapyridine Can see falsely depressed Can see falsely elevated result with up to 29% results with up to 10% decrease in measurement increase in measurement Recommend patients be collected for this test prior to administration of either drug. Alkaline Phosphatase 62 U/L 38-126 Normal (applies to non-num dread results) [facility] can increase Alkaline Phosp le vels up to 2 times the normal adult value. Normal values for children and adolescents are 2 to 3 times the normal adult value. Total Protein 6.0-8.2 Normal (applies to non-numeric re sults) [facility] Albumin Level 3.4-5.0 Normal (applies to non-numeric re sults) [facility] ID Date Data Source [id number] 11/13/2019 07:47:00 PM [facility] Name: AFRICA GASPAR Med Rec #: [id number] : 1985 Age/Sex: 34M Date of Service: 11/13/19 PHYSICIAN CHART Physician Documentation [facility] Name: Africa Gaspar Age: 34 yrs [...] He denies delusions, hallucinations and intent at [facility] self-harm.. Historical: - Allergies: No [...] smoker (>10 cigarettes a day). Preferred Language: Italian. ROS: 20:31 Constitutional: Negative for fever. Head [...] ECG on this patient demonstrates Other Normal [facility] sinus rhythm, rate 112, normal [...] 19:54 Order name: Lipase; Complete Time: 21:[address] [facility] 11/13 21:29 Interpretation: LIP 54. [facility] 11/13 19:54 Order name: Partial Thromboplastin Time; Complete Time: 3 21:29 11/13 21:30 Interpretation: PTT 29.2. [facility] 11/13 19:54 Order name: Prothrombin Time; Complete Time: 21:[address] [facility] 11/13 21:29 Interpretation: PT 13.8; INR 1.20. [facility] 11/13 19:54 Order name: Troponin I; Complete Time: 21:[address] [facility] 11/13 21:30 Interpretation: TROP I < 0.045. [facility] 11/13 19:54 Order name: CPK; Complete Time: 21:[address] [facility] 11/13 21:30 Interpretation: CPK 178. [facility] 11/13 19:54 Order name: Acetaminophen Level; Complete Time: 21:[address] [facility] 11/13 21:30 Interpretation: Aceta < 2.[address]. [facility] 11/13 19:54 Order name: ETOH; Complete Time: 21:[address] [facility] 11/13 21:30 Interpretation: ETOH < 3.0. [facility] 11/13 19:54 Order name: Salicylate; Complete Time: 21:[address] [facility] 11/13 21:30 Interpretation: GWENDOLYN 2.6. [facility] 11/13 19:54 Order name: UDS; Complete Time: 00:[address] [facility] 11/14 00:05 Interpretation: U Opiate Screen Negative; U Janine Screen rc3 Negative; U [place] Screen Negative; Ur Lolis Screen Positive; Ur Cannab Scr Positive. 11/13 19:54 Order name: UA.; Complete Time: 00:[address] [facility] 11/14 00:05 Interpretation: Ur Color Corinna; Ur Clarity Clear; Ur Spec rc3 gravity 1.030; Ur PH 5.5; Ur Protein 1+ 30; Ur Glucose Negative; Ur Ketones 15; Ur Blood Small; Ur Bilirubin Small; Ur Urobilinogen 1.0; Ur Leuk Est Negative; Ur Nitrite Negative. 11/13 19:57 Order name: Blood Culture - Venous 3 11/13 19:54 Order name: CXR Portable (Chest Pain) [facility] 11/13 19:54 Order name: Emergency Room EKG Order - Use EKG Work-Up 3 /Quick Select; Complete Time: 20:04 11/13 19:54 Order name: Cardiology EKG Interpretation - Choose Reason [facility] for Test 11/13 19:54 Order [...] Order name: Oral Temp; Complete Time: 21:[address] [facility] 11/13 21:43 Order name: Assign [...] Bed/Room Type: Observation 3 Location: Observation(11/13/19 21:50) [facility] Room Assignment: [id number](11/13/19 21:50) 6 Diagnosis - Chest Pain, Other rc3 - Cocaine abuse 3 Additional Information - Patient Status Observation. 3 Forms: - Medication Reconciliation 3 - SBAR 3 Signatures: Dispatcher [employer] Marciano Deluca DO [facility]3 Belen Hernandez RN RN [facility] Cristian Multani Kirsten, MENG [facility]6 Steve Henriquez RN RN rcs Corrections: (The following items were deleted from the chart) 21:50 21:32 Med-Surg 2 3 km6 21:50 21:32 rc3 km6 21:53 19:54 Straight Cath+SONIDO ordered. 3 rcs Name Value Range Interpretation Code Description Data Celeste rce(s) Supporting Document(s) ID Date Data Source [id number] 11/13/2019 07:47:00 PM [facility] Name: AFRICA GASPAR Med Rec #: [id number] : 1985 Age/Sex: 34M Date of Service: 11/13/19 DISPOSITION SUMMARY Discharge Summary [facility] Name:Africa Gaspar Emergency Department Age:34 yrs [...] rce(s) Supporting Document(s) ID Date Data Source [id number] 11/13/2019 07:47:00 PM [facility] Hospital Name: AFRICA GASPAR Med Rec #: [id number] : 1985 Age/Sex: 34M Date of Service: 11/13/19 NURSE CHART Nurse's Notes [facility] Name: Africa Gaspar Age: 34 yrs [...] smoker (>10 cigarettes a day). Preferred Language: Italian. Screenin:16 AUDIT 1. How often do you [...] Mass Index 24.81 (76.20 kg, 175.26 cm) [facility] ED Course: 19:48 Patient arrived in ED. adp 19:49 Saud Cooper RN is Primary Nurse. tlf 19:51 Tayo Schaefer MD is Private Physician. tlf 19:52 Triage completed. tlf 19:52 Marciano Garcia DO is Attending Physician. rc3 19:54 Arm band placed on right wrist. Patient placed in exam room [facility] Bed in low position. Call light in reach. Side rails up X 1. 20:03 An EKG was obtained and reviewed by Marciano Garcia DO. enzo 20:04 Cardiology EKG Interpretation - Choose Reason for Test Sent.enzo 20:10 Primary Nurse role handed off by Saud Cooper RN skb 20:12 Steve Henriquez, DANYEL is Primary Nurse. skb 21:18 Appears restless. Awaiting lab results. rcs 21:18 school bus monitor on. Pulse on is on. NIBP [...] Name Value Range Interpretation Code Description [facility] Document(s) ID Date Data Source [id number] 11/16/2019 02:17:00 PM [facility] Name Value Range Interpretation Code Description Data [facility] rce(s) Supporting Document(s) CPK result 137 U/L 39-308 Normal (applies to non-numeric resul ts) [facility] Test Performed By: [place] [facility] [address] [place] [address] Director: Lacho Henriquez MD ID Date Data Source [id number] 11/16/2019 02:17:00 PM [facility] Value Range Interpretation Code Description Data Celeste rce(s) Supporting Document(s) Hepatitis C Virus Ab result Nonreactive Norm al (applies to non-numeric results) [facility] Test Performed By: [place] [address] Director: Lacho Henriquez MD ID Date Data Source [id number] 11/16/2019 02:17:00 PM [facility] Name Value Range Interpretation Code Description Data Celeste rce(s) Supporting Document(s) Hep Bs Ag result T-Test Nonreactive Normal (applies to non -numeric results) [facility] Test Performed By: [place] [address] Director: Lacho Henriquez MD ID Date Data Source [id number] 11/16/2019 02:17:00 PM [facility] Value Range Interpretation Code Description Data Celeste rce(s) Supporting Document(s) Syphilis Serology result Nonreactive Normal (applies to non-numeric results) [facility] Test Performed By: [place] [address] Director: Lacho Henriquez MD ID Date Data Source [id number] 11/16/2019 02:17:00 PM [facility] Value Range Interpretation Code Description Data Celeste rce(s) Supporting Document(s) Chlamydia,Urine result Negative Normal (applies to non-n umeric results) [facility] Test Performed By: [place] [address] Director: Lacho Henriquez MD . GC Urine result Negative Normal (applies to non-numeric results) [facility] Test Performed By: [place] [address] Director: Lacho Henriquez MD . Methodology: Second generation nucleic acid amplification. ID Date Data Source [id number] 11/16/2019 01:55:00 PM EST [facility] Value Range Interpretation Code Description Data Celeste rce(s) Supporting Document(s) Chlamydia,Urine Negative Normal (applies to non-numeric results) [facility] Test Performed By: [place] [address] Director: Lacho Henriquez MD . GC Urine Negative Normal (applies to non-numeric resul ts) [facility] Test Performed By: [place] [address] Director: Lacho Henriquez MD . Methodology: Second generation nucleic acid amplification. ID Date Data Source [id number] 11/15/2019 05:26:00 PM EST [facility] Value Range Interpretation Code Description Data Celeste rce(s) Supporting Document(s) Hep C Ab-T Test Nonreactive Normal (applies to non-numeric results) [facility] Test Performed By: [place] [address] Director: Lacho Henriquez MD ID Date Data Source [id number] 11/15/2019 05:26:00 PM EST [facility] Value Range Interpretation Code Description Data Celeste rce(s) Supporting Document(s) Hep Bs Ag Result T-Test Nonreactive Normal (applies to non -numeric results) [facility] Test Performed By: [place] [address] Director: Lacho Henriquez MD ID Date Data Source [id number] 11/15/2019 05:26:00 PM EST [facility] Value Range Interpretation Code Description Data Celeste rce(s) Supporting Document(s) Syphilis Serology Nonreactive Normal (applies to non-numer ic results) [facility] Test Performed By: [place] [address] Director: Lacho Henriquez MD ID Date Data Source [id number] 11/15/2019 03:40:00 PM EST [facility] Name Value Range Interpretation Code Description Data Celeste rce(s) Supporting Document(s) CPK 137 U/L 39-308 Normal (applies to non-numeric resul ts) [facility] Test Performed By: [facility] [address] [place] [address] Director: Lacho Henriquez MD ID Date Data Source [id number] 11/14/2019 08:04:00 PM [facility] Name Value Range Interpretation Code Description Data Celeste rce(s) Supporting Document(s) Ethanol Less than 10.0 Normal (applies to non-numeric r esults) [facility] ID Date Data Source [id number] 11/14/2019 08:03:00 PM [facility] Name Value Range Interpretation Code Description Data Celeste rce(s) Supporting Document(s) Sodium 140 mmol/L 136-145 Normal (applies to non-numeric resul ts) [facility] Potassium 3.5-5.1 Normal (applies to non-numeric resul ts) [facility] Chloride 103 mmol/L 98-107 Normal (applies to non-numeric resul ts) [facility] Carbon Dioxide CO2 21-32 Normal (applies to non-numer ic results) [facility] Anion Gap 5.0-16.0 Normal (applies to non-numeric resul ts) [facility] BUN 13 mg/dL 7-18 Normal (applies to non-numeric results) [facility] Creatinine,Serum 0.8-1.5 Normal (applies to non-numeric results) [facility] GFR >60 Normal (applies to non-numeric results) [facility] Glucose Level 115 mg/dL 60-99 Above high normal [facility] Reference range is only applicable when patient is fasting Note the following drug interference: Sulfasalazine Sulfapyridine Can see falsely depressed Can see falsely elevated result with up to 17% results with up to 11% decrease in measurement increase in measurement Recommend patients be collected for this test prior to administration of either drug. Calcium 8.5-10.1 Normal (applies to non-numeric resul ts) [facility] Bilirubin,Total 0.1-1.9 Normal (applies to non-numeric results) [facility] SGOT(AST) 11 U/L 15-37 Below low normal [facility] Note the following drug interference: Sulfasalazine Sulfapyridine Can see falsely depressed Can see falsely elevated result with up to 10% results with up to 10% decrease in measurement increase in measurement Recommend patients be collected for this test prior to administration of either drug. SGPT(ALT) 28 U/L 12-78 Normal (applies to non-numeric resul ts) [facility] Note the following drug interference: Sulfasalazine Sulfapyridine Can see falsely depressed Can see falsely elevated result with up to 29% results with up to 10% decrease in measurement increase in measurement Recommend patients be collected for this test prior to administration of either drug. Alkaline Phosphatase 49 U/L 38-126 Normal (applies to non-num dread results) [facility] can increase Alkaline Phosp le vels up to 2 times the normal adult value. Normal values for children and adolescents are 2 to 3 times the normal adult value. Total Protein 6.0-8.2 Normal (applies to non-numeric re sults) [facility] Albumin Level 3.4-5.0 Normal (applies to non-numeric re sults) [facility] ID Date Data Source [id number] 11/14/2019 08:03:00 PM [facility] Name Value Range Interpretation Code Description Data Celeste rce(s) Supporting Document(s) Bilirubin,Direct 0.05-0.20 Normal (applies to non-numeric results) [facility] ID Date Data Source [id number] 11/14/2019 08:03:00 PM [facility] Name Value Range Interpretation Code Description Data Celeste rce(s) Supporting Document(s) Phosphorus 2.5-4.9 Normal (applies to non-numeric resul ts) [facility] ID Date Data Source [id number] 11/14/2019 08:03:00 PM [facility] Name Value Range Interpretation Code Description Data Celeste rce(s) Supporting Document(s) Magnesium 1.8-2.4 Normal (applies to non-numeric resul ts) [facility] ID Date Data Source [id number] 11/14/2019 08:03:00 PM EST [facility] Name Value Range Interpretation Code Description Data Celeste rce(s) Supporting Document(s) Thyroid Stimulate Hormone TSH 0.358-3.74 Below low normal [facility] ID Date Data Source [id number] 11/14/2019 07:53:00 PM EST [facility] Name Value Range Interpretation Code Description Data Celeste rce(s) Supporting Document(s) White Blood Count 3.5-10.5 Normal (applies to non-numeri c results) [facility] Red Blood Count 4.30-5.70 Normal (applies to non-numeric results) [facility] Hemoglobin 13.5-17.5 Normal (applies to non-numeric resul ts) [facility] Hematocrit 38.8-50.0 Normal (applies to non-numeric resul ts) [facility] Mean Corpuscular Volume 81.2-95.1 Normal (applies to non- numeric results) [facility] Mean Corpuscular Hgb 25.6-32.2 Normal (applies to non-num dread results) [facility] Mean Corpuscular Hgb Conc 32.0-36.0 Normal (applies to no n-numeric results) [facility] Red Cell Distribution Width 11.8-15.6 Normal (appli es to non-numeric results) [facility] Platelet Count 203 x10 3/uL 150-450 Normal (applies to non-numeric results) [facility] Mean Platelet Volume 9.4-12.4 Below low normal [facility] Neutrophils% (Auto) 31.0-71.0 Normal (applies to non-nume gaye results) [facility] Lymphocytes% (Auto) 20.0-55.0 Normal (applies to non-nume gaye results) [facility] Monocytes% (Auto) 4.0-12.0 Normal (applies to non-numeri c results) [facility] Eosinophils% (Auto) 1.0-8.0 Below low normal [facility] Basophils% (Auto) 0.0-2.0 Normal (applies to non-numeri c results) [facility] Immature Granulocytes% (Auto) 0.0-2.0 Normal (burke lies to non-numeric results) [facility] Neutrophils# (Auto) 1.50-6.20 Normal (applies to non-nume gaye results) [facility] Lymphocytes# (Auto) 1.20-4.00 Normal (applies to non-nume gaye results) [facility] Monocytes# (Auto) 0.00-0.90 Normal (applies to non-numeri c results) [facility] Eosinophils# (Auto) 0.00-0.50 Normal (applies to non-nume gaye results) [facility] Basophils# (Auto) 0.00-0.20 Normal (applies to non-numeri c results) [facility] Immature Granulocytes# (Auto) 0.00-7.00 No rmal (applies to non-numeric results) [facility] ID Date Data Source [id number] 11/15/2019 03:26:00 AM EST [facility] Name Value Range Interpretation Code Description Data Celeste rce(s) Supporting Document(s) UDS Phencyclidine Screen Negative Normal (applies to non -numeric results) [facility] UDS Benzodiazepines Screen Negative [facility] UDS Cocaine Screen Negative [facility] UDS Ampetamine Screen Negative Normal (applies to non-nu meric results) [facility] UDS Cannabinoids Screen Negative Normal (applies to non- numeric results) [facility] UDS Opiates Screen Negative Normal (applies to non-numer ic results) [facility] UDS Barbiturates Screen Negative Normal (applies to non- numeric results) [facility] UDS Tricyclic Screen Negative Normal (applies to non-num dread results) [facility] Therapeutic Drug Ranges for Emergency Threshold [...] treatment purposes only. ID Date Data Source [id number] 11/15/2019 03:05:00 AM [facility] Collected By: Nurse Initials: sp Time Collected: 2199 Name Value Range Interpretation Code Description Data Celeste rce(s) Supporting Document(s) Color,Urine Colorl-Dk Y Normal (applies to non-numeric res ults) [facility] Clarity,Urine Clear Normal (applies to non-numeric re sults) [facility] Specific [place],Urine 1.015-1.025 Normal (applies to non- numeric results) [facility] pH,Urine 5.0-7.0 Normal (applies to non-numeric resul ts) [facility] Protein,Urine Negative Normal (applies to non-numeric re sults) [facility] Glucose,Urine Negative Normal (applies to non-numeric re sults) [facility] Ketones,Urine Negative Normal (applies to non-numeric re sults) [facility] Blood,Urine Negative Normal (applies to non-numeric resu lts) [facility] Bilirubin,Urine Negative Normal (applies to non-numeric results) [facility] Urobilinogen,Urine Normal Normal (applies to non-numer ic results) [facility] Leukocyte Esterase,Urine Negative Normal (applies to non -numeric results) [facility] Nitrite,Urine Negative Normal (applies to non-numeric re sults) [facility] ID Date Data Source [id number] 11/14/2019 10:46:00 AM [facility] Name Value Range Interpretation Code Description Data Celeste rce(s) Supporting Document(s) Troponin I 0.000-0.045 Normal (applies to non-numeric resu lts) [facility] ID Date Data Source [id number] 11/14/2019 10:46:00 AM [facility] Name Value Range Interpretation Code Description Data Celeste rce(s) Supporting Document(s) Magnesium 1.80-2.40 Normal (applies to non-numeric resul ts) [facility] ID Date Data Source [id number] 11/14/2019 10:46:00 AM EST [facility] Name Value Range Interpretation Code Description Data Celeste rce(s) Supporting Document(s) Sodium 144 mmol/L 137-145 Normal (applies to non-numeric resul ts) [facility] Potassium 3.5-5.1 Normal (applies to non-numeric resul ts) [facility] Chloride 112 mmol/L 98-112 Normal (applies to non-numeric resul ts) [facility] Carbon Dioxide CO2 22.0-33.0 Normal (applies to non-numer ic results) [facility] Anion Gap 4.0-11.0 Normal (applies to non-numeric resul ts) [facility] BUN 17 mg/dL 9-20 Normal (applies to non-numeric resul ts) [facility] Creatinine 0.80-1.50 Normal (applies to non-numeric resul ts) [facility] GFR >60 Normal (applies to non-numeric results) [facility] Result based on MDRD formula. Glucose Level 65 mg/dL 74-99 Below low normal [facility] The reference range is only applicable w hen fasting. Calcium-Uncorrected 8.4-10.2 Normal (applies to non-nume gaye results) [facility] Corrected Calcium 8.4-10.2 Normal (applies to non-numeri c results) [facility] ID Date Data Source [id number] 11/14/2019 10:19:00 AM EST [facility] Name Value Range Interpretation Code Description Data Celeste rce(s) Supporting Document(s) White Blood Count 4.8-10.8 Normal (applies to non-numeri c results) [facility] Red Blood Count 4.35-6.08 Normal (applies to non-numeric results) [facility] Hemoglobin 13.0-17.5 Normal (applies to non-numeric resul ts) [facility] Hematocrit 37.7-51.0 Normal (applies to non-numeric resul ts) [facility] Mean Corpuscular Volume 80-94 Normal (applies to non- numeric results) [facility] Mean Corpuscular Hemoglobin 27.0-33.0 Normal (appli es to non-numeric results) [facility] Mean Corpuscular HGB Conc 32.0-36.0 Normal (applies to no n-numeric results) [facility] Red Cell Distribution Width 11.5-14.5 Normal (appli es to non-numeric results) [facility] Platelet Count 191 X10 3/uL 130-450 Normal (applies to non-numeric results) [facility] Mean Platelet Volume 9.6-13.1 Below low normal [facility] Imm Grans% (AUTO) 0.0-2.0 Normal (applies to non-numeri c results) [facility] Neutrophils % (AUTO) 43.0-75.0 Normal (applies to non-num dread results) [facility] Lymphocytes % (AUTO) 20.5-45.5 Normal (applies to non-num dread results) [facility] Monocytes % (AUTO) 5.5-11.7 Normal (applies to non-numer ic results) [facility] Eosinophils % (AUTO) 0.7-4.6 Below low normal [facility] Basophils % (AUTO) 0.2-1.2 Normal (applies to non-numer ic results) [facility] Imm Grans# (AUTO) 0.00-0.50 Normal (applies to non-numeri c results) [facility] Neutrophils # (AUTO) 1.90-7.00 Normal (applies to non-num dread results) [facility] Lymphocytes # (AUTO) 1.30-3.10 Normal (applies to non-num dread results) [facility] Monocytes # (AUTO) 0.40-0.70 Normal (applies to non-numer ic results) [facility] Eosinophils# (AUTO) 0.00-0.30 Normal (applies to non-nume gaye results) [facility] Basophils # (AUTO) 0.00-0.10 Normal (applies to non-numer ic results) [facility] ID Date Data Source [id number] 11/14/2019 08:32:00 AM EST [facility] MB if CPK is elevated? Y Name Value Range Interpretation Code Description Data Celeste rce(s) Supporting Document(s) CPK 186 U/L 39-308 Normal (applies to non-numeric resul ts) [facility] ID Date Data Source [id number] 11/14/2019 07:38:00 AM [facility] Name Value Range Interpretation Code Description Data [facility] rce(s) Supporting Document(s) Troponin I 0.000-0.045 Normal (applies to non-numeric resu lts) [facility] ID Date Data Source [id number] 11/13/2019 11:06:00 PM [facility] MB if CPK is elevated? Y MB if CPK is elevated? Y Name Value Range Interpretation Code Description Data [facility] rce(s) Supporting Document(s) Color,Urine Yellow [facility] pital Clarity,Urine Clear Normal (applies to non-numeric re sults) [facility] Specific [place],Urine 1.001-1.030 Normal (applies to non- numeric results) [facility] PH,Urine 5.0-8.0 Normal (applies to non-numeric resul ts) [facility] Protein,Urine Negative [facility] ospital Glucose,Urine (UA) Negative Normal (applies to non-numer ic results) [facility] Ketones,Urine 15 mg/dL Negative [facility] ospital Blood,Urine Negative [facility] Bilirubin,Urine Negative [facility] Positive Bilirubin is no longer doublech ecked. Bilirubin may be elevated due to urine color interference. Urobilinogen,Urine Norm 0.2-1 Normal (applies to non-numer ic results) [facility] Leukocyte Esterase,Urine Negative Normal (applies to non -numeric results) [facility] Nitrite,Urine Negative Normal (applies to non-numeric re sults) [facility] ID Date Data Source [id number] 11/13/2019 11:06:00 PM [facility] MB if CPK is elevated? Y MB if CPK is elevated? Y Name Value Range Interpretation Code Description Data [facility] rce(s) Supporting Document(s) RBC,Auto Urine 0-2 Normal (applies to non-numeric r esults) [facility] WBC Urine Auto 0-2 Normal (applies to non-numeric r esults) [facility] Casts,Hyaline,Urine Auto 0-2 Normal (applies to non -numeric results) [facility] Bacteria Urine Auto None Seen Normal (applies to non-nume gaye results) [facility] Epithelial Cell Ur Auto None-Few Normal (applies to non- numeric results) [facility] ID Date Data Source [id number] 11/13/2019 10:59:00 PM [facility] MB if CPK is elevated? Y Name Value Range Interpretation Code Description Data Celeste rce(s) Supporting Document(s) Opiate Screen,Urine Negative Normal (applies to non-nume gaye results) [facility] Barbiturate Screen,Urine Negative Normal (applies to non -numeric results) [facility] Benzodiazepines Scrn,Ur result Negative N ormal (applies to non-numeric results) [facility] Cocaine Screen,Urine Negative [facility] If a positive quantitative confirmation is desired, an additional order must be submitted and the specimen will be sent out to a reference lab. Cannabinoid Screen, Ur Negative [facility] If a positive quantitative confirmation is [...] treatment purposes only. ID Date Data Source [id number] 11/18/2019 08:39:00 PM [facility] Name Value Range Interpretation Code Description Data Celeste rce(s) Supporting Document(s) Blood [facility] ID Date Data Source [id number] 11/13/2019 09:19:00 PM [facility] MB if CPK is elevated? Y MB [...] 137-145 Normal (applies to non-numeric resul ts) [facility] Potassium 3.5-5.1 Normal (applies to non-numeric resul ts) [facility] Chloride 108 mmol/L 98-112 Normal (applies to non-numeric resul ts) [facility] Carbon Dioxide CO2 22.0-33.0 Normal (applies to non-numer ic results) [facility] Anion Gap 4.0-11.0 Normal (applies to non-numeric resul ts) [facility] BUN 18 mg/dL 9-20 Normal (applies to non-numeric resul ts) [facility] Creatinine 0.80-1.50 Normal (applies to non-numeric resul ts) [facility] GFR 84 mL/min >60 Normal (applies to non-numeric resul ts) [facility] Result based on MDRD formula. Glucose Level 105 mg/dL 74-99 Above high normal [facility] The reference range is only applicable w hen fasting. Calcium-Uncorrected 8.4-10.2 Normal (applies to non-nume gaye results) [facility] Corrected Calcium 8.4-10.2 Normal (applies to non-numeri c results) [facility] Bilirubin,Total 0.2-1.3 Normal (applies to non-numeric results) [facility] SGOT(AST) 18 U/L 17-59 Normal (applies to non-numeric resul ts) [facility] SGPT(ALT) 29 U/L 21-72 Normal (applies to non-numeric resul ts) [facility] Alkaline Phosphatase 48 U/L 38-126 Normal (applies to non-num dread results) [facility] can increase Alkaline Phosp le vels up to 2 times the normal adult value. Normal values for children and adolescents are 2 to 3 times the normal adult value. Total Protein 6.3-8.2 Normal (applies to non-numeric re sults) [facility] Albumin 3.5-5.0 Normal (applies to non-numeric resul ts) [facility] ID Date Data Source [id number] 11/13/2019 09:19:00 PM [facility] MB if CPK is elevated? Y MB [...] 39-308 Normal (applies to non-numeric resul ts) [facility] ID Date Data Source [id number] 11/13/2019 09:19:00 PM [facility] MB if CPK is elevated? Y MB [...] <125 N ormal (applies to non-numeric results) [facility] NT-proBNP values less than 300 pg/mL [...] acute congestive failure. ID Date Data Source [id number] 11/13/2019 09:19:00 PM [facility] MB if CPK is elevated? Y MB [...] Lipase 54 U/L 73-393 Below low normal [facility] ID Date Data Source [id number] 11/13/2019 09:19:00 PM [facility] MB if CPK is elevated? Y MB [...] 0.0-20.0 Normal (applies to non-numeric resul ts) [facility] ID Date Data Source [id number] 11/13/2019 09:19:00 PM EST [facility] MB if CPK is elevated? [...] Supporting Document(s) Acetaminophen 10.0-30.0 Below low normal [facility] ID Date Data Source [id number] 11/13/2019 09:18:00 PM [facility] Name Value Range Interpretation Code Description Data Celeste rce(s) Supporting Document(s) Troponin I 0.000-0.045 Normal (applies to non-numeric resu lts) [facility] ID Date Data Source [id number] 11/13/2019 09:13:00 PM [facility] 3 hour post Lactic if elevated? Y Name Value Range Interpretation Code Description Data Celeste rce(s) Supporting Document(s) Lactic Acid 0.4-2.0 Normal (applies to non-numeric resu lts) [facility] ID Date Data Source [id number] 11/13/2019 09:12:00 PM [facility] MB if CPK is elevated? Y Name Value Range Interpretation Code Description Data Celeste rce(s) Supporting Document(s) Ethanol Less than 10.0 Normal (applies to non-numeric r esults) [facility] ID Date Data Source [id number] 11/13/2019 09:11:00 PM EST [facility] Name Value Range Interpretation Code Description Data Celeste rce(s) Supporting Document(s) PT 9.4-12.5 Above high normal [facility] INR Normal (applies to non-numeric results) [facility] The use of the INR is restricted to silvio ents on stable oral anticoagulant. Therapeutic Range: 2.0-3.0 High Risk Values: 2.5-3.5 ID Date Data Source [id number] 11/13/2019 09:11:00 PM EST [facility] Name Value Range Interpretation Code Description Data Celeste rce(s) Supporting Document(s) PTT 25.1-36.5 Normal (applies to non-numeric resul ts) [facility] ID Date Data Source [id number] 11/13/2019 08:52:00 PM EST [facility] Name Value Range Interpretation Code Description Data Celeste rce(s) Supporting Document(s) White Blood Count 4.8-10.8 Above high normal [facility] Red Blood Count 4.35-6.08 Normal (applies to non-numeric results) [facility] Hemoglobin 13.0-17.5 Normal (applies to non-numeric resul ts) [facility] Hematocrit 37.7-51.0 Normal (applies to non-numeric resul ts) [facility] Mean Corpuscular Volume 80-94 Normal (applies to non- numeric results) [facility] Mean Corpuscular Hemoglobin 27.0-33.0 Normal (appli es to non-numeric results) [facility] Mean Corpuscular HGB Conc 32.0-36.0 Above high normal [facility] Red Cell Distribution Width 11.5-14.5 Normal (appli es to non-numeric results) [facility] Platelet Count 256 X10 3/uL 130-450 Normal (applies to non-numeric results) [facility] Mean Platelet Volume 9.6-13.1 Below low normal [facility] Imm Grans% (AUTO) 0.0-2.0 Normal (applies to non-numeri c results) [facility] Neutrophils % (AUTO) 43.0-75.0 Above high normal [facility] Lymphocytes % (AUTO) 20.5-45.5 Below low normal [facility] Monocytes % (AUTO) 5.5-11.7 Normal (applies to non-numer ic results) [facility] Eosinophils % (AUTO) 0.7-4.6 Below low normal [facility] Basophils % (AUTO) 0.2-1.2 Normal (applies to non-numer ic results) [facility] Imm Grans# (AUTO) 0.00-0.50 Normal (applies to non-numeri c results) [facility] Neutrophils # (AUTO) 1.90-7.00 Above high normal [facility] Lymphocytes # (AUTO) 1.30-3.10 Normal (applies to non-num dread results) [facility] Monocytes # (AUTO) 0.40-0.70 Above high normal [facility] Eosinophils# (AUTO) 0.00-0.30 Normal (applies to non-nume gaye results) [facility] Basophils # (AUTO) 0.00-0.10 Normal (applies to non-numer ic results) [facility] ID Date Data Source [id number] 11/18/2019 09:23:00 PM [facility] Hospital Name Value Range Interpretation Code Description Data Celeste rce(s) Supporting Document(s) Blood Culture-Venous [facility] ID Date Data Source [id number] 11/16/2019 10:42:00 AM [facility] Hospital Name: [place] : 1985 Age/Sex: 34M Ordering Provider: DO Bernardo Zaidi Rec #: [id number] Reg Status:DIS IN Room #: 250-9 Date of Service: 11/13/19 Report Number: [id number] cc: Taoy Schaefer MD; Yandy Schaefer MD; Marciano Garcia DO Send Report To: SINUS TACHYCARDIA ABNORMAL RHYTHM ECG COMPARED TO PRIOR STUDY 09/23/2019 THERE IS INTERVAL RESOLUTION OF THE T WAVE INVERSION THAT WAS SEEN IN LEAD V3. NO OTHER SIGNIFICANT CHANGES. Physician Executive Search Consultant: Simone Echols D.O. ECG HEART RATE: 112 /min ECG RR INTERVAL: 534 ms ECG P DURATION: 88 ms ECG QRS DURATION: 85 ms ECG LA INTERVAL: 124 ms ECG QT INTERVAL: 312 ms ECG QTC INTERVAL: 403 ms Q-T dispersion: ms ECG P AXIS: 63 deg ECG QRS AXIS: 67 deg ECG T AXIS: 30 deg REPORT SIGNATURE ON FILE 11/16/19 1044 Reported By: Simone Echols DO <Electronically signed by Simone Echols DO in OV> * <<Signature on File>> Exam Date/Time: 11/13/19 [facility] Order #: [id number] Dictation Date/Time: 11/16/192 Transcribed Date/Time: 11/16/19 1042 Vac Press Operator: IATRICS Name Value Range Interpretation Code Description Data Celeste rce(s) Supporting Document(s) ID Date Data Source [id number] 11/14/2019 06:35:00 AM EST [facility] Name: [place] GAS[place] : 1985 Age/Sex: 34M Ordering Provider: Marciano Garcia DO Med Rec #: [id number] Reg Status: DIS IN Room #: 250-9 Date of Service: 11/13/19 Report Number: [id number] cc:Tayo Schaefer MD; Marciano Garcia DO Send Report To: [id number] XRP/XR Chest Xray Portable Reason for exam: [...] 11/16/19800 Dictation Date/Time: 11/13/192044 Transcribed Date/Time: 11/14/19634 Vac Press Operator: KIM Name Value Range Interpretation Code Description Data Celeste rce(s) Supporting Document(s) Procedure Social History Code Duration Value Status Description Data Source(s ) Smoking 10/18/2020 12:00:00 AM EST Current Smoker completed Curre nt Smoker eCW1 ([facility]) Vital Signs ID Date Data Source UNK Name Value Range Interpretation Code Description Data Source(s) Diastolic blood pressure 80 mm[Hg] 80 mm[Hg] eCW1 ([facility]) Systolic blood pressure 118 mm[Hg] 118 mm[Hg] e CW1 ([facility]) Body temperature 97.2 [degF] 97.2 [degF] eCW1 ( [facility]) Respiratory rate 18 /min 18 /min eCW1 ([facility]) Heart rate 71 /min 71 /min eCW1 ([facility]) Body mass index (BMI) [Ratio] 34.40 kg/m2 34.40 kg/m2 eCW1 ([facility]) Body height 69 [in_i] 69 [in_i] eCW1 (Counts include 234 beds at the [facility]) Body weight 233 [lb_av] 233 [lb_av] eCW1 ([facility]) Body mass index (BMI) [Ratio] 34.0 kg/m2 34.0 k g/m2 MEDENT ([facility]) Body weight 233.00 [lb_av] 233.00 [lb_av] MEDEN T ([facility]) Body height 69.4 [in_i] 69.4 [in_i] MEDENT ([facility]) 5'9.40" Body temperature 97.5 [degF] [...] Body height 69.4 [in_i] 69.4 [in_i] MEDENT ([facility]) 5'9.40" ID Date Data Source [id number] 11/18/2019 02:40:00 PM [facility] Name Value Range Interpretation Code Description Data Source(s) Weight (Calculated Kilograms) 74.84 74.84 [facility] Height (Calculated Centimeters) 175.26 175. 26 [facility] Body Mass Index (BMI) 24.3 24.3 [facility] ID Date Data Source [id number] 12/09/2019 08:18:00 AM [facility] Name Value Range Interpretation Code Description Data Source(s) Weight Measurement Method 1 1 [facility] Weight (Calculated Kilograms) 74.84 74.84 [facility] Weight 2856.0 2856.0 [facility] Temperature Source 7 7 [facility] Temperature 97.0 97.0 [facility] Respiratory Effort 1 1 [facility] Respiratory Rate 15 15 [facility] Pulse Assessment Method 4 4 [facility] Pulse Rate 62 62 [facility] Height (Calculated Centimeters) 175.26 175. 26 [facility] Height 69 69 [facility] Blood Pressure 110/69 110/69 [facility] Body Mass Index (BMI) 24.3 24.3 [facility] Weight Measurement Method 1 1 [facility] Weight (Calculated Kilograms) 74.84 74.84 [facility] Weight 2856.0 2856.0 [facility] Temperature Source 7 7 [facility] Temperature 97.0 97.0 [facility] Respiratory Effort 1 1 [facility] Respiratory Rate 15 15 [facility] Pulse Assessment Method 4 4 [facility] Pulse Rate 62 62 [facility] Height (Calculated Centimeters) 175.26 175. 26 [facility] Height 69 69 [facility] Blood Pressure 110/69 110/69 [facility] Body Mass Index (BMI) 24.3 24.3 [facility] Weight Measurement Method 1 1 [facility] Weight (Calculated Kilograms) 74.84 74.84 [facility] Weight 2856.0 2856.0 [facility] Temperature Source 7 7 [facility] Temperature 97.0 97.0 [facility] Respiratory Effort 1 1 [facility] Respiratory Rate 15 15 [facility] Pulse Assessment Method 4 4 [facility] Pulse Rate 62 62 [facility] Height (Calculated Centimeters) 175.26 175. 26 [facility] Height 69 69 [facility] Blood Pressure 110/69 110/69 [facility] Body Mass Index (BMI) 24.3 24.3 [facility] Weight Measurement Method 1 1 [facility] Weight (Calculated Kilograms) 74.84 74.84 [facility] Weight 2672 2672 [facility] Temperature Source 7 7 [facility] Temperature 97.1 97.1 [facility] Respiratory Effort 1 1 [facility] Respiratory Rate 16 16 [facility] Pulse Assessment Method 4 4 [facility] Pulse Rate 97 97 [facility] Height (Calculated Centimeters) 175.26 175. 26 [facility] Height 69 69 [facility] Blood Pressure 138/84 138/84 [facility] Body Mass Index (BMI) 24.3 24.3 [facility] Weight Measurement Method 7 7 [facility] Weight (Calculated Kilograms) 74.84 74.84 [facility] Weight 2640 2640 [facility] Temperature Source 7 7 [facility] Temperature 97.3 97.3 [facility] Respiratory Effort 1 1 [facility] Respiratory Rate 16 16 [facility] Pulse Assessment Method 4 4 [facility] Pulse Rate 81 81 [facility] Height (Calculated Centimeters) 175.26 175. 26 [facility] Height 69 69 [facility] Blood Pressure 127/79 127/79 [facility] Body Mass Index (BMI) 24.3 24.3 [facility] Weight Measurement Method 7 7 [facility] Weight (Calculated Kilograms) 74.84 74.84 [facility] Weight 2640 2640 [facility] Temperature Source 7 7 [facility] Temperature 97.3 97.3 [facility] Respiratory Effort 1 1 [facility] Respiratory Rate 16 16 [facility] Pulse Assessment Method 4 4 [facility] Pulse Rate 65 65 [facility] Height (Calculated Centimeters) 175.26 175. 26 [facility] Height 69 69 [facility] Blood Pressure 112/73 112/73 [facility] Body Mass Index (BMI) 24.3 24.3 [facility] Weight (Calculated Kilograms) 66.68 66.68 [facility] Height (Calculated Centimeters) 175.26 175. 26 [facility] Body Mass Index (BMI) 21.7 21.7 [facility] ID Date Data Source [id number] 11/16/2019 01:55:00 PM EST [facility] Hospital Name Value Range Interpretation Code Description Data Source(s) Weight (Calculated Kilograms) 66.68 66.68 [facility] Height (Calculated Centimeters) 175.26 175. 26 [facility] Body Mass Index (BMI) 21.7 21.7 [facility] ID Date Data Source [id number] 11/26/2019 10:04:00 AM EST [facility] spital Name Value Range Interpretation Code Description Data Source(s) Weight Measurement Method 1 1 [facility] Weight (Calculated Kilograms) 72.03 72.03 [facility] Weight 2540.8 2540.8 [facility] pital Temperature Source 7 7 [facility] Temperature 98.2 98.2 [facility] Respiratory Effort 1 1 [facility] Respiratory Rate 18 18 [facility] Pulse Assessment Method 4 4 [facility] Pulse Rate 75 75 [facility] pital Height (Calculated Centimeters) 175.26 175. 26 [facility] 69 69 [facility] 112/78 112/78 [facility] Body Mass Index (BMI) 23.[address] Weight Measurement Method 1 1 [facility] Weight (Calculated Kilograms) 72.03 72.03 [facility] Weight 2540.8 2540.8 [facility] pital Temperature Source 7 7 [facility] Temperature 98.2 98.2 [facility] spital Respiratory Effort 1 1 [facility] Respiratory Rate 18 18 [facility] Pulse Assessment Method 4 4 [facility] Pulse Rate 75 75 [facility] pital Height (Calculated Centimeters) 175.26 175. 26 [facility] Height 69 69 [facility] pital Blood Pressure 112/78 112/78 [facility] Body Mass Index (BMI) 23.4 234 [facility] Weight Measurement Method 1 1 [facility] Weight (Calculated Kilograms) 72.03 72.03 [facility] Weight 2540.8 2540.8 [facility] pital Temperature Source 7 7 [facility] Temperature 98.2 98.2 [facility] sp[facility] Respiratory Effort 1 1 [facility] Respiratory Rate 18 18 [facility] Pulse Assessment Method 4 4 [facility] Pulse Rate 75 75 [facility] pital Height (Calculated Centimeters) 175.26 175. 26 [facility] Height 69 69 [facility] pital Blood Pressure 112/78 112/78 [facility] Body Mass Index (BMI) 23.4 23.4 [facility] Weight Measurement Method 1 1 [facility] Weight (Calculated Kilograms) 72.03 72.03 [facility] Weight 2540.8 2540.8 [facility] pital Temperature Source 7 7 [facility] Temperature 97.5 97.5 [facility] Respiratory Effort 1 1 [facility] Respiratory Rate 18 18 [facility] Pulse Assessment Method 4 4 [facility] Pulse Rate 81 81 [facility] pital Height (Calculated Centimeters) 175.26 175. 26 [facility] 69 69 [facility] 115/77 115/77 [facility] Body Mass Index (BMI) 23.4 23.4 [facility] Weight Measurement Method 1 1 [facility] Weight (Calculated Kilograms) 72.03 72.03 [facility] Weight 2540.8 2540.8 [facility] pital Temperature Source 7 7 [facility] Temperature 97.9 97.9 [facility] spital Respiratory Effort 1 1 [facility] Respiratory Rate 20 20 [facility] Pulse Assessment Method 4 4 [facility] Pulse Rate 73 73 [facility] pital Height (Calculated Centimeters) 175.26 175. 26 [facility] Height 69 69 [facility] Pressure 130/84 130/84 [facility] Body Mass Index (BMI) 23.4 23.4 [facility] Weight Measurement Method 1 1 [facility] Weight (Calculated Kilograms) 72.03 72.03 [facility] Weight 2540.8 2540.8 [facility] pital Temperature Source 1 1 [facility] Temperature 99.4 99.4 [facility] spital Respiratory Effort 1 1 [facility] Respiratory Rate 16 16 [facility] Pulse Assessment Method 4 4 [facility] Pulse Rate 74 74 [facility] pital Height (Calculated Centimeters) 175.26 175. 26 [facility] Height 69 69 [facility] Blood Pressure 117/76 117/76 [facility] Body Mass Index (BMI) 23.4 23.4 [facility] Weight (Calculated Kilograms) 70.31 70.31 [facility] Height (Calculated Centimeters) 175.26 175. 26 [facility] Body Mass Index (BMI) 22.8 22.8 [facility] ID Date Data Source [id number] 11/26/2019 10:04:00 AM EST [facility] Name Value Range Interpretation Code Description Data Source(s) Weight Measurement Method 1 1 [facility] Weight (Calculated Kilograms) 66.68 66.68 [facility] Weight 2544.0 2544.0 [facility] Temperature Source 7 7 [facility] Temperature 98.4 98.4 [facility] Respiratory Effort 1 1 [facility] Respiratory Rate 17 17 [facility] Pulse Assessment Method 4 4 [facility] Pulse Rate 66 66 [facility] Height (Calculated Centimeters) 175.26 175. 26 [facility] Blood Pressure 108/66 108/66 [facility] Body Mass Index (BMI) 21.7 21.7 [facility] Weight Measurement Method 1 1 [facility] Weight (Calculated Kilograms) 66.68 66.68 [facility] Weight 2544.0 2544.0 [facility] Temperature Source 7 7 [facility] Temperature 98.4 98.4 [facility] Respiratory Effort 1 1 [facility] Respiratory Rate 17 17 [facility] Pulse Assessment Method 4 4 [facility] Pulse Rate 66 66 [facility] Height (Calculated Centimeters) 175.26 175. 26 [facility] Blood Pressure 108/66 108/66 [facility] Body Mass Index (BMI) 21.7 21.7 [facility] Weight (Calculated Kilograms) 66.68 66.68 [facility] Height (Calculated Centimeters) 175.26 175. 26 [facility] Body Mass Index (BMI) 21.7 21.7 [facility] Weight (Calculated Kilograms) 66.68 66.68 [facility] Height (Calculated Centimeters) 175.26 175. 26 [facility] Body Mass Index (BMI) 21.7 21.7 [facility] Weight (Calculated Kilograms) 66.68 66.68 [facility] Height (Calculated Centimeters) 175.26 175. 26 [facility] Body Mass Index (BMI) 21.7 21.7 [facility] Weight (Calculated Kilograms) 66.68 66.68 [facility] Height (Calculated Centimeters) 175.26 175. 26 [facility] Body Mass Index (BMI) 21.7 21.7 [facility] Weight (Calculated Kilograms) 66.68 66.68 [facility] Height (Calculated Centimeters) 175.26 175. 26 [facility] Body Mass Index (BMI) 21.7 21.7 [facility] ID Date Data Source [id number] 11/26/2019 10:04:00 AM EST [facility] spital Name Value Range Interpretation Code Description Data Source(s) Weight Measurement Method 1 1 [facility] Weight (Calculated Kilograms) 70.31 70.31 [facility] 2480 [facility]80 [facility] 1 1 [facility] Temperature 97.3 97.3 [facility] spital Respiratory Effort 1 1 [facility] Respiratory Rate 16 16 [facility] Pulse Assessment Method 4 4 [facility] Pulse Rate 80 80 [facility] Height (Calculated Centimeters) 175.26 175. 26 [facility] Height 69 69 [facility] Blood Pressure 112/74 112/74 [facility] Body Mass Index (BMI) 22.8 22.8 [facility] Weight Measurement Method 1 1 [facility] Weight (Calculated Kilograms) 70.31 70.31 [facility] Weight 2480 2480 [facility] pital Temperature Source 1 1 [facility] Temperature 97.3 97.3 [facility] spital Respiratory Effort 1 1 [facility] Respiratory Rate 16 16 [facility] Pulse Assessment Method 4 4 [facility] Pulse Rate 80 80 [facility] pital Height (Calculated Centimeters) 175.26 175. 26 [facility] Height 69 69 [facility] 112/74 112/74 [facility] Body Mass Index (BMI) 22.8 22.8 [facility] [facility] Weight Measurement Method 1 1 [facility] Weight (Calculated Kilograms) 70.31 70.31 [facility] Weight 2480 2480 [facility] pital Temperature Source 1 1 [facility] Temperature 97.3 97.3 [facility] spital Respiratory Effort 1 1 [facility] Respiratory Rate 16 16 [facility] Pulse Assessment Method 4 4 G [facility] Pulse Rate 80 80 [facility] pital Height (Calculated Centimeters) 175.26 175. 26 [facility] 112/74 112/74 [facility] Body Mass Index (BMI) 22.8 228 [facility] ID Date Data Source [id number] 11/26/2019 10:04:00 AM EST [facility] Hospital Name Value Range Interpretation Code Description Data Source(s) Weight (Calculated Kilograms) 66.[address] Height (Calculated Centimeters) 175.26 175. 26 [facility] Body Mass Index (BMI) 21.7 21.7 [facility] Weight (Calculated Kilograms) 66.68 66.68 [facility] Height (Calculated Centimeters) 175.26 175. 26 [facility] Body Mass Index (BMI) 21.7 21.7 [facility] Weight (Calculated Kilograms) 66.68 66.68 [facility] Height (Calculated Centimeters) 175.26 175. 26 [facility] Body Mass Index (BMI) 21.7 21.7 [facility] Weight (Calculated Kilograms) 66.68 66.68 [facility] Height (Calculated Centimeters) 175.26 175. 26 [facility] Body Mass Index (BMI) 21.7 21.7 [facility] Patient Treatment Plan of Care Planned Activity Planned Date Details Description Data Source (s) doxycycline hyclate 100 MG Oral Capsule 10/18/2020 12:00:00 AM EST eCW1 ([facility]) Colchicine 0.5 MG / Probenecid 500 MG Oral Tablet 10/18/2020 12: 00:00 AM EST eCW1 ([facility])
[2020-12-31] MEDS ORDERED: SUBO8MIS SL (19:51)
--- NOTE | 2020-12-31 20:51 | ECGEPIP ---
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
[2020-12-31] MEDS ORDERED: PROPRANOLOL 20 MG TAB PO SCH (21:00)
[2020-12-31] MEDS ORDERED: DOXEPIN 25 MG CAP PO SCH (21:00)
[2020-12-31 21:19] VITALS: BP 139/90
[2021-01-01 01:25] VITALS: BP 125/77
[2021-01-01] MEDS ORDERED: ADDERALL 5 MG TAB PO SCH (09:00)
[2021-01-01] MEDS ORDERED: DOCUSATE SODIUM 100MG CAPSULE PO SCH (09:00)
[2021-01-01] MEDS ORDERED: CitaloPRAM (CeleXA) 20 MG TAB PO SCH (09:00)
[2021-01-01] MEDS ORDERED: AMPHETAMINE/DEXTROAMPHETAMINE 5 MG *ER* CAPSULE (ADDERALL XR) PO SCH (09:00)
== END 2021-01-01 01:34 ==
LOC: M ED 22:25
DX: F23 Brief psychotic disorder (principal); F19.10 Other psychoactive substance abuse, uncomplicated; Z79.899 Other long term (current) drug therapy

== ENCOUNTER 2021-01-18 21:31 | Inpatient (IN) | payer OTHER ==
[~2021-01-18] VITALS: Ht 175.3 cm; Wt 86.0 kg
[~2021-01-18 21:31] MED LIST changes: +SUBO8MIS SL
[2021-01-18] MEDS ORDERED: IBUPROFEN 600MG TAB PO ONE (22:00)
[2021-01-18] MEDS ORDERED: NS 1,000 ML IV ONE (22:00)
[2021-01-18] MEDS ORDERED: LORazepam 1 MG TAB PO ONE (22:00)
[2021-01-18] MEDS ORDERED: ACETAMINOPHEN TAB 650MG DOSE (2X325MG) PO ONE (22:00)
[2021-01-18 22:06] LABS: HEMATOCRIT 52.1 % (42.0-52.0); HEMOGLOBIN 17.8 g/dl (13.5-17.5); MEAN CORPUSCULAR HEMOGLOBIN 29.5 pg (27.0-33.0); MEAN CORPUSCULAR HGB CONC 34.2 g/dl (32.0-36.5); MEAN CORPUSCULAR VOLUME 86.4 fl (80.0-96.0); PLATELET COUNT, AUTOMATED 308 10^3/uL (150-450); RED BLOOD COUNT 6.03 10^6/uL (4.30-6.10); WHITE BLOOD COUNT 10.4 10^3/uL (4.0-10.0)
--- NOTE | 2021-01-18 22:48 | REPVR ---
PROCEDURE INFORMATION: Exam: XR Chest Exam date and time: 01/18/2021 10:35 PM Age: 35 years old Clinical indication: Other: Overdose TECHNIQUE: Imaging protocol: XR of the chest Views: 2 views. COMPARISON: 1. CR Chest, 2 view PA, Lat 2020-11-15 21:55 2. ND Chest, 2 view PA, Lat 2020-12-28 15:30 FINDINGS: Lungs: Unremarkable. No consolidation. Pleural spaces: Unremarkable. No pleural effusion. No pneumothorax. Heart/Mediastinum: Unremarkable. No cardiomegaly. Bones/joints: Unremarkable. IMPRESSION: No acute findings. Electronically signed by: Simone Michel On 01/18/2021 22:48:41 PM
[2021-01-18 22:51] LABS: ACETAMINOPHEN LEVEL < 2.0 UG/ML (10.0-30.0); ALBUMIN 4.6 GM/DL (3.2-5.2); ALT/SGPT 48 U/L (12-78); BILIRUBIN,DIRECT 0.2 MG/DL (0.0-0.2); BILIRUBIN,TOTAL 0.6 MG/DL (0.2-1.0); BLOOD UREA NITROGEN 17 MG/DL (7-18); CALCIUM LEVEL 9.7 MG/DL (8.5-10.1); CARBON DIOXIDE LEVEL 24 MEQ/L (21-32); CHLORIDE LEVEL 108 MEQ/L (98-107); CREATININE FOR GFR 1.32 MG/DL (0.70-1.30); ETHYL ALCOHOL (ETHANOL) < 0.003 % (0.000-0.010); GLOMERULAR FILTRATION RATE > 60.0 (>60); GLUCOSE, FASTING 123 MG/DL (70-100); POTASSIUM SERUM 3.8 MEQ/L (3.5-5.1); SALICYLATE LEVEL < 1.7 MG/DL (5.0-30.0); SODIUM LEVEL 140 MEQ/L (136-145); TOTAL PROTEIN 8.9 GM/DL (6.4-8.2)
[2021-01-19 00:43] LABS: AMPHETAMINES LEVEL URINE NEGATIVE (NEGATIVE); BARBITURATES URINE NEGATIVE (NEGATIVE); BENZODIAZEPINES URINE NEGATIVE (NEGATIVE); CANNABINOIDS URINE NEGATIVE (NEGATIVE); COCAINE METABOLITE URINE NEGATIVE (NEGATIVE); METHADONE URINE NEGATIVE (NEGATIVE); OPIATES URINE NEGATIVE (NEGATIVE); PHENCYCLIDINE URINE NEGATIVE (NEGATIVE)
[2021-01-19] MEDS ORDERED: SUBO8MIS SL (01:19)
[2021-01-19] MEDS ORDERED: D31000TA2 PO (01:23)
[2021-01-19] MEDS ORDERED: ROPI1TAB3 PO (01:23)
[2021-01-19] MEDS ORDERED: QUET200T2 PO (01:23)
[2021-01-19] MEDS ORDERED: QUET400T PO (01:23)
[2021-01-19] MEDS ORDERED: OMEP-218 PO (01:23)
[2021-01-19] MEDS ORDERED: CLON-412 PO (01:23)
[2021-01-19] MEDS ORDERED: QUET50TA3 PO (01:23)
[2021-01-19] MEDS ORDERED: NICO1DIS12 TD (01:23)
[2021-01-19] MEDS ORDERED: MAALOX 30 ML SUSP *UDC PO PRN (01:40)
[2021-01-19] MEDS ORDERED: ACETAMINOPHEN TAB 650MG DOSE (2X325MG) PO PRN (01:40)
[2021-01-19] MEDS ORDERED: NICOTINE 21MG/24HR 1 EA TRANSDERMAL TD PRN (01:40)
[2021-01-19] MEDS ORDERED: MOM 30ML SUSPENSION UDC PO PRN (01:40)
[2021-01-19 02:21] LABS: RSV AMPLIFICATION NEGATIVE (NEGATIVE)
[2021-01-19 02:25] VITALS: BP 138/90
[2021-01-19] MEDS ORDERED: INFLUENZA QUADRIVALENT PF VACCINE 0.5ML SYRINGE IM ONE (09:00)
[2021-01-19] MEDS ORDERED: SUBO2MIS SL (09:02)
--- NOTE | 2021-01-19 09:19 | MHHPEPDOC ---
General Date Of Admission: Jan 19, 2021 Legal Status: 9.39 Chief Complaint "And depressed. I've been using drugs, I live alone. I have suicidal ideas. History of Present Illness HISTORY OF THE PRESENT ILLNESS: Patient is a 35 -year-old , male, who this 35-year-old male has had numerous drug rehabilitation admissions. He states he is depressed. He's been using drugs. He lives alone. He has no phone. He has no furniture. He got his apartment from "[facility] [place] He has been in that apartment 2 months previously. He lived in. He has a however graduated from a group home house here in [place]. [facility]. He moved to this apartment. He began using mildly. He feels he is stuck in the house. She is not followed up with his meds or his counseling. He was admitted some weeks ago to us. We go [facility] and was placed on numerous medications incomplete list. Wellbutrin, Seroquel and clonidine. He also states he was prescribed Adderall by [facility]. He was sent by our emergency room to us, we go and they put him on numerous medications. He does not remember all of them. He says he has follow-up appointments, but has not been going and he has not picked up numerous of his prescriptions. His most recent prescriptions that we found from his pharmacy have involved prazocin. 1 mg 2 tabs at night. Bupropion XL 150 daily, clonidine 0.1 twice a day, Seroquel 50 mg twice a day and Seroquel 600 at night He states I don't want to live alone and depressed. Maybe it's the drugs, but I hear things. I see things and think people are out to get me. His legal history is negative. His drug history. He has been ongoing for 20 years, been in 4-5 rehabilitation centers [facility]. His only psychiatric treatment has been in [place], as mentioned, he has no medical issues. His past history includes ADHD and anxiety disorder, and he states Adderall was prescribed by [facility]. He states that Dr. suero in [place] prescribed these most recent meds. He states he has made no suicide attempts. Neurological history is negative. His surgical history is positive for oral surgery only. He states his mother lives in [place]. He has never seen his father or his siblings. However, he states his family cousins and aunts uncles have a history of addiction. Patient also was prescribed. Buprenorphine 4 mg/1 mg, but has not taken it since January 15. Patient presently denies auditory or visual hallucinations. 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 At other program Previous Psychiatric Admissions:, [place] Suicide Attempts: Thoughts only. Psychiatric Follow-up: Has not followed up. Psychiatric medications: Was prescribed last week ago. Seroquel 600 at bedtime 50 mg twice a day, Seroquel, clonidine 0.1 twice a day. Bupropion 150 daily. Prazosin 1 mg 2 at bedtime, ropinirole 1 mg at bedtime patient reports "we don't prescribe some Adderall. Past Medical History Medical Problems none Head Injury: No Seizures: No Hospitalizations: Yes Surgeries: No Family Medical/Psychiatric HX Psychiatric Disorders: No Addiction: Yes Suicide Attemps/Completions: No Addiction History cocaine, amphetamines, opioids, methamphetamines, heroin Social History Childhood: from his father at a young age, never met him, has not met his siblings. Abuse/Trauma:. No information. Current Living Situation: Alone in an apartment in [place]. Education: high School. Employment: Little employment experience. Social Support: None. Legal: None. Marital: single. Mental Status Examination General Appearance: hospital scubs/clothing Build: average Demeanor: average Eye Contact: average Activity: average, slowed Behavior: cooperative Speech: clear Mood: euthymic Affect: constricted Thought Process: logical/linear Thought Content (Delusions): none reported Thought Content (Other): none reported Thought Content (Aggressive): none reported Perception (Hallucinations): auditory, visual Perception (Other): none reported Cognition (Impairment of): none reported Cognition(Intelligence Est.): average Oriented: Awake, Alert, Oriented times three Insight: poor Judgment: Poor Psychosis: Psychotic Perceptions Diagnoses Polysubstance abuse Depresion A-FIB/CHADSVASC A-FIB History Current/History of A-Fib/PAF?: No Age/Risk Factor Scoring CHADSVASC: CHADSVASC Response (Comments) Value Age Risk Factor Age < 65 years old 0 Gender Risk Factor Male 0 Hx of CHF No 0 Hx of HTN No 0 Hx of Stroke/TIA/or VTE No 0 Hx of Diabetes No 0 Hx of Vascular Disease No 0 Total 0 Treatment Treatment ordered: NONE Initial Treatment Plan 1. Patient was admitted on a [9.39] status. 2. Complete history was obtained. 3. With patients permission, family will be contacted and database will be expanded. 4. Patients medication regimen will be reviewed and changed accordingly. 5. Patient will be provided with protected environment. 6. Patient will be treated with individual, group, and milieu therapies. 7. Patient will receive supportive psych-education. 8. Discharge planning will commence immediately. 9. Outpatient follow-up treatment will be strongly recommended. 10. The initial treatment plan will focus initially on: * Depression. * Risk for suicide. ESTIMATED LENGTH OF STAY: - DAYS. TIME SPENT COUNSELING AND COORDINATING INITIAL CARE: minutes. N/A-No Antipsychotics Vital Signs Vital Signs Date Time Temp Pulse Resp B/P (MAP) Pulse Ox O2 Delivery O2 Flow Rate FiO2 01/19/21 02:33 99.3 108 18 128/89 (102) 98 Room Air Laboratory Data 24H Labs Laboratory Tests 2 01/18/21 21:45: Nucleated Red Blood Cells % (auto) 0.0, Anion Gap 8, Glomerular Filtration Rate > 60.0, Calcium Level 9.7, Total Bilirubin 0.6, Direct Bilirubin 0.2, Aspartate Amino Transf (AST/SGOT) 24, Alanine Aminotransferase (ALT/SGPT) 48, Alkaline Phosphatase 78, Total Protein 8.9H, Albumin 4.6, Albumin/Globulin Ratio 1.1, Thyroid Stimulating Hormone (TSH) 1.980, Salicylates Level < 1.7L, Acetaminophen Level < 2.0L, Ethyl Alcohol Level < 0.003 01/19/21 00:10: Urine Opiates Screen NEGATIVE, Urine Methadone Screen NEGATIVE, Urine Barbiturates Screen NEGATIVE, Urine Phencyclidine Screen NEGATIVE, Urine Amphetamines Screen NEGATIVE, Urine Benzodiazepines Screen NEGATIVE, Urine Cocaine Metabolite Screen NEGATIVE, Urine Cannabinoids Screen NEGATIVE 01/19/21 01:35: Coronavirus (COVID-19)(PCR) NEGATIVE, Influenza Type A (RT-PCR) NEGATIVE, Influenza Type B (RT-PCR) NEGATIVE, Respiratory Syncytial Virus (PCR) NEGATIVE CBC/BMP Laboratory Tests 01/18/21 21:45 Medications Scheduled Buprenorphine HCl/Naloxone HCl (Suboxone 8 mg-2 mg Sl Film) 1 Each Film, 1 STRIP SL DAILY, (Reported) Cholecalciferol (Vitamin D3) (Vitamin D3) 1,000 Unit Tablet, 1,000 UNITS PO BID, (Reported) Clonidine HCl (Clonidine HCl) 0.1 Mg Tablet, 0.1 MG PO BID, (Reported) Nicotine (Nicotine Patch) 21 Mg Patch.td24, 21 MG TD DAILY, (Reported) Omeprazole (Omeprazole) 20 Mg Capsule.dr, 20 MG PO BID, (Reported) Quetiapine Fumarate (Quetiapine Fumarate) 200 Mg Tablet, 200 MG PO DAILY, (Reported) TAKES AT 1400 Quetiapine Fumarate (Quetiapine Fumarate) 50 Mg Tablet, 50 MG PO BID, (Reported) Quetiapine Fumarate (Quetiapine Fumarate) 400 Mg Tablet, 400 MG PO QHS, (Reported) TAKES WITH THE 50MG FOR 450MG TOTAL Ropinirole HCl (Ropinirole HCl) 1 Mg Tablet, 1 MG PO QHS, (Reported) Allergies Coded Allergies: No Known Allergies (Unverified , 10/24/20) STEVEN SO MD Jan 19, 2021 09:19
--- NOTE | 2021-01-19 17:27 | ECGEPIP ---
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
[2021-01-19 18:44] VITALS: BP 109/57
[2021-01-20 06:41] VITALS: BP 128/80
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
[2021-01-20] MEDS: cloNIDine 0.1MG TABLET PO SCH ×2 (14:46→20:20)
[2021-01-20] MEDS: QUEtiapine FUMARATE 50MG TAB PO SCH ×2 (14:47→20:19)
[2021-01-20] MEDS: OMEPRAZOLE 20 MG CAP PO SCH (14:47)
[2021-01-20] MEDS: BUPRENORPHINE/NALOXONE 2-0.5MG SUBLINGUAL TABLET(SUBOXONE) SL SCH (14:47)
--- NOTE | 2021-01-20 16:59 | MHIPNPDOC ---
[facility] Progress Note Progress Note DATE OF SERVICE: 01/20/21 HISTORY: Polysubstance abuse, with numerous rehabilitation programs, recent relapse. VITAL SIGNS: See below. NEW TEST RESULTS: None. CURRENT MEDICATIONS: See below. MENTAL STATUS EXAMINATION: Patient is a 35-year old male, who is, stayed in his room and refused to come out. Said I didn't get my medications yet. Speech: Is quiet muffled. Language skills are. No gross disturbance. Thought processes including:. No gross disturbance. Thought content: No gross disturbance. Abstract reasoning, and computation: Capable. Description of associations:. No loose association. Description of abnormal or psychotic thoughts:. No present psychotic. Judgment: poor Insight: poor Orientation: 3. Recent and remote memory:. Intact. Attention span and concentration: Poor. Language:. No gross disturbance. Fund of knowledge: unclear. Mood: Sad. Affect:, Congruent. DIAGNOSES: 1. Poly-substance abuse. 2. Depression. 3. ASSESSMENT: MANAGEMENT PLAN: . TIME SPENT: minutes. Vital Signs Vital Signs Date Time Temp Pulse Resp B/P (MAP) Pulse Ox O2 Delivery O2 Flow Rate FiO2 01/20/21 14:46 128/80 01/20/21 06:41 98.5 59 18 100 Room Air Current Medications Current Medications Medications (Trade) Dose Ordered Sig/Jareth Route PRN Reason Start Time Stop Time Status Last Admin Dose Admin Acetaminophen (Tylenol Tab) 650 mg Q6HP PRN PO HEADACHE or DISCOMFORT 01/19/21 01:40 Al Hydrox/Mg Hydrox/Simethicone (Mylanta) 30 ml Q4HP PRN PO HEARTBURN/INDIGESTION 01/19/21 01:40 Buprenorphine/ Naloxone (Suboxone 2/ 0.5mg) 1 tab DAILY SL 01/20/21 09:00 01/20/21 14:47 Clonidine HCl (Catapres) 0.1 mg BID PO 01/20/21 09:00 01/20/21 14:46 Home Med (Med Rec Complete!) ASDIRECTED XX 01/19/21 09:05 01/19/21 09:04 DC Magnesium Hydroxide (Milk Of Magnesia) 30 ml DAILYPRN PRN PO CONSTIPATION 01/19/21 01:40 Nicotine (Nicoderm Cq 21mg) 1 patch DAILY PRN TD NICOTINE WITHDRAWAL 01/19/21 01:40 Olanzapine (ZyPREXA ZYDIS) 5 mg Q4HP PRN PO AGITATION 01/19/21 01:40 Omeprazole (PriLOSEC) 20 mg DAILY PO 01/20/21 09:00 01/20/21 14:47 Quetiapine Fumarate (SEROquel) 50 mg BID PO 01/20/21 09:00 01/20/21 14:47 Quetiapine Fumarate (SEROquel) 600 mg QHS PO 01/20/21 21:00 Trazodone HCl (Desyrel) 50 mg QHSP PRN PO INSOMNIA 01/19/21 01:40 Allergies Coded Allergies: No Known Allergies (Unverified , 10/24/20) STEVEN SO MD Jan 20, 2021 16:59
[2021-01-20] MEDS: QUEtiapine FUMARATE 200 MG TAB PO SCH (20:19)
[2021-01-20] MEDS: traZODone 50 MG TAB PO PRN (23:51)
[2021-01-20] MEDS: OLANZapine ORAL DISINTEGRATING TAB 5MG PO PRN (23:51)
[2021-01-21] MEDS: rOPINIRole 1MG TAB PO SCH ×2 (01:43→20:21)
[2021-01-21 07:19] VITALS: BP 126/60
[2021-01-21] MEDS: QUEtiapine FUMARATE 50MG TAB PO SCH ×2 (09:18→20:21)
[2021-01-21] MEDS: OMEPRAZOLE 20 MG CAP PO SCH (09:18)
[2021-01-21] MEDS: BUPRENORPHINE/NALOXONE 2-0.5MG SUBLINGUAL TABLET(SUBOXONE) SL SCH (09:18)
[2021-01-21] MEDS: cloNIDine 0.1MG TABLET PO SCH ×2 (09:18→20:21)
[2021-01-21] MEDS: buPROPion **XL** TABLET 150MG (WELLBUTRIN XL) PO SCH (15:12)
--- NOTE | 2021-01-21 15:12 | MHIPNPDOC ---
[facility] Progress Note Progress Note DATE OF SERVICE: 01/21/21 HISTORY: 35-year-old male with long-standing opiate abuse, now hoping to go back to [facility] program. Patient states the following, I have to be able to get home before I go to [facility] just to make sure about my stuff and whether I'll be able to keep my apartment. I need help, maybe from the rental boats caretaker Britany and the peer advocate Mary Grace as well as Bradley. He is presently on 4 mg Suboxone, but he states he needs 24 mg in order to qualify for a Sublocade shot. This is contradictory to what I've recently read that they require 7 days. He wants a supple take shot, which is a long-acting opiate treatment.. He requested additional Wellbutrin to be re-added to his medicines VITAL SIGNS: See below. NEW TEST RESULTS: None. CURRENT MEDICATIONS: See below. MENTAL STATUS EXAMINATION: Patient is a 35-year old male, who is clear and compliant. Speech: Is clear. Language skills are. No gross disturbance. Thought processes including:. No gross disturbance. Thought content: No gross disturbance. Abstract reasoning, and computation: Able to abstract and compute. Description of associations:no Loose association. Description of abnormal or psychotic thoughts: No psychotic thoughts. Judgment:, Poor. Insight:, Poor. Orientation: 3. Recent and remote memory:. No gross disturbance. Attention span and concentration:. No gross disturbance. Language:. No gross disturbance. Fund of knowledge: Reasonable. Mood: Euthymic. Affect:, Congruent. DIAGNOSES: 1., Chronic opiate dependence. 2. none 3., None. ASSESSMENT: Prognosis obviously poor for his chronic opiate dependence. His discussion of the sublocade shot seems contradictory to pharmacy information MANAGEMENT PLAN: Await placement. TIME SPENT: 35 minutes. Vital Signs Vital Signs Date Time Temp Pulse Resp B/P (MAP) Pulse Ox O2 Delivery O2 Flow Rate FiO2 01/21/21 09:18 126/60 01/21/21 07:19 99.0 67 20 98 Room Air Current Medications Current Medications Medications (Trade) Dose Ordered Sig/Jareth Route PRN Reason Start Time Stop Time Status Last Admin Dose Admin Acetaminophen (Tylenol Tab) 650 mg Q6HP PRN PO HEADACHE or DISCOMFORT 01/19/21 01:40 Al Hydrox/Mg Hydrox/Simethicone (Mylanta) 30 ml Q4HP PRN PO HEARTBURN/INDIGESTION 01/19/21 01:40 Buprenorphine/ Naloxone (Suboxone 2/ 0.5mg) 1 tab DAILY SL 01/20/21 09:00 01/21/21 09:18 Bupropion HCl (Wellbutrin Xl) 150 mg DAILY PO 01/21/21 09:00 Clonidine HCl (Catapres) 0.1 mg BID PO 01/20/21 09:00 01/21/21 09:18 Home Med (Med Rec Complete!) ASDIRECTED XX 01/19/21 09:05 01/19/21 09:04 DC Magnesium Hydroxide (Milk Of Magnesia) 30 ml DAILYPRN PRN PO CONSTIPATION 01/19/21 01:40 Nicotine (Nicoderm Cq 21mg) 1 patch DAILY PRN TD NICOTINE WITHDRAWAL 01/19/21 01:40 Olanzapine (ZyPREXA ZYDIS) 5 mg Q4HP PRN PO AGITATION 01/19/21 01:40 01/20/21 23:51 Omeprazole (PriLOSEC) 20 mg DAILY PO 01/20/21 09:00 01/21/21 09:18 Quetiapine Fumarate (SEROquel) 50 mg BID PO 01/20/21 09:00 01/21/21 09:18 Quetiapine Fumarate (SEROquel) 600 mg QHS PO 01/20/21 21:00 01/20/21 20:19 Ropinirole HCl (Requip) 1 mg QHS PO 01/20/21 23:55 01/21/21 01:43 Trazodone HCl (Desyrel) 50 mg QHSP PRN PO INSOMNIA 01/19/21 01:40 01/20/21 23:51 Allergies Coded Allergies: No Known Allergies (Unverified , 10/24/20) STEVEN SO MD Jan 21, 2021 15:12
[2021-01-21] MEDS: NICOTINE 21MG/24HR 1 EA TRANSDERMAL TD SCH (15:17)
[2021-01-21 19:04] VITALS: BP 121/68
[2021-01-21] MEDS: QUEtiapine FUMARATE 200 MG TAB PO SCH (20:21)
[2021-01-22] MEDS: OLANZapine ORAL DISINTEGRATING TAB 5MG PO PRN (00:48)
[2021-01-22] MEDS: traZODone 50 MG TAB PO PRN (00:48)
[2021-01-22 06:00] VITALS: BP 118/68
[2021-01-22] MEDS: BUPRENORPHINE/NALOXONE 2-0.5MG SUBLINGUAL TABLET(SUBOXONE) SL SCH (08:29)
[2021-01-22] MEDS: OMEPRAZOLE 20 MG CAP PO SCH (08:31)
[2021-01-22] MEDS: buPROPion **XL** TABLET 150MG (WELLBUTRIN XL) PO SCH (08:31)
[2021-01-22] MEDS: QUEtiapine FUMARATE 50MG TAB PO SCH ×2 (08:31→15:21)
[2021-01-22] MEDS: NICOTINE 21MG/24HR 1 EA TRANSDERMAL TD SCH (08:31)
[2021-01-22] MEDS: cloNIDine 0.1MG TABLET PO SCH ×2 (08:31→20:21)
--- NOTE | 2021-01-22 11:30 | MHIPNPDOC ---
[facility] Progress Note Progress Note DATE OF SERVICE: 01/22/21 HISTORY: 35-year-old with polysubstance abuse and failed attempts at rehabilitation. VITAL SIGNS: See below. NEW TEST RESULTS: None. CURRENT MEDICATIONS: See below. MENTAL STATUS EXAMINATION: Patient is a 35-year old male, whose main concern is outside preparations before going to rehabilitation Speech: Is no gross disturbance. Language skills are. No gross disturbance. Thought processes including:. No gross disturbance. Thought content: Focused on rehabilitation plans. Abstract reasoning, and computation:. No gross disturbance. Description of associations:, No loose association. Description of abnormal or psychotic thoughts:. No psychotic thought. Judgment: Poor. Insight:, Poor. Orientation: 3. Recent and remote memory: Intact. Attention span and concentration: Intact. Language:. No gross disturbance. Fund of knowledge: Reasonable. Mood: Euthymic. Affect:, Congruent. DIAGNOSES: 1. Polysubstance abuse and dependence. 2., Antisocial traits. 3. None. ASSESSMENT: As above MANAGEMENT PLAN:. Transportation to rehabilitation. Preparations for that will be discussed with him as they are. His concern. TIME SPENT: 30 minutes. Vital Signs Vital Signs Date Time Temp Pulse Resp B/P (MAP) Pulse Ox O2 Delivery O2 Flow Rate FiO2 01/22/21 08:31 114/64 01/22/21 06:00 97.2 86 18 97 01/21/21 07:19 Room Air Current Medications Current Medications Medications (Trade) Dose Ordered Sig/Jareth Route PRN Reason Start Time Stop Time Status Last Admin Dose Admin Acetaminophen (Tylenol Tab) 650 mg Q6HP PRN PO HEADACHE or DISCOMFORT 01/19/21 01:40 Al Hydrox/Mg Hydrox/Simethicone (Mylanta) 30 ml Q4HP PRN PO HEARTBURN/INDIGESTION 01/19/21 01:40 Buprenorphine/ Naloxone (Suboxone 2/ 0.5mg) 1 tab DAILY SL 01/20/21 09:00 01/22/21 08:29 Bupropion HCl (Wellbutrin Xl) 150 mg DAILY PO 01/21/21 09:00 01/22/21 08:31 Clonidine HCl (Catapres) 0.1 mg BID PO 01/20/21 09:00 01/22/21 08:31 Home Med (Med Rec Complete!) ASDIRECTED XX 01/19/21 09:05 01/19/21 09:04 DC Magnesium Hydroxide (Milk Of Magnesia) 30 ml DAILYPRN PRN PO CONSTIPATION 01/19/21 01:40 Nicotine (Nicoderm Cq 21mg) 1 patch DAILY TD 01/21/21 09:00 01/22/21 08:31 Nicotine (Nicoderm Cq 21mg) 1 patch DAILY PRN TD NICOTINE WITHDRAWAL 01/19/21 01:40 01/21/21 15:08 DC Olanzapine (ZyPREXA ZYDIS) 5 mg Q4HP PRN PO AGITATION 01/19/21 01:40 01/22/21 00:48 Omeprazole (PriLOSEC) 20 mg DAILY PO 01/20/21 09:00 01/22/21 08:31 Quetiapine Fumarate (SEROquel) 50 mg BID PO 01/20/21 09:00 01/22/21 08:31 Quetiapine Fumarate (SEROquel) 600 mg QHS PO 01/20/21 21:00 01/21/21 20:21 Ropinirole HCl (Requip) 1 mg QHS PO 01/20/21 23:55 01/21/21 20:21 Trazodone HCl (Desyrel) 50 mg QHSP PRN PO INSOMNIA 01/19/21 01:40 01/22/21 00:48 Allergies Coded Allergies: No Known Allergies (Unverified , 10/24/20) STEVEN SO MD Jan 22, 2021 11:30
[2021-01-22 17:56] VITALS: BP 132/70
[2021-01-22] MEDS: QUEtiapine FUMARATE 200 MG TAB PO SCH (20:21)
[2021-01-22] MEDS: rOPINIRole 1MG TAB PO SCH (20:21)
[2021-01-23 06:58] VITALS: BP 104/55
[2021-01-23] MEDS: BUPRENORPHINE/NALOXONE 2-0.5MG SUBLINGUAL TABLET(SUBOXONE) SL SCH (09:08)
[2021-01-23] MEDS: cloNIDine 0.1MG TABLET PO SCH ×2 (09:09→20:23)
[2021-01-23] MEDS: buPROPion **XL** TABLET 150MG (WELLBUTRIN XL) PO SCH (09:09)
[2021-01-23] MEDS: OMEPRAZOLE 20 MG CAP PO SCH (09:09)
[2021-01-23] MEDS: QUEtiapine FUMARATE 50MG TAB PO SCH ×2 (09:09→14:09)
[2021-01-23] MEDS: NICOTINE 21MG/24HR 1 EA TRANSDERMAL TD SCH (09:10)
--- NOTE | 2021-01-23 16:09 | MHIPNPDOC ---
[facility] Progress Note Progress Note DATE OF SERVICE: 01/23/21 HISTORY: 35-year-old male, long history of recurrent opiate abuse and rehabilitation. VITAL SIGNS: See below. NEW TEST RESULTS: None. CURRENT MEDICATIONS: See below. MENTAL STATUS EXAMINATION: Patient is a 35 year old male, who is awaiting rehabilitation program. Speech: Is no gross disturbance. Language skills are. No gross disturbance. Thought processes including:. No gross disturbance. Thought content: Wanting to go home to get his things go for rehabilitation. Abstract reasoning, and computation: Able to abstract. Description of associations:. No loose associations. Description of abnormal or psychotic thoughts:. No psychotic thought. Judgment:Poor Insight: Poor. Orientation: 3. Recent and remote memory: Intact. Attention span and concentration: Intact. Language:. No disturbance. Fund of knowledge: Reasonable. Mood: Euthymic. Affect: Congruent. DIAGNOSES: 1. Chronic opiate use and dependence. 2. None. 3.. None. ASSESSMENT: As above MANAGEMENT PLAN:. Await placement. TIME SPENT: 20 minutes. Vital Signs Vital Signs Date Time Temp Pulse Resp B/P (MAP) Pulse Ox O2 Delivery O2 Flow Rate FiO2 01/23/21 09:09 120/69 01/23/21 06:58 97.5 75 12 96 Room Air Current Medications Current Medications Medications (Trade) Dose Ordered Sig/Jareth Route PRN Reason Start Time Stop Time Status Last Admin Dose Admin Acetaminophen (Tylenol Tab) 650 mg Q6HP PRN PO HEADACHE or DISCOMFORT 01/19/21 01:40 Al Hydrox/Mg Hydrox/Simethicone (Mylanta) 30 ml Q4HP PRN PO HEARTBURN/INDIGESTION 01/19/21 01:40 Buprenorphine/ Naloxone (Suboxone 2/ 0.5mg) 1 tab DAILY SL 01/20/21 09:00 01/23/21 09:08 Bupropion HCl (Wellbutrin Xl) 150 mg DAILY PO 01/21/21 09:00 01/23/21 09:09 Clonidine HCl (Catapres) 0.1 mg BID PO 01/20/21 09:00 01/23/21 09:09 Home Med (Med Rec Complete!) ASDIRECTED XX 01/19/21 09:05 01/19/21 09:04 DC Magnesium Hydroxide (Milk Of Magnesia) 30 ml DAILYPRN PRN PO CONSTIPATION 01/19/21 01:40 Nicotine (Nicoderm Cq 21mg) 1 patch DAILY TD 01/21/21 09:00 01/23/21 09:10 Nicotine (Nicoderm Cq 21mg) 1 patch DAILY PRN TD NICOTINE WITHDRAWAL 01/19/21 01:40 01/21/21 15:08 DC Olanzapine (ZyPREXA ZYDIS) 5 mg Q4HP PRN PO AGITATION 01/19/21 01:40 01/22/21 00:48 Omeprazole (PriLOSEC) 20 mg DAILY PO 01/20/21 09:00 01/23/21 09:09 Quetiapine Fumarate (SEROquel) 50 mg BID PO 01/20/21 09:00 01/22/21 15:16 DC 01/22/21 08:31 Quetiapine Fumarate (SEROquel) 50 mg BID@0900,1400 PO 01/22/21 14:00 01/23/21 14:09 Quetiapine Fumarate (SEROquel) 600 mg QHS PO 01/20/21 21:00 01/22/21 20:21 Ropinirole HCl (Requip) 1 mg QHS PO 01/20/21 23:55 01/22/21 20:21 Trazodone HCl (Desyrel) 50 mg QHSP PRN PO INSOMNIA 01/19/21 01:40 01/22/21 00:48 Allergies Coded Allergies: No Known Allergies (Unverified , 10/24/20) STEVEN SO MD Jan 23, 2021 16:09
[2021-01-23 16:19] VITALS: BP 123/70
[2021-01-23] MEDS: rOPINIRole 1MG TAB PO SCH (20:23)
[2021-01-23] MEDS: QUEtiapine FUMARATE 200 MG TAB PO SCH (20:23)
[2021-01-23] MEDS: traZODone 50 MG TAB PO PRN (23:57)
[2021-01-23] MEDS: OLANZapine ORAL DISINTEGRATING TAB 5MG PO PRN (23:57)
[2021-01-24 06:32] VITALS: BP 97/59
[2021-01-24] MEDS: OMEPRAZOLE 20 MG CAP PO SCH (08:23)
[2021-01-24] MEDS: QUEtiapine FUMARATE 50MG TAB PO SCH ×2 (08:23→14:06)
[2021-01-24] MEDS: buPROPion **XL** TABLET 150MG (WELLBUTRIN XL) PO SCH (08:23)
[2021-01-24] MEDS: BUPRENORPHINE/NALOXONE 2-0.5MG SUBLINGUAL TABLET(SUBOXONE) SL SCH (08:23)
[2021-01-24] MEDS: cloNIDine 0.1MG TABLET PO SCH ×2 (08:24→20:00)
[2021-01-24] MEDS: NICOTINE 21MG/24HR 1 EA TRANSDERMAL TD SCH (08:24)
--- NOTE | 2021-01-24 14:58 | MHIPNPDOC ---
[facility] Progress Note Progress Note DATE OF SERVICE: 01/24/21 HISTORY: 35-year-old male with polysubstance abuse, hoping to get into drug rehabilitation program. Finding openings for those programs is difficult. VITAL SIGNS: See below. NEW TEST RESULTS: None. CURRENT MEDICATIONS: See below. MENTAL STATUS EXAMINATION: Patient is a 35-year old male, who is, downcast, hoping he would be able to transfer to rehabilitation program directly from here. Speech: Is no disturbance. Language skills are. No gross disturbance. Thought processes including: Focusing on transferring to rehabilitation. Thought content:. No gross disturbance. Abstract reasoning, and computation: Able to abstract and computer. Description of associations:. No loose association. Description of abnormal or psychotic thoughts:. No abnormal psychotic thoughts. Judgment: Intact. Insight:. Fair. Orientation: 3. Recent and remote memory: Intact. Attention span and concentration: Intact. Language:. No gross disturbance. Fund of knowledge: Reasonable. Mood: Euthymic. Affect:, Congruent. DIAGNOSES: 1. Polysubstance abuse and dependence. 2. None. 3.. None. ASSESSMENT: Still waiting for rehabilitation bed MANAGEMENT PLAN: If bed is not available, may have to discharge to home for him to wait. TIME SPENT: 30 minutes. Vital Signs Vital Signs Date Time Temp Pulse Resp B/P (MAP) Pulse Ox O2 Delivery O2 Flow Rate FiO2 01/24/21 08:24 115/73 01/24/21 06:32 98.4 74 12 99 Room Air Current Medications Current Medications Medications (Trade) Dose Ordered Sig/Jareth Route PRN Reason Start Time Stop Time Status Last Admin Dose Admin Acetaminophen (Tylenol Tab) 650 mg Q6HP PRN PO HEADACHE or DISCOMFORT 01/19/21 01:40 Al Hydrox/Mg Hydrox/Simethicone (Mylanta) 30 ml Q4HP PRN PO HEARTBURN/INDIGESTION 01/19/21 01:40 Buprenorphine/ Naloxone (Suboxone 2/ 0.5mg) 1 tab DAILY SL 01/20/21 09:00 01/24/21 08:23 Bupropion HCl (Wellbutrin Xl) 150 mg DAILY PO 01/21/21 09:00 01/24/21 08:23 Clonidine HCl (Catapres) 0.1 mg BID PO 01/20/21 09:00 01/24/21 08:24 Home Med (Med Rec Complete!) ASDIRECTED XX 01/19/21 09:05 01/19/21 09:04 DC Magnesium Hydroxide (Milk Of Magnesia) 30 ml DAILYPRN PRN PO CONSTIPATION 01/19/21 01:40 Nicotine (Nicoderm Cq 21mg) 1 patch DAILY TD 01/21/21 09:00 01/24/21 08:24 Nicotine (Nicoderm Cq 21mg) 1 patch DAILY PRN TD NICOTINE WITHDRAWAL 01/19/21 01:40 01/21/21 15:08 DC Olanzapine (ZyPREXA ZYDIS) 5 mg Q4HP PRN PO AGITATION 01/19/21 01:40 01/23/21 23:57 Omeprazole (PriLOSEC) 20 mg DAILY PO 01/20/21 09:00 01/24/21 08:23 Quetiapine Fumarate (SEROquel) 50 mg BID PO 01/20/21 09:00 01/22/21 15:16 DC 01/22/21 08:31 Quetiapine Fumarate (SEROquel) 50 mg BID@0900,1400 PO 01/22/21 14:00 01/24/21 14:06 Quetiapine Fumarate (SEROquel) 600 mg QHS PO 01/20/21 21:00 01/23/21 20:23 Ropinirole HCl (Requip) 1 mg QHS PO 01/20/21 23:55 01/23/21 20:23 Trazodone HCl (Desyrel) 50 mg QHSP PRN PO INSOMNIA 01/19/21 01:40 01/23/21 23:57 Allergies Coded Allergies: No Known Allergies (Unverified , 10/24/20) STEVEN SO MD Jan 24, 2021 14:58
[2021-01-24 16:42] VITALS: BP 130/69
[2021-01-24] MEDS: traZODone 50 MG TAB PO PRN (19:59)
[2021-01-24] MEDS: OLANZapine ORAL DISINTEGRATING TAB 5MG PO PRN (19:59)
[2021-01-24] MEDS: QUEtiapine FUMARATE 200 MG TAB PO SCH (20:00)
[2021-01-24] MEDS: rOPINIRole 1MG TAB PO SCH (20:00)
[2021-01-25 06:25] VITALS: BP 95/52
[2021-01-25] MEDS: buPROPion **XL** TABLET 150MG (WELLBUTRIN XL) PO SCH (08:59)
[2021-01-25] MEDS: QUEtiapine FUMARATE 50MG TAB PO SCH ×2 (08:59→14:31)
[2021-01-25] MEDS: cloNIDine 0.1MG TABLET PO SCH ×2 (08:59→20:12)
[2021-01-25] MEDS: OMEPRAZOLE 20 MG CAP PO SCH (08:59)
[2021-01-25] MEDS: BUPRENORPHINE/NALOXONE 2-0.5MG SUBLINGUAL TABLET(SUBOXONE) SL SCH (08:59)
[2021-01-25] MEDS ORDERED: SERTRALINE HCL 50 MG TAB PO SCH (09:00)
[2021-01-25] MEDS: NICOTINE 21MG/24HR 1 EA TRANSDERMAL TD SCH (09:00)
--- NOTE | 2021-01-25 13:02 | MHIPNPDOC ---
[facility] Progress Note Progress Note DATE OF SERVICE: 01/25/21 HISTORY: 35-year-old with polysubstance abuse and dependence and depression. VITAL SIGNS: See below. NEW TEST RESULTS: None. CURRENT MEDICATIONS: See below. MENTAL STATUS EXAMINATION: Patient is a 35-year old male, who is expressing his depression more than previously. Unable due to bed availability to get rehabilitation, which she was hoping for. He has had multiple episodes of rehabilitation. We discussed his Wellbutrin and he states it was prescribed to him, but has not helped his depression. We discontinued it and added zoloft an antidepressant, to his regimen. Speech: Is no gross disturbance. Language skills are. No gross disturbance. Thought processes including:. No gross disturbance, focusing on rehabilitation and now as opposed to when he was admitted focusing on depression. Thought content: As above. Abstract reasoning, and computation: Able to abstract. Description of associations:. No loose association. Description of abnormal or psychotic thoughts:. No psychotic, so. Judgment: Fair. Insight:, Limited. Orientation: 3. Recent and remote memory: Intact. Attention span and concentration:. No gross disturbance. Language:. No gross disturbance. Fund of knowledge: Reasonable. Mood: Sad Affect: downcast DIAGNOSES: 1. Polysubstance abuse and dependence. 2.. Depression. 3. None. ASSESSMENT: Above MANAGEMENT PLAN: Treat depression with Zoloft. Patient may not be able to get rehabilitation bed and will have to go home. TIME SPENT:, 30 minutes. Vital Signs Vital Signs Date Time Temp Pulse Resp B/P (MAP) Pulse Ox O2 Delivery O2 Flow Rate FiO2 01/25/21 08:59 137/70 01/25/21 06:25 96.5 79 18 98 Room Air Current Medications Current Medications Medications (Trade) Dose Ordered Sig/Jareth Route PRN Reason Start Time Stop Time Status Last Admin Dose Admin Acetaminophen (Tylenol Tab) 650 mg Q6HP PRN PO HEADACHE or DISCOMFORT 01/19/21 01:40 Al Hydrox/Mg Hydrox/Simethicone (Mylanta) 30 ml Q4HP PRN PO HEARTBURN/INDIGESTION 01/19/21 01:40 Buprenorphine/ Naloxone (Suboxone 2/ 0.5mg) 1 tab DAILY SL 01/20/21 09:00 01/25/21 08:59 Bupropion HCl (Wellbutrin Xl) 150 mg DAILY PO 01/21/21 09:00 01/25/21 10:35 DC 01/25/21 08:59 Clonidine HCl (Catapres) 0.1 mg BID PO 01/20/21 09:00 01/25/21 08:59 Home Med (Med Rec Complete!) ASDIRECTED XX 01/19/21 09:05 01/19/21 09:04 DC Magnesium Hydroxide (Milk Of Magnesia) 30 ml DAILYPRN PRN PO CONSTIPATION 01/19/21 01:40 Nicotine (Nicoderm Cq 21mg) 1 patch DAILY TD 01/21/21 09:00 01/25/21 09:00 Nicotine (Nicoderm Cq 21mg) 1 patch DAILY PRN TD NICOTINE WITHDRAWAL 01/19/21 01:40 01/21/21 15:08 DC Olanzapine (ZyPREXA ZYDIS) 5 mg Q4HP PRN PO AGITATION 01/19/21 01:40 01/24/21 19:59 Omeprazole (PriLOSEC) 20 mg DAILY PO 01/20/21 09:00 01/25/21 08:59 Quetiapine Fumarate (SEROquel) 50 mg BID PO 01/20/21 09:00 01/22/21 15:16 DC 01/22/21 08:31 Quetiapine Fumarate (SEROquel) 50 mg BID@0900,1400 PO 01/22/21 14:00 01/25/21 08:59 Quetiapine Fumarate (SEROquel) 600 mg QHS PO 01/20/21 21:00 01/24/21 20:00 Ropinirole HCl (Requip) 1 mg QHS PO 01/20/21 23:55 01/24/21 20:00 Sertraline HCl (Zoloft) 50 mg QAM PO 01/25/21 09:00 01/25/21 11:08 Trazodone HCl (Desyrel) 50 mg QHSP PRN PO INSOMNIA 01/19/21 01:40 01/24/21 19:59 Allergies Coded Allergies: No Known Allergies (Unverified , 10/24/20) STEVEN SO MD Jan 25, 2021 13:02
[2021-01-25 16:33] VITALS: BP 130/72
[2021-01-25] MEDS: QUEtiapine FUMARATE 200 MG TAB PO SCH (20:11)
[2021-01-25] MEDS: rOPINIRole 1MG TAB PO SCH (20:11)
[2021-01-25] MEDS: traZODone 50 MG TAB PO PRN (22:35)
[2021-01-25] MEDS: OLANZapine ORAL DISINTEGRATING TAB 5MG PO PRN (22:35)
[2021-01-26 06:10] VITALS: BP 130/88
[2021-01-26] MEDS: SERTRALINE HCL 50 MG TAB PO SCH (09:55)
[2021-01-26] MEDS: QUEtiapine FUMARATE 50MG TAB PO SCH ×2 (09:55→14:18)
[2021-01-26] MEDS: NICOTINE 21MG/24HR 1 EA TRANSDERMAL TD SCH (09:56)
[2021-01-26] MEDS: BUPRENORPHINE/NALOXONE 2-0.5MG SUBLINGUAL TABLET(SUBOXONE) SL SCH (09:56)
[2021-01-26] MEDS: cloNIDine 0.1MG TABLET PO SCH ×2 (09:56→21:11)
[2021-01-26] MEDS: OMEPRAZOLE 20 MG CAP PO SCH (09:56)
--- NOTE | 2021-01-26 17:03 | MHIPNPDOC ---
[facility] Progress Note Progress Note DATE OF SERVICE: 01/26/21 HISTORY: 35-year-old male, polysubstance abuse and depression. VITAL SIGNS: See below. NEW TEST RESULTS: None. CURRENT MEDICATIONS: See below. MENTAL STATUS EXAMINATION: Patient is a 35-year old male, who is awaiting a rehabilitation bed, which will come available tomorrow. His mood is improved. Speech: Is. No gross disturbance. Language skills are. No gross disturbance. Thought processes including:. No gross disturbance. Thought content: Anticipation of rehabilitation. Abstract reasoning, and computation:. No gross disturbance. Description of associations:, No loose association. Description of abnormal or psychotic thoughts: No abnormal or psychotic thought. Judgment: Fair. Insight: Fair. Orientation: 3. Recent and remote memory: Intact. Attention span and concentration: Intact. Language:. No disturbance. Fund of knowledge: Reasonable. Mood: Improved. Affect:. brighter. DIAGNOSES: 1., Polysubstance abuse. 2., Major depression. 3. None. ASSESSMENT: As above MANAGEMENT PLAN:. Discharge tomorrow to drug rehabilitation center. TIME SPENT: 20 minutes. Vital Signs Vital Signs Date Time Temp Pulse Resp B/P (MAP) Pulse Ox O2 Delivery O2 Flow Rate FiO2 01/26/21 09:56 130/88 01/26/21 06:10 97.6 79 16 96 Room Air Current Medications Current Medications Medications (Trade) Dose Ordered Sig/Jareth Route PRN Reason Start Time Stop Time Status Last Admin Dose Admin Acetaminophen (Tylenol Tab) 650 mg Q6HP PRN PO HEADACHE or DISCOMFORT 01/19/21 01:40 Al Hydrox/Mg Hydrox/Simethicone (Mylanta) 30 ml Q4HP PRN PO HEARTBURN/INDIGESTION 01/19/21 01:40 Buprenorphine/ Naloxone (Suboxone 2/ 0.5mg) 1 tab DAILY SL 01/20/21 09:00 01/26/21 09:56 Bupropion HCl (Wellbutrin Xl) 150 mg DAILY PO 01/21/21 09:00 01/25/21 10:35 DC 01/25/21 08:59 Clonidine HCl (Catapres) 0.1 mg BID PO 01/20/21 09:00 01/26/21 09:56 Home Med (Med Rec Complete!) ASDIRECTED XX 01/19/21 09:05 01/19/21 09:04 DC Magnesium Hydroxide (Milk Of Magnesia) 30 ml DAILYPRN PRN PO CONSTIPATION 01/19/21 01:40 Nicotine (Nicoderm Cq 21mg) 1 patch DAILY TD 01/21/21 09:00 01/26/21 09:56 Nicotine (Nicoderm Cq 21mg) 1 patch DAILY PRN TD NICOTINE WITHDRAWAL 01/19/21 01:40 01/21/21 15:08 DC Olanzapine (ZyPREXA ZYDIS) 5 mg Q4HP PRN PO AGITATION 01/19/21 01:40 01/25/21 22:35 Omeprazole (PriLOSEC) 20 mg DAILY PO 01/20/21 09:00 01/26/21 09:56 Quetiapine Fumarate (SEROquel) 50 mg BID PO 01/20/21 09:00 01/22/21 15:16 DC 01/22/21 08:31 Quetiapine Fumarate (SEROquel) 50 mg BID@0900,1400 PO 01/22/21 14:00 01/26/21 14:18 Quetiapine Fumarate (SEROquel) 600 mg QHS PO 01/20/21 21:00 01/25/21 20:11 Ropinirole HCl (Requip) 1 mg QHS PO 01/20/21 23:55 01/25/21 20:11 Sertraline HCl (Zoloft) 50 mg QAM PO 01/25/21 09:00 01/26/21 06:42 DC 01/25/21 11:08 Sertraline HCl (Zoloft) 100 mg QAM PO 01/26/21 09:00 01/26/21 09:55 Trazodone HCl (Desyrel) 50 mg QHSP PRN PO INSOMNIA 01/19/21 01:40 01/25/21 22:35 Allergies Coded Allergies: No Known Allergies (Unverified , 10/24/20) STEVEN SO MD Jan 26, 2021 17:03
[2021-01-26 18:44] VITALS: BP 133/69
[2021-01-26] MEDS: rOPINIRole 1MG TAB PO SCH (21:10)
[2021-01-26] MEDS: QUEtiapine FUMARATE 200 MG TAB PO SCH (21:10)
[2021-01-26] MEDS: traZODone 50 MG TAB PO PRN (22:27)
[2021-01-26] MEDS: OLANZapine ORAL DISINTEGRATING TAB 5MG PO PRN (22:28)
[2021-01-27] MEDS ORDERED: QUET200T2 PO (05:47)
[2021-01-27] MEDS ORDERED: SERT50TA29 PO (05:47)
[2021-01-27 06:00] VITALS: BP 103/68
--- NOTE | 2021-01-27 08:04 | MHDSPDOC ---
[facility] Discharge Summary Discharge Summary DATE OF ADMISSION: Jan 18, 2021 at 21:32 DATE OF DISCHARGE: January 27, 2021 DISCHARGE DIAGNOSES 1. Depression. 2., Polysubstance abuse and dependence. REASON FOR ADMISSION: * Pt brought self to ED follwoing panic attack from drug use(IV Lidia), pt has hx of polysubstance abuse, has recent admission/transfer to [facility]. Chief Complaint * Pt reported on arrival to ED that he had recently used IV Lidia and came to ED after having a "panic attack". Pt had initially denied any SI/HI, was seen by [facility] for outpt referral info for substance abuse/MH tx. Pt reports recent transfer to [facility] for "Mental Health", admits he has been non-compliant with outpt f/u at [facility] states, "I haven't gone in a while". PT appears anxious, states he has been feeling paranoid about his residence, adds "I don't want to go back there, I know something bad will happen", when asked what he means by this pt reports he is feeling suicidal, denies any current plan, denies any prior attempts at self harm. PT reports vague AH, intermittent, without commands, denies VH/HI, denies any ETOH use, reports ongoing frequent drug abuse, most recently Lidia. Pt continues to state he is "afraid" of going home and fears something will happen to him or he will do something to harm self, pt remains anxious with poor eye contact, cannot CFS at this time. Patient is a 35 -year-old , male, who this 35-year-old male has had numerous drug rehabilitation admissions. He states he is depressed. He's been using drugs. He lives alone. He has no phone. He has no furniture. He got his apartment from "[facility] [place] He has been in that apartment 2 months previously. He lived in. He has a however graduated from a [employer] house here in [place]. He had spent numerous months in the jail [place] and was released in October. He moved to this apartment. He began using mildly. He feels he is stuck in the house. She is not followed up with his meds or his counseling. He was admitted some weeks ago to us. He goes to mental health center and was placed on numerous medications incomplete list. Wellbutrin, Seroquel and alyson nidine. He also states he was prescribed Adderall by [facility]. He was sent by our emergency room to us, we go and they put him on numerous medications. He does not remember all of them. He says he has follow-up appointments, but has not been going and he has not picked up numerous of his prescriptions. His most recent prescriptions that we found from his pharmacy have involved prazocin. 1 mg 2 tabs at night. Bupropion XL 150 daily, clonidine 0.1 twice a day, Seroquel 50 mg twice a day and Seroquel 600 at night He states I don't want to live alone and depressed. Maybe it's the drugs, but I hear things. I see things and think people are out to get me. His legal history is negative. His drug history. He has been ongoing for 20 years, been in 4-5 rehabilitation centers [facility]. His only psychiatric treatment has been in [place], as mentioned, he has no medical issues. His past history includes ADHD and anxiety disorder, and he states Adderall was prescribed by [facility]. He states that Dr. suero in [facility] prescribed these most recent meds. He states he has made no suicide attempts. Neurological history is negative. His surgical history is positive for oral surgery only. He states his mother lives in [place]. He has never seen his father or his siblings. However, he states his family cousins and aunts uncles have a history of addiction. Patient also was prescribed. Buprenorphine 4 mg/1 mg, but has not taken it since January 15. Patient presently denies auditory or visual hallucinations. He denies suicidal ideation and he denies homicidal ideation and states he tried to work while he was the jail house, but it was only 2 days a month. 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 He agreed to going back to rehabilitation, and fortunately, a bed was found. HOSPITAL COURSE:. Patient was started on Zoloft at increased dose mood began to improve DISCHARGE ASSESSMENT:. Depression. Mixed substance abuse and dependence MENTAL STATUS EXAMINATION ON DISCHARGE: Patient is a, 35-year old male, who is in improved mood and going to be going to rehabilitation. Speech is. No gross disturbance. Language skills are. No gross disturbance. Thought processes including: Hopeful for success and rehabilitation. Thought content: As above. Abstract reasoning, and computation: Able to abstract. Description of associations: No loose associations. Description of abnormal or psychotic thoughts:. No psychotic thought. Judgment: Fair. Insight: Fair Orientation to 3. Recent and remote memory: Intact. Attention span and concentration: No gross disturbance. Language:. No gross disturbance. Fund of knowledge: Reasonable. Mood: Improved. Affect:, Brighter. MEDICATIONS ON DISCHARGE: -, Zoloft for for depression. -, Seroquel for and depression. - PLAN/FOLLOWUP ARRANGEMENTS: Will be going to drug rehabilitation program. The amount of time spent in the coordination of care for this patient was approximately 20 minutes. ETOH/Disorder Med Rx ETOH/DRUG DISORDER RX: N/A Vital Signs/I&Os Vital Signs Date Time Temp Pulse Resp B/P (MAP) Pulse Ox O2 Delivery O2 Flow Rate FiO2 01/27/21 06:00 98.3 75 20 103/68 (80) 100 01/26/21 06:10 Room Air Medications Scheduled Clonidine HCl (Clonidine HCl) 0.1 Mg Tablet, 0.1 MG PO BID, (Reported) Omeprazole (Omeprazole) 20 Mg Capsule.dr, 20 MG PO BID, (Reported) Quetiapine Fumarate (Quetiapine Fumarate) 50 Mg Tablet, 50 MG PO BID, (Reported) Quetiapine Fumarate (Quetiapine Fumarate) 200 Mg Tablet, 600 MG PO QHS for Anxiety Depresssion, #21 Ropinirole HCl (Ropinirole HCl) 1 Mg Tablet, 1 MG PO QHS, (Reported) Sertraline HCl (Sertraline HCl) 50 Mg Tablet, 100 MG PO QAM for Depression, #14 Allergies Coded Allergies: No Known Allergies (Unverified , 10/24/20) STEVEN SO MD Jan 27, 2021 08:04
[2021-01-27] MEDS: BUPRENORPHINE/NALOXONE 2-0.5MG SUBLINGUAL TABLET(SUBOXONE) SL SCH (08:22)
[2021-01-27] MEDS: NICOTINE 21MG/24HR 1 EA TRANSDERMAL TD SCH (08:22)
[2021-01-27] MEDS: QUEtiapine FUMARATE 50MG TAB PO SCH (08:22)
[2021-01-27] MEDS: OMEPRAZOLE 20 MG CAP PO SCH (08:22)
[2021-01-27] MEDS: SERTRALINE HCL 50 MG TAB PO SCH (08:22)
[2021-01-27 08:23] VITALS: BP 124/70
[2021-01-27] MEDS: cloNIDine 0.1MG TABLET PO SCH (08:23)
== END 2021-01-27 10:05 | DRG 754 ==
LOC: M ED 21:31 → M ED INP 21:32 → M PSY 01-19 02:36
PROVIDERS: ADMIT Psychiatry & Neurology Child & Adolescent Psychiatry; ATTEND Psychiatry & Neurology Child & Adolescent Psychiatry
DX: F32.9 Major depressive disorder, single episode, unspecified (principal); I10 Essential (primary) hypertension; Z79.899 Other long term (current) drug therapy; K21.9 Gastro-esophageal reflux disease without esophagitis; F11.10 Opioid abuse, uncomplicated; F43.10 Post-traumatic stress disorder, unspecified; F41.9 Anxiety disorder, unspecified; N48.6 Induration penis plastica; E86.0 Dehydration